=== PATIENT | male | born 1940 | race Caucasian/White ===

== ENCOUNTER 2016-10-10 23:38 | Inpatient (IN) ==
--- NOTE | 2016-10-10 23:58 | Emergency Department Note ---
Disposition Clinical Impression: Small bowel obstruction Disposition: Admitted As Inpatient Condition: Fair Time of Disposition: 03:26 Abdominal Pain HPI - General Chief Complaint: ED Abdominal Pain Stated Complaint: abdominal pain Time Seen by Provider: 10/10/16 23:40 Source: patient Mode of arrival: EMS Limitations: no limitations Nursing Notes Reviewed: Yes Vital Signs Reviewed: Yes - History of Present Illness HPI Narrative: Alert and oriented and nontoxic-appearing 76-year-old male is brought to the emergency department by EMS for evaluation of epigastric abdominal pain, bloating, nausea, vomiting, and subjective fevers. The patient states that his symptoms have been ongoing for the past several days however worsened this past Monday. The patient was seen and evaluated at the [facility] earlier this afternoon. He states that at that time, he underwent abdominal x-rays which are concerning for a small bowel obstruction. It was suggested to the patient at the OR that he be transferred to [place] for surgical consultation however the patient for some reason declined. He presents tonight after continued abdominal pain and vomiting after eating his evening meal. Pt Subjective Complaint: abdominal pain Onset (ago): day(s) Consistency: Worsening Location: epigastric Pain Severity: moderate Pain Scale: 4 Quality: aching, fullness Radiation: none Migration to: no migration Improves with: nothing Worsens with: eating Associated symptoms: Reports: nausea, vomiting, diarrhea, fever, chills. Denies : constipation, dysuria - Related Data Allergies Allergy/AdvReac Type Severity Reaction Status Date / Time azithromycin Allergy See Verified 10/10/16 23:39 Comments All systems ED: reviewed and negative except as stated. Constitutional: Reports: as per HPI, fever, chills. Denies: weakness, weight change Eyes: Denies: eye pain, eye discharge, vision change ENT ED: Denies: ear pain, throat pain, dental pain, hearing loss, epistaxis, congestion, dysphagia Cardiovascular: Denies: chest pain, palpitations, dyspnea on exertion, edema, syncope Respiratory: Denies: cough, dyspnea, wheezes, hemoptysis, stridor Gastrointestinal: Reports: as per HPI, abdominal pain, nausea, vomiting, diarrhea. Denies: constipation, hematemesis, melena, hematochezia Genitourinary: Denies: urgency, dysuria, frequency, hematuria Musculoskeletal: Denies: back pain, neck pain, arthralgia, myalgia Integumentary: Denies: rash, abrasion, lesions Neurological: Denies: headache, weakness, numbness, paresthesias, confusion, abnormal gait, vertigo Psychiatric: Denies: anxiety, depression, suicidal thoughts, homicidal thoughts , auditory hallucinations, visual hallucinations Endocrine: Denies: fatigue Hematological/Lymphatic: Denies: easy bleeding, easy bruising Allergic/Immunologic: Denies: facial swelling, urticaria Abdominal Pain PMH - Past Medical History Medical history: Reports: hypertension Male Surgical History: Reports: cholecystectomy, herniorrhaphy Psychiatric history: Reports: no psych history - Social History Smoking status: Former smoker Alcohol use: Reports: occasionally Drug use: Reports: none Physical Exam - General Limitations: no limitations General appearance: alert, in no apparent distress - Head Head exam: atraumatic, normocephalic, normal inspection - Eye Eye exam: Present: normal appearance, PERRL, EOMI. Absent: nystagmus - ENT ENT exam: mucous membranes moist - Neck Neck exam: Present: normal inspection, full ROM, trachea midline - Respiratory Respiratory exam: Present: normal lung sounds bilaterally - Cardiovascular Cardiovascular exam: Present: regular rate, normal rhythm, normal heart sounds - Abdominal Exam Abdominal exam: Present: soft, tenderness, distention (Mild distention noted), normal bowel sounds. Absent: guarding, rebound, rigidity Abdominal tenderness: Present: epigastrium, mild - Extremities Exam Extremities exam: Present: normal inspection, full ROM. Absent: tenderness, pedal edema - Neurological Exam Neurological exam: Present: alert, oriented X3 - Psychiatric Psychiatric exam: Present: normal affect, normal mood - Skin Skin exam: Present: warm, dry, intact, normal color Course Course Narrative: 0030: Records from the [facility] regarding the patient's previous visit there earlier today showed in fact the patient did undergo an acute abdominal series x-ray. The impression on the x-ray reading was as follows: Recommend further evaluation with CT and general surgery consultation. I have discussed this patient's case with Dr. Haji. Dr. Haji's had a [id number] evaluation with patient and reviewed his CT results. Dr. Garza states that as the patient has not vomited since he has been here, that we will forego placement of a nasogastric tube at this time. Raissa is recommend admitting the patient to the hospitalist service for further evaluation and observation. 0330: I have spoke with Dr. Chambers of the hospitalist service. Dr. Chambers has accepted the patient for further observation and evaluation. Vital Signs Temperature 98.3 F 10/10/16 23:39 Pulse Rate 100 10/10/16 23:39 Respiratory Rate 18 10/10/16 23:39 Blood Pressure 153/95 10/10/16 23:39 O2 Sat by Pulse Oximetry 97 10/10/16 23:39 Temperature 98.3 F 10/10/16 23:39 Pulse Rate 100 10/10/16 23:39 Respiratory Rate 18 10/10/16 23:39 Blood Pressure 153/95 10/10/16 23:39 O2 Sat by Pulse Oximetry 97 10/10/16 23:39 Oxygen Delivery Oxygen Delivery Room Air Abdominal Pain - Medical Records Medical records reviewed: Yes I reviewed the patient's medical records. - Lab Data Lab results reviewed: Yes I reviewed the patient's lab results. Lab results narrative: Laboratory Last Values WBC 9.3 K/mcL (4.3-11.1) 10/11/16 00:10 RBC 4.53 M/mcL (4.19-5.50) 10/11/16 00:10 Hgb 14.9 g/dL (12.9-16.9) 10/11/16 00:10 Hct 41.6 % (37.5-50.1) 10/11/16 00:10 MCV 91.8 fL (83.0-100.0) 10/11/16 00:10 MCH 32.9 pg (28.0-33.3) 10/11/16 00:10 MCHC 35.8 g/dL (31.6-35.5) H 10/11/16 00:10 RDW 12.0 % (11.5-14.5) 10/11/16 00:10 Plt Count 179 K/mcL (140-400) 10/11/16 00:10 MPV 9.1 fL (9.4-12.4) L 10/11/16 00:10 Immature Gran % 0.2 % (0-4) 10/11/16 00:10 Seg Neutrophils % 78.4 % 10/11/16 00:10 Lymphocytes % 11.3 % 10/11/16 00:10 Monocytes % 9.8 % 10/11/16 00:10 Eosinophils % 0.1 % 10/11/16 00:10 Basophils % 0.2 % 10/11/16 00:10 Neutrophils # 7.3 K/mcL (1.6-8.9) 10/11/16 00:10 Lymphocytes # 1.1 K/mcL (0.6-4.6) 10/11/16 00:10 Monocytes # 0.9 K/mcL (0.0-1.3) 10/11/16 00:10 Eosinophils # 0.0 K/mcL (0.0-0.6) 10/11/16 00:10 Basophils # 0.0 K/mcL (0.0-0.2) 10/11/16 00:10 PT 11.4 Seconds (9.4-12.1) 10/11/16 00:10 INR 1.1 10/11/16 00:10 APTT 24.9 Seconds (26.0-36.0) L 10/11/16 00:10 Sodium 136 mEq/L (136-145) 10/11/16 00:10 Potassium 3.9 mEq/L (3.5-4.5) 10/11/16 00:10 Chloride 103 mEq/L (98-109) 10/11/16 00:10 Carbon Dioxide 22 mEq/L (19-29) 10/11/16 00:10 BUN 27 mg/dL (8-26) H 10/11/16 00:10 Creatinine 1.31 mg/dL (0.72-1.25) H 10/11/16 00:10 Est GFR ( Amer) > 60 (> 60) 10/11/16 00:10 Est GFR (Non-Af Amer) 53 (> 60) L 10/11/16 00:10 BUN/Creatinine Ratio 21 (6-26) 10/11/16 00:10 Glucose 122 mg/dL (70-99) H 10/11/16 00:10 Calculated Osmolality 288 (280-300) 10/11/16 00:10 Lactic Acid 1.0 mmol/L (0.5-2.2) 10/11/16 00:10 Calcium 9.1 mg/dL (8.6-10.8) 10/11/16 00:10 Total Bilirubin 0.9 mg/dL (0.2-1.2) 10/11/16 00:10 Direct Bilirubin 0.4 mg/dL (0.0-0.5) 10/11/16 00:10 Indirect Bilirubin 0.5 mg/dL (0.0-1.2) 10/11/16 00:10 AST 21 Units/L (5-34) 10/11/16 00:10 ALT 22 Units/L (0-55) 10/11/16 00:10 Alkaline Phosphatase 62 Units/L (38-126) 10/11/16 00:10 Troponin I 0.00 ng/mL (0-0.03) 10/11/16 00:10 Serum Total Protein 7.5 g/dL (6.0-8.3) 10/11/16 00:10 Albumin 3.7 g/dL (3.5-5.0) 10/11/16 00:10 Globulin 3.8 g/dL (2.4-3.5) H 10/11/16 00:10 Albumin/Globulin Ratio 1.0 (1.1-2.2) L 10/11/16 00:10 Amylase 63 Units/L (25-125) 10/11/16 00:10 Lipase 20 Units/L (8-78) 10/11/16 00:10 Result diagrams: 10/11/16 00:10 10/11/16 00:10 Lab Results 10/11/16 10/11/16 10/11/16 Range/Units 00:10 00:10 00:10 WBC 9.3 (4.3-11.1) K/mcL RBC 4.53 (4.19-5.50) M/mcL Hgb 14.9 (12.9-16.9) g/dL Hct 41.6 (37.5-50.1) % MCV 91.8 (83.0-100.0) fL MCH 32.9 (28.0-33.3) pg MCHC 35.8 H (31.6-35.5) g/dL RDW 12.0 (11.5-14.5) % Plt Count 179 (140-400) K/mcL MPV 9.1 L (9.4-12.4) fL Immature Gran % 0.2 (0-4) % Seg Neutrophils % 78.4 % Lymphocytes % 11.3 % Monocytes % 9.8 % Eosinophils % 0.1 % Basophils % 0.2 % Neutrophils # 7.3 (1.6-8.9) K/mcL Lymphocytes # 1.1 (0.6-4.6) K/mcL Monocytes # 0.9 (0.0-1.3) K/mcL Eosinophils # 0.0 (0.0-0.6) K/mcL Basophils # 0.0 (0.0-0.2) K/mcL PT 11.4 (9.4-12.1) Seconds INR 1.1 APTT 24.9 L (26.0-36.0) Seconds Sodium 136 (136-145) mEq/L Potassium 3.9 (3.5-4.5) mEq/L Chloride 103 (98-109) mEq/L Carbon Dioxide 22 (19-29) mEq/L BUN 27 H (8-26) mg/dL Creatinine 1.31 H (0.72-1.25) mg/dL Est GFR ( Amer) > 60 (> 60) Est GFR (Non-Af Amer) 53 L (> 60) BUN/Creatinine Ratio 21 (6-26) Glucose 122 H (70-99) mg/dL Calculated Osmolality 288 (280-300) Lactic Acid (0.5-2.2) mmol/L Calcium 9.1 (8.6-10.8) mg/dL Total Bilirubin 0.9 (0.2-1.2) mg/dL Direct Bilirubin 0.4 (0.0-0.5) mg/dL Indirect Bilirubin 0.5 (0.0-1.2) mg/dL AST 21 (5-34) Units/L ALT 22 (0-55) Units/L Alkaline Phosphatase 62 (38-126) Units/L Troponin I (0-0.03) ng/mL Serum Total Protein 7.5 (6.0-8.3) g/dL Albumin 3.7 (3.5-5.0) g/dL Globulin 3.8 H (2.4-3.5) g/dL Albumin/Globulin Ratio 1.0 L (1.1-2.2) Amylase 63 (25-125) Units/L Lipase 20 (8-78) Units/L 07/25/17 07/25/17 Range/Units 00:10 00:10 WBC (4.3-11.1) K/mcL RBC (4.19-5.50) M/mcL Hgb (12.9-16.9) g/dL Hct (37.5-50.1) % MCV (83.0-100.0) fL MCH (28.0-33.3) pg MCHC (31.6-35.5) g/dL RDW (11.5-14.5) % Plt Count (140-400) K/mcL MPV (9.4-12.4) fL Immature Gran % (0-4) % Seg Neutrophils % % Lymphocytes % % Monocytes % % Eosinophils % % Basophils % % Neutrophils # (1.6-8.9) K/mcL Lymphocytes # (0.6-4.6) K/mcL Monocytes # (0.0-1.3) K/mcL Eosinophils # (0.0-0.6) K/mcL Basophils # (0.0-0.2) K/mcL PT (9.4-12.1) Seconds INR APTT (26.0-36.0) Seconds Sodium (136-145) mEq/L Potassium (3.5-4.5) mEq/L Chloride (98-109) mEq/L Carbon Dioxide (19-29) mEq/L BUN (8-26) mg/dL Creatinine (0.72-1.25) mg/dL Est GFR ( Amer) (> 60) Est GFR (Non-Af Amer) (> 60) BUN/Creatinine Ratio (6-26) Glucose (70-99) mg/dL Calculated Osmolality (280-300) Lactic Acid 1.0 (0.5-2.2) mmol/L Calcium (8.6-10.8) mg/dL Total Bilirubin (0.2-1.2) mg/dL Direct Bilirubin (0.0-0.5) mg/dL Indirect Bilirubin (0.0-1.2) mg/dL AST (5-34) Units/L ALT (0-55) Units/L Alkaline Phosphatase (38-126) Units/L Troponin I 0.00 (0-0.03) ng/mL Serum Total Protein (6.0-8.3) g/dL Albumin (3.5-5.0) g/dL Globulin (2.4-3.5) g/dL Albumin/Globulin Ratio (1.1-2.2) Amylase (25-125) Units/L Lipase (8-78) Units/L - Radiology Data Radiology results reviewed: Yes I reviewed the patient's radiology results. Chest X-Ray 10/10/16 23:49 IMPRESSION: No acute process. D/ / Elvin Dempsey MD / Elvin Dempsey MD Interpreting Provider: Elvin Dempsey MD Abdomen/Pelvis CT 10/11/16 00:39 IMPRESSION: Small bowel obstruction, possibly a partial small bowel obstruction given the lack of a focal transition point. D/ / Zackery Mcghee MD / Zackery Mcghee MD Interpreting Provider: Zackery Mcghee MD - EKG Data EKG attestation: Yes I reviewed and interpreted this EKG. EKG results narrative: EKG reviewed by Dr. Haji as well. EKG shows a sinus rhythm at a rate of 89 bpm. IN interval 154, QRS duration 85, QT/QTc is 334/380. No ectopy noted. No STEMI. Attestation Statement - Attestation Attestation: I, Luciano Haji MD, personally evaluated this patient and discussed their management with the midlevel provicer, PAC/SPEECH PATHOLOGIST ASSISTANT. I reviewed the midlevel provider 's note and agree with the documented findings, medical decision making, and plan of care. 76-year-old male presents to the emergency department with a complaint of just not feeling well for about the past week. States especially for the past for 5 days after he mowed his yard and that he he has not felt well. Monday evening he had some nausea and several episodes of vomiting. Since then he had no further vomiting but has had some nausea and generalized abdominal discomfort. He was seen earlier today at the OR for these complaints. He had an x-ray which they read as possible bowel obstruction. He presents here tonight because after he went home from the OR this evening he had another episode of vomiting with some increased abdominal discomfort and distention. He has been passing gas and after [facility] he had several loose bowel movements. No melena, hematemesis, or hematochezia. No urinary symptoms. No fever. He has a prior history of 2 small bowel obstructions in the past which resolved spontaneously. He has had a laparoscopic cholecystectomy. On examination patient is a well-developed well-nourished well-appearing elderly male in no acute distress. He is alert and oriented 3. There is no cyanosis or diaphoresis. Breath sounds are clear and equal bilaterally. Heart regular rate and rhythm. Abdomen is soft with some increased bowel sounds. There is mild distention. No obvious organomegaly or masses palpable. Labs reviewed. CT of the abdomen and pelvis consistent with partial small bowel obstruction. The hospitalist, Dr. Chambers, was consulted and accepted admission of the patient.
[2016-10-11 00:20] LABS: Basophils % 0.2 %; Eosinophils % 0.1 %; Hematocrit 41.6 % (37.5-50.1); Hemoglobin 14.9 g/dL (12.9-16.9); Immature Granulocytes % 0.2 % (0-4); Lymphocytes # 1.1 K/mcL (0.6-4.6); Lymphocytes % 11.3 %; Mean Corpuscular HGB Conc 35.8 g/dL (31.6-35.5); Mean Corpuscular Hemoglobin 32.9 pg (28.0-33.3); Mean Corpuscular Volume 91.8 fL (83.0-100.0); Mean Platelet Volume 9.1 fL (9.4-12.4); Monocytes # 0.9 K/mcL (0.0-1.3); Monocytes % 9.8 %; Neutrophils # 7.3 K/mcL (1.6-8.9); Platelet Count 179 K/mcL (140-400); Red Blood Count 4.53 M/mcL (4.19-5.50); Segmented Neutrophils % 78.4 %
[2016-10-11 00:25] LABS: INR 1.1; Prothrombin Time 11.4 Seconds (9.4-12.1)
[2016-10-11 00:27] LABS: Activated Partial Thrombo Time 24.9 Seconds (26.0-36.0)
[2016-10-11 00:34] LABS: Alanine Aminotransferase 22 Units/L (0-55); Albumin 3.7 g/dL (3.5-5.0); Alkaline Phosphatase 62 Units/L (38-126); Amylase 63 Units/L (25-125); Aspartate Amino Transferase 21 Units/L (5-34); BUN/Creatinine Ratio 21 (6-26); Bilirubin,Direct 0.4 mg/dL (0.0-0.5); Bilirubin,Indirect 0.5 mg/dL (0.0-1.2); Bilirubin,Total 0.9 mg/dL (0.2-1.2); Blood Urea Nitrogen 27 mg/dL (8-26); Calcium 9.1 mg/dL (8.6-10.8); Carbon Dioxide 22 mEq/L (19-29); Chloride 103 mEq/L (98-109); Globulin 3.8 g/dL (2.4-3.5); Glucose 122 mg/dL (70-99); Lipase 20 Units/L (8-78); Osmolality,Calculated 288 (280-300); Potassium 3.9 mEq/L (3.5-4.5); Sodium 136 mEq/L (136-145); Total Protein 7.5 g/dL (6.0-8.3); eGFR For African Americans > 60 (> 60); eGFR For Non-African Americans 53 (> 60)
[2016-10-11] MEDS ORDERED: 0.9 % Sodium Chloride 1,000 ML IVC ONE (00:45)
[2016-10-11] MEDS ORDERED: Ondansetron 4 MG/2 ML VIAL IVP PRN (04:30)
[2016-10-11] MEDS ORDERED: Naloxone 0.4 MG/ML INJ IVP PRN (04:30)
--- NOTE | 2016-10-11 04:34 | Internal Med History&Physical ---
Date of Encounter: 10/11/16 Time of Encounter: 05:00 Assessment and Plan (1) Partial small bowel obstruction Current visit: Yes Status: Acute Keep patient nothing by mouth. Most likely partial SBO because patient is having bowel movements. Serial abdominal exams. KUB x-ray in the morning. If patient develops episodes of nausea or vomiting, we will place NG tube. Consult surgery in a.m. Monitor vital signs. IV hydration. IV antiemetics and pain medications as needed. Moderate risk for complications (2) Essential hypertension Current visit: Yes Status: Chronic Blood pressure elevated. Likely from pain. Will treat with intravenous medications as needed. Internal Medicine - H&P: HPI Chief complaint: Abdominal pain, nausea Admitted From: Emergency Dept Plans for Post Hospital Care: Home History of present illness: Mr. Sarmiento is a 76 year old male patient with a history of essential hypertension presented to the ER with complaints of abdominal pain. Pain was generalized rated 4-10 in severity. Nonradiating. Symptoms have been going on for about 3 days. He had gone to the ER at [facility] yesterday and had undergone an abdominal x-ray which suggested that he had possible small bowel obstruction. He was recommended transfer to a tertiary care center for further evaluation. However, he decided to go home and see if it resolves spontaneously. His symptoms did not improve and so he came to the ER here. He has had a couple prior episodes of possible small bowel obstruction which resolved spontaneously with bowel rest in the hospital. He has only had a laparoscopic cholecystectomy in the past. He does have some nausea and had 1 episode of emesis. He has been having loose bowel movements over the past 3 days. Since coming to the ER, he has had about 6 bowel movements. Past Med Surg Social Fam HX - Past Medical History Attestation: Yes The following information was validated with the patient. Source: patient Medical history: hypertension Psychiatric history: no psych history - Social History Smoking Status: Former smoker Smokeless Tobacco Status: No Alcohol use: occasionally Drug use: none - Family History Father Hx Family Cardiac Disorders: Yes (CHF) Internal Medicine - H&P: Meds Allergies azithromycin Allergy (Verified 10/10/16 23:39) See Comments swelling of groin All Systems PM: A 10-system review of systems was performed and is negative for pertinent findings except as documented above in the HPI. - Constitutional Constitutional: no chills, no fever(s), no night sweats - EENT Eyes: no change in vision, no discharge, no pain, no photophobia Ears: no ear discharge, no ear pain, no tinnitus Nose, mouth and throat: no dysphagia, no nasal discharge, no neck pain, no sore throat - Cardiovascular Cardiovascular ROS IM: no chest pain, no diaphoresis, no dyspnea, no lightheadedness, no palpitations, no syncope - Respiratory Respiratory: no cough, no dyspnea, no wheezing, no excessive phlegm production - Gastrointestinal Gastrointestinal: nausea, no abdominal pain, no diarrhea, no hematemesis, no hematochezia, no melena, no vomiting - Musculoskeletal Musculoskeletal ROS IM: no numbness, no tingling - Integumentary Integumentary IM: no rash, no unusual bruising - Neurological Neurological ROS: no confusion, no convulsions, no focal weakness, no numbness, no tingling, no tremor(s) - Hematologic/Lymphatic Hematologic/Lymphatic: no easy bruising - Constitutional Vitals: Temp Pulse Resp BP Pulse Ox 0 F L 82 0 0/0 98 10/11/16 04:19 10/11/16 04:11 10/11/16 04:19 10/11/16 04:19 10/11/16 04:11 General appearance: Present: cooperative, A&O X 3, answers questions appropriately - Eye Eye exam: Present: EOMI, PERRL, conjuntiva pink, sclera anicteric - Neck Neck exam general surgery: Present: supple, trachea midline. Absent: lymphadenopathy - Respiratory Respiratory exam: Present: CTAB. Absent: accessory muscle use, rales, rhonchi, wheezes - Cardiovascular Cardiovascular exam: Present: RRR, +S1, +S2. Absent: diastolic murmur, gallop, rubs, systolic murmur - GI/Abdominal GI/Abdominal exam: Present: diminished bowel sounds, soft, no peritoneal signs. Absent: distended, tenderness - Extremities Exam Extremities exam: Present: warm, radial pulses palpable and symetrical. Absent : calf tenderness, cyanotic, pedal edema - Neurological Exam Neurological exam: Present: CN II-XII intact, oriented X3, no focal deficits. Absent: facial droop, speech deficit - Skin Skin exam: Present: dry, intact Internal Med - H&P Results - Labs CBC & Chem 7: 10/11/16 00:10 10/11/16 00:10 - Impressions Impressions Chest X-Ray 10/10/16 23:49 IMPRESSION: No acute process. D/ / Elvin Dempsey MD / Elvin Dempsey MD Interpreting Provider: Elvin Dempsey MD Abdomen/Pelvis CT 10/11/16 00:39 IMPRESSION: Small bowel obstruction, possibly a partial small bowel obstruction given the lack of a focal transition point. D/ / Zackery Mcghee MD / Zackery Mcghee MD Interpreting Provider: Zackery Mcghee MD
[2016-10-11] MEDS ORDERED: *HR* Morphine 2 MG/ML SYRINGE IVP PRN (04:43)
[2016-10-11] MEDS: 0.9 % Sodium Chloride 1,000 ML IVC SCH ×2 (05:27→14:54)
[2016-10-11] MEDS: Pantoprazole 40 MG VIAL IVP SCH (08:58)
[2016-10-11 09:39] LABS: Bilirubin,Urine Small (Negative); Blood,Urine Negative (Negative); Clarity,Urine Clear (Clear); Color,Urine Yellow (Yellow); Glucose,Urine (UA) Normal (Normal); Ketones,Urine 40 mg/dL (Negative); Leukocyte Esterase,Urine Negative (Negative); Nitrite,Urine Negative (Negative); Protein,Urine 30 mg/dL (Neg-Trace); Urobilinogen,Urine Normal (Normal)
[2016-10-11 09:41] LABS: Hyaline Casts,Urine None Seen per lpf (None-Few); Squamous Epithelial Cell,Urine Moderate per lpf (None-Few); WBC,Urine 0-3 per hpf (0-3)
--- NOTE | 2016-10-11 09:54 | Event Note ---
Date of Encounter: 10/11/16 Time of Encounter: 09:54 76-year-old male with history of hypertension presents with complaints of abdominal pain, nausea and vomiting. CT abdomen/pelvis done in the emergency room showed changes suggestive of partial small bowel obstruction. Patient seen and examined at bedside. Reports improvement in abdominal pain, nausea and vomiting. He continues to have some diarrhea. Chest-S1, S2 heard. Lungs are clear to auscultation. Abdomen-soft, nondistended, nontender. Bowel sounds noted to be normal. Labs reviewed-serum creatinine 1.3, baseline creatinine not available. Stool GI panel, stool C. difficile toxin noted to be negative. Partial small bowel obstruction-noted to be improving clinically. Will start clear liquid diet and advance as tolerated. Supportive care with IV hydration, when necessary antiemetics and pain control with when necessary IV morphine. Diarrhea-presumed noninfectious. Serology for C. difficile toxin and GI panel remains negative.
[2016-10-11 10:01] LABS: Bacteria,Urine Few per hpf (None-Few); Mucus,Urine Few (Few)
[2016-10-11 12:50] LABS: Adenovirus F 40/41 PCR Not detected (Not detect); Astrovirus PCR Not detected (Not detect); C.difficile Toxin A/B by PCR Not detected (Not detect); Campylobacter by PCR Not detected (Not detect); Cryptosporidium by PCR Not detected (Not detect); Cyclospora cayetanensis PCR Not detected (Not detect); E. coli O157 by PCR Not detected (Not detect); Entamoeba histolytica PCR Not detected (Not detect); Enteroaggregative E.coli(EAEC) Not detected (Not detect); Enteropathogenic E.coli(EPEC) Not detected (Not detect); Enterotoxigenic E.coli (ETEC) Not detected (Not detect); Giardia lamblia PCR Not detected (Not detect); Norovirus GI/GII PCR Not detected (Not detect); Plesiomonas shigelloides PCR Not detected (Not detect); Rotavirus A PCR Not detected (Not detect); Salmonella PCR Not detected (Not detect); Sapovirus PCR Not detected (Not detect); Shig/EnteroinvasiveE coli EIEC Not detected (Not detect); Shigalike tox-prod E coli STEC Not detected (Not detect); Vibrio PCR Not detected (Not detect); Vibrio cholerae PCR Not detected (Not detect); Yersinia enterocolitica PCR Not detected (Not detect)
[2016-10-12] MEDS: 0.9 % Sodium Chloride 1,000 ML IVC SCH (00:43)
[2016-10-12 04:32] LABS: Basophils % 0.3 %; Eosinophils # 0.1 K/mcL (0.0-0.6); Eosinophils % 0.8 %; Hematocrit 32.8 % (37.5-50.1); Immature Granulocytes % 0.5 % (0-4); Lymphocytes # 1.5 K/mcL (0.6-4.6); Lymphocytes % 15.6 %; Mean Corpuscular HGB Conc 35.1 g/dL (31.6-35.5); Mean Corpuscular Hemoglobin 32.7 pg (28.0-33.3); Mean Corpuscular Volume 93.2 fL (83.0-100.0); Monocytes # 1.3 K/mcL (0.0-1.3); Monocytes % 13.2 %; Neutrophils # 6.6 K/mcL (1.6-8.9); Platelet Count 161 K/mcL (140-400); Red Blood Count 3.52 M/mcL (4.19-5.50); Segmented Neutrophils % 69.6 %
[2016-10-12 04:44] LABS: BUN/Creatinine Ratio 17 (6-26); Carbon Dioxide 23 mEq/L (19-29); Chloride 112 mEq/L (98-109); Glucose 85 mg/dL (70-99); Osmolality,Calculated 288 (280-300); Potassium 3.7 mEq/L (3.5-4.5); Sodium 139 mEq/L (136-145); eGFR For African Americans > 60 (> 60); eGFR For Non-African Americans > 60 (> 60)
[2016-10-12 04:45] LABS: Blood Urea Nitrogen 15 mg/dL (8-26); Calcium 7.6 mg/dL (8.6-10.8)
[2016-10-12 05:03] LABS: Hemoglobin 11.5 g/dL (12.9-16.9)
--- NOTE | 2016-10-12 07:50 | Electrocardiograph Report ---
[address] [address] Test Date: 2016-10-11 Pat Name: Ck Sarmiento Department: 105 Room: 3A35 Gender: M Deburrer Machine: : [id number] Requested By: Mikhail Burkett Order Number: [id number] Reading MD: Papo Mcintyre MD Measurements Intervals [place] Rate: 89 P: -21 KS: 154 QRS: -1 QRSD: 85 T: 31 QT: 334 QTc: 380 Interpretive Statements SINUS RHYTHM Electronically Signed On 10-12-2016 7:49:05 EDT by Papo Mcintyre MD
[2016-10-12] MEDS: Pantoprazole 40 MG VIAL IVP SCH (08:38)
[2016-10-12 10:50] VITALS: BP 123/70
--- NOTE | 2016-10-12 13:45 | Discharge Summary ---
Date of Encounter: 10/12/16 Time of Encounter: 12:00 - Discharge Diagnosis (1) Partial small bowel obstruction Priority: Primary Status: Acute (2) Essential hypertension Priority: Secondary Status: Chronic - Discharge Medications Home Medications: Dextran 70/Hypromellose [Artificial Tears Eye Drops] 1 drop BOTH EYES DAILY [History] Lisinopril [Zestril] 20 mg PO DAILY 10/11/16 [History] Ubidecarenone [Coq10] 100 mg PO DAILY 10/11/16 [History] Vit C/Vit E/Lutein/Min/[place]-3 [Ocuvite Softgel] 1 cap PO DAILY 10/11/16 [ History] Allergies/Adverse Reactions: Allergies azithromycin Allergy (Verified 10/10/16 23:39) See Comments swelling of groin Date of admission: 10/11/16 03:45 Primary care physician: PCP [place] Discharging clinician: Tanya Mccall Anticipated date of discharge: 10/12/16 - Patient Status Disposition: Home, Self-Care Condition: Fair Functional capacity at discharge: independent ambulation Overall status at discharge: patient is progressing back to baseline - Discharge Instructions Follow Up With: [facility] [Outside] - 10/20/16 10:15 am Additional Instructions: F/up with PCP in 1-2 weeks - Diet and Activity Activity: resume usual activities as tolerated Diet: advance to your usual diet, low fat, low cholesterol, low salt diet Hospital course: Mr. Sarmiento is a 76 year old male admitted with abdominal pain, nausea and vomiting. CT abdomen/pelvis showed changes suggestive of partial small bowel obstruction. Patient was noted to have diarrhea. Stool C. difficile toxin and GI panel remained negative. Patient was initially given bowel rest along with IV hydration and supportive care with when necessary antiemetics and pain control. His symptoms gradually improved and he is able to tolerate oral diet and wants to be discharged today. He is otherwise medically stable and is recommended to follow-up with his primary care provider at the [facility]. - Time Spent with Patient Total time spent providing and/or coordinating discharge services: Greater than 30 minutes (35 min) - Constitutional Vitals: Temp Pulse Resp BP Pulse Ox 98.6 F 60 20 123/70 94 10/12/16 10:46 10/12/16 10:46 10/12/16 10:46 10/12/16 10:46 10/12/16 10:46 General appearance: Present: cooperative, A&O X 3, answers questions appropriately - GI/Abdominal GI/Abdominal exam: Present: normal bowel sounds, soft, no peritoneal signs. Absent: distended, tenderness
== END 2016-10-12 14:00 | disposition home or self-care (01) | DRG 390 ==
LOC: EMEROO 23:38 → SUATTDRO 10-11 03:45 → 3ANU 10-11 03:45
PROVIDERS: ADMIT Psychiatry & Neurology Psychiatry; ATTEND Internal Medicine

== ENCOUNTER 2017-06-12 21:04 | Inpatient (IN) ==
[2017-06-12] MEDS ORDERED: 0.9 % Sodium Chloride 1,000 ML IVC ONE (21:21)
[2017-06-12] MEDS ORDERED: Ondansetron 4 MG/2 ML VIAL IVP ONE (21:23)
--- NOTE | 2017-06-12 21:26 | Emergency Department Note ---
Disposition Clinical Impression: Small bowel obstruction Disposition: Admitted As Inpatient Condition: Good Forms: ED Satisfaction Letter Time of Disposition: 22:56 General Adult HPI - General Chief complaint: ED Syncope Stated complaint: abd pain Time Seen by Provider: 06/12/17 21:17 Source: patient, EMS Limitations: no limitations Nursing Notes Reviewed: Yes Vital Signs Reviewed: Yes - History of Present Illness Pain Scale: 7 - Related Data Home Medications Medication Instructions Recorded Confirmed Dextran 70/Hypromellose 1 drop BOTH EYES DAILY 10/11/16 10/11/16 [Artificial Tears Eye Drops] Lisinopril [Zestril] 20 mg PO DAILY 10/11/16 10/11/16 Ubidecarenone [Coq10] 100 mg PO DAILY 10/11/16 10/11/16 Vit C/Vit E/Lutein/Min/[place]-3 1 cap PO DAILY 10/11/16 10/11/16 [Ocuvite Softgel] Previous Rx's Medication Instructions Recorded Dicyclomine [Bentyl] 10 mg PO QID #20 capsule 10/25/16 Allergies Allergy/AdvReac Type Severity Reaction Status Date / Time azithromycin Allergy See Verified 10/10/16 23:39 Comments All systems ED: reviewed and negative except as stated. Constitutional: Reports: chills. Denies: fever Cardiovascular: Reports: syncope. Denies: chest pain, palpitations Respiratory: Denies: cough, dyspnea, wheezes Gastrointestinal: Reports: abdominal pain (Diffuse), nausea, diarrhea (Yesterday ). Denies: vomiting Genitourinary: Denies: urgency, dysuria, frequency Musculoskeletal: Denies: back pain, neck pain Integumentary: Denies: rash, abrasion Neurological: Denies: headache, weakness Past Medical History - Past Medical History Attestation: Yes The following information was validated with the patient. Source: patient Medical history: Reports: hypertension, other Surgical history: Reports: cholecystectomy, herniorrhaphy Psychiatric history: Reports: no psych history - Social History Smoking Status: Former smoker Smokeless Tobacco Status: No Alcohol use: Reports: occasionally Drug use: Reports: none Physical Exam - General Limitations: no limitations General appearance: alert, in no apparent distress - Head Head exam: atraumatic, normocephalic, normal inspection - Eye Eye exam: Present: normal appearance, PERRL, EOMI - ENT ENT exam: normal exam, normal oropharynx, mucous membranes moist - Neck Neck exam: Present: normal inspection, full ROM, trachea midline - Chest Chest inspection: Present: normal inspection, symmetric chest wall rise - Respiratory Respiratory exam: Present: normal lung sounds bilaterally. Absent: respiratory distress, accessory muscle use - Cardiovascular Cardiovascular exam: Present: regular rate, normal rhythm, normal heart sounds - Abdominal Exam Abdominal exam: Present: soft, tenderness (Diffusely), distention (Mild). Absent: guarding, rigidity - Extremities Exam Extremities exam: Present: normal inspection, full ROM. Absent: tenderness, pedal edema - Back Exam Back exam: Present: normal inspection, full ROM. Absent: tenderness - Neurological Exam Neurological exam: Present: alert, oriented X3 - Psychiatric Psychiatric exam: Present: normal affect, normal mood - Skin Skin exam: Present: warm, dry, intact, normal color Course Course Narrative: Male patient presenting to the emergency department complaining of a syncopal event today. He was sitting on the toilet and felt like he was going to vomit. States he woke up after he struck his head on the wall. Patient complains of a couple episodes of diarrhea yesterday. And that he was nauseated today. States that he was sitting on the toilet belly he is going to vomit. That is when he passed out. States this is happened several times previously and every time he has had to be admitted for a partial small bowel obstruction. His abdomen is soft and nonrigid that he does complain of some mild pain to his left upper quadrant. We will provide patient with a fluid bolus and Zofran while here. We will get a CT of his head due to the fall as well as a CT of his abdomen. He is refusing to drink oral contrast at this time. We will get a noncontrasted CT. We will also get basic lab workup. I anticipate admission. - Reevaluation(s) Reevaluation #1: Patient reevaluated. He is resting comfortably in bed. We have been alerted by radiology the patient does have a small bowel obstruction. We will contact surgery and admitted to the hospital at this time. Time: 22:31 - Consultations Consultation #1: I spoke with Dr. Park. She is requesting we admit to the hospitalist service and she will see the patient here. Time: 22:40 Consultation #2: Dr Ornelas accepted Pt in stable condition. Time: 22:51 Vital Signs Temperature 98.3 F 06/12/17 21:05 Pulse Rate 90 06/12/17 21:05 Respiratory Rate 18 06/12/17 21:05 Blood Pressure 158/67 06/12/17 21:05 O2 Sat by Pulse Oximetry 98 06/12/17 21:05 Temperature 98.3 F 06/12/17 21:05 Pulse Rate 90 06/12/17 21:05 Respiratory Rate 18 06/12/17 21:05 Blood Pressure 158/67 06/12/17 21:05 O2 Sat by Pulse Oximetry 98 06/12/17 21:05 Oxygen Delivery Oxygen Delivery Room Air Medical Decision Making - Medical Records Medical records reviewed: Yes I reviewed the patient's medical records. - Lab Data Lab results reviewed: Yes I reviewed the patient's lab results. Result diagrams: 06/12/17 21:52 06/12/17 21:52 Lab Results 06/12/17 06/12/17 Range/Units 21:52 21:52 WBC 11.3 H (4.3-11.1) K/mcL RBC 4.18 L (4.19-5.50) M/mcL Hgb 13.9 (12.9-16.9) g/dL Hct 39.9 (37.5-50.1) % MCV 95.5 (83.0-100.0) fL MCH 33.3 (28.0-33.3) pg MCHC 34.8 (31.6-35.5) g/dL RDW 12.2 (11.5-14.5) % Plt Count 185 (140-400) K/mcL MPV 8.8 L (9.4-12.4) fL Immature Gran % 0.4 (0-4) % Seg Neutrophils % 83.6 % Lymphocytes % 9.2 % Monocytes % 6.5 % Eosinophils % 0.1 % Basophils % 0.2 % Neutrophils # 9.5 H (1.6-8.9) K/mcL Lymphocytes # 1.0 (0.6-4.6) K/mcL Monocytes # 0.7 (0.0-1.3) K/mcL Eosinophils # 0.0 (0.0-0.6) K/mcL Basophils # 0.0 (0.0-0.2) K/mcL Sodium 140 (136-145) mEq/L Potassium 4.1 (3.5-5.1) mEq/L Chloride 107 (98-107) mEq/L Carbon Dioxide 21 L (23-29) mEq/L BUN 14 (8-23) mg/dL Creatinine 1.10 (0.70-1.30) mg/dL Est GFR ( Amer) > 60 (> 60) Est GFR (Non-Af Amer) > 60 (> 60) BUN/Creatinine Ratio 13 (6-26) Glucose 106 H (70-105) mg/dL Calculated Osmolality 291 (280-300) Calcium 8.9 (8.6-10.3) mg/dL Total Bilirubin 0.9 (0.3-1.0) mg/dL AST 14 (13-39) Units/L ALT 12 (7-52) Units/L Alkaline Phosphatase 59 (34-104) Units/L Troponin I < 0.03 (< 0.04) ng/mL Serum Total Protein 6.7 (6.4-8.9) g/dL Albumin 4.0 (3.5-5.7) g/dL Globulin 2.7 (2.4-3.5) g/dL Albumin/Globulin Ratio 1.5 (1.1-2.2) - Radiology Data Radiology results reviewed: Yes I reviewed the patient's radiology results. Chest X-Ray 06/12/17 21:21 IMPRESSION: No acute cardiopulmonary disease. D/ / Vitaly Grissom MD / Vitaly Grissom MD Interpreting Provider: Vitaly Grissom MD Head CT 06/12/17 21:22 IMPRESSION: No acute intracranial abnormality. D/ / Juaquin Bhatt MD / Juaquin Bhatt MD Interpreting Provider: Juaquin Bhatt MD Abdomen/Pelvis CT 06/12/17 21:24 IMPRESSION: Small bowel obstruction. No evidence of necrotic bowel at this time. RECOMMENDATIONS: The findings were sent to the Radiology Results Communication Center at 10:21 pm on 06/12/2017to be communicated to a licensed caregiver. D/ / 06/12/2017 22:28:05 Juaquin Bhatt MD / Yesi Naylor Interpreting Provider: Juaquin Bhatt MD - EKG Data EKG #1 EKG attestation: Yes I reviewed and interpreted this EKG. EKG results narrative: Normal sinus rhythm at a rate 86. MA interval is 161. Castration is 82. QT is 341. QTC is 384. No signs of acute ischemia. Good R-wave progression. No significant change from previous EKG dated 10/11/2016.
[2017-06-12 22:08] LABS: Basophils % 0.2 %; Eosinophils % 0.1 %; Hematocrit 39.9 % (37.5-50.1); Hemoglobin 13.9 g/dL (12.9-16.9); Immature Granulocytes % 0.4 % (0-4); Lymphocytes % 9.2 %; Mean Corpuscular HGB Conc 34.8 g/dL (31.6-35.5); Mean Corpuscular Hemoglobin 33.3 pg (28.0-33.3); Mean Corpuscular Volume 95.5 fL (83.0-100.0); Mean Platelet Volume 8.8 fL (9.4-12.4); Monocytes # 0.7 K/mcL (0.0-1.3); Monocytes % 6.5 %; Neutrophils # 9.5 K/mcL (1.6-8.9); Platelet Count 185 K/mcL (140-400); Red Blood Count 4.18 M/mcL (4.19-5.50); Red Cell Distribution Width 12.2 % (11.5-14.5); Segmented Neutrophils % 83.6 %
[2017-06-12 22:25] LABS: Alanine Aminotransferase 12 Units/L (7-52); Albumin/Globulin Ratio 1.5 (1.1-2.2); Alkaline Phosphatase 59 Units/L (34-104); Aspartate Amino Transferase 14 Units/L (13-39); BUN/Creatinine Ratio 13 (6-26); Bilirubin,Total 0.9 mg/dL (0.3-1.0); Blood Urea Nitrogen 14 mg/dL (8-23); Calcium 8.9 mg/dL (8.6-10.3); Carbon Dioxide 21 mEq/L (23-29); Chloride 107 mEq/L (98-107); Globulin 2.7 g/dL (2.4-3.5); Glucose 106 mg/dL (70-105); Osmolality,Calculated 291 (280-300); Potassium 4.1 mEq/L (3.5-5.1); Sodium 140 mEq/L (136-145); Total Protein 6.7 g/dL (6.4-8.9); Troponin I < 0.03 ng/mL (< 0.04); eGFR For African Americans > 60 (> 60); eGFR For Non-African Americans > 60 (> 60)
[2017-06-12] MEDS: *HR* FentaNYL (PF) 100 MCG/2 ML VIAL IVP ONE ×2 (22:58→23:03)
[2017-06-12] MEDS ORDERED: Pantoprazole 40 MG VIAL IVP ONE (23:01)
--- NOTE | 2017-06-13 00:52 | Emergency Department Note ---
Disposition Clinical Impression: Small bowel obstruction Disposition: Admitted As Inpatient Condition: Good Forms: ED Satisfaction Letter General Adult HPI - General Chief complaint: ED Syncope Stated complaint: abd pain Time Seen by Provider: 06/12/17 21:17 Source: patient, EMS Mode of arrival: ambulatory Limitations: no limitations Nursing Notes Reviewed: Yes Vital Signs Reviewed: Yes - History of Present Illness Pain Scale: 0 - Related Data Home Medications Medication Instructions Recorded Confirmed Dextran 70/Hypromellose 1 drop BOTH EYES DAILY 10/11/16 10/11/16 [Artificial Tears Eye Drops] Lisinopril [Zestril] 20 mg PO DAILY 10/11/16 10/11/16 Ubidecarenone [Coq10] 100 mg PO DAILY 10/11/16 10/11/16 Vit C/Vit E/Lutein/Min/[place]-3 1 cap PO DAILY 10/11/16 10/11/16 [Ocuvite Softgel] Previous Rx's Medication Instructions Recorded Dicyclomine [Bentyl] 10 mg PO QID #20 capsule 10/25/16 Allergies Allergy/AdvReac Type Severity Reaction Status Date / Time azithromycin Allergy See Verified 10/10/16 23:39 Comments Constitutional: Reports: chills. Denies: fever Cardiovascular: Reports: syncope. Denies: chest pain, palpitations Respiratory: Denies: cough, dyspnea, wheezes Gastrointestinal: Reports: abdominal pain (Diffuse), nausea, diarrhea (Yesterday ). Denies: vomiting Genitourinary: Denies: urgency, dysuria, frequency Musculoskeletal: Denies: back pain, neck pain Integumentary: Denies: rash, abrasion Neurological: Denies: headache, weakness Past Medical History - Past Medical History Medical history: Reports: hypertension, other Surgical history: Reports: cholecystectomy, herniorrhaphy Psychiatric history: Reports: no psych history - Social History Smoking Status: Former smoker Smokeless Tobacco Status: No Alcohol use: Reports: occasionally Drug use: Reports: none Physical Exam - General Limitations: no limitations General appearance: alert, in no apparent distress Course Vital Signs Temperature 98.3 F 06/12/17 21:05 Pulse Rate 90 06/12/17 21:05 Respiratory Rate 18 06/12/17 21:05 Blood Pressure 158/67 06/12/17 21:05 O2 Sat by Pulse Oximetry 98 06/12/17 21:05 Temperature 98.3 F 06/12/17 21:05 Pulse Rate 82 06/12/17 22:59 Respiratory Rate 18 06/13/17 00:39 Blood Pressure 149/79 06/13/17 00:39 O2 Sat by Pulse Oximetry 98 06/12/17 22:59 Oxygen Delivery Oxygen Delivery Room Air Medical Decision Making - Lab Data Result diagrams: 06/12/17 21:52 06/12/17 21:52 Lab Results 06/12/17 06/12/17 Range/Units 21:52 21:52 WBC 11.3 H (4.3-11.1) K/mcL RBC 4.18 L (4.19-5.50) M/mcL Hgb 13.9 (12.9-16.9) g/dL Hct 39.9 (37.5-50.1) % MCV 95.5 (83.0-100.0) fL MCH 33.3 (28.0-33.3) pg MCHC 34.8 (31.6-35.5) g/dL RDW 12.2 (11.5-14.5) % Plt Count 185 (140-400) K/mcL MPV 8.8 L (9.4-12.4) fL Immature Gran % 0.4 (0-4) % Seg Neutrophils % 83.6 % Lymphocytes % 9.2 % Monocytes % 6.5 % Eosinophils % 0.1 % Basophils % 0.2 % Neutrophils # 9.5 H (1.6-8.9) K/mcL Lymphocytes # 1.0 (0.6-4.6) K/mcL Monocytes # 0.7 (0.0-1.3) K/mcL Eosinophils # 0.0 (0.0-0.6) K/mcL Basophils # 0.0 (0.0-0.2) K/mcL Sodium 140 (136-145) mEq/L Potassium 4.1 (3.5-5.1) mEq/L Chloride 107 (98-107) mEq/L Carbon Dioxide 21 L (23-29) mEq/L BUN 14 (8-23) mg/dL Creatinine 1.10 (0.70-1.30) mg/dL Est GFR ( Amer) > 60 (> 60) Est GFR (Non-Af Amer) > 60 (> 60) BUN/Creatinine Ratio 13 (6-26) Glucose 106 H (70-105) mg/dL Calculated Osmolality 291 (280-300) Calcium 8.9 (8.6-10.3) mg/dL Total Bilirubin 0.9 (0.3-1.0) mg/dL AST 14 (13-39) Units/L ALT 12 (7-52) Units/L Alkaline Phosphatase 59 (34-104) Units/L Troponin I < 0.03 (< 0.04) ng/mL Serum Total Protein 6.7 (6.4-8.9) g/dL Albumin 4.0 (3.5-5.7) g/dL Globulin 2.7 (2.4-3.5) g/dL Albumin/Globulin Ratio 1.5 (1.1-2.2) Attestation Statement - Attestation Attestation: I, Kenney Franklin, examined this patient and my medical decision-making was reviewed with the HEALTHCARE MARKETER/PA/Advanced Practice Nurse/Resident Physician. I agree with the documented findings, disposition and treatment plan as described except to the extent set forth below. 76-year-old male presents emergency Department with abdominal pain. Patient states she has had multiple episodes of vomiting. After one episode of vomiting he tried to stand quickly and then syncopized. Patient states the abdominal pain feels similar to his previous small bowel obstruction. On CT of the abdomen pelvis he has a small bowel obstruction and will be admitted to hospitalist for further care and evaluation. We spoke with the surgeon, Dr. Park who will see the patient in the a.m. and agreed with plan for admission. We will not place NG tube at this time because the patient has not vomited while he is in the emergency department and is comfortable.
--- NOTE | 2017-06-13 02:15 | Internal Med History&Physical ---
Date of Encounter: 06/13/17 Time of Encounter: 02:07 Assessment and Plan (1) Small bowel obstruction Current visit: Yes Status: Acute I will start IV hydration with isotonic fluid Continue antiemetics Surgery was consulted and will evaluate the patient in the morning Monitor electrolytes and replace when indicated (2) Essential hypertension Current visit: No Status: Chronic We will continue home meds and start the patient on when necessary antihypertensive for systolic blood pressure above 180 and diastolic blood pressure above 110 (3) DVT prophylaxis Current visit: Yes Status: Acute We will place a [facility] Internal Medicine - H&P: HPI Chief complaint: Abdominal pain History of present illness: Mr. Sarmiento is a 76 year old male with past medical history of hypertension who presented to the ER complaining of pre-syncopal episode while sitting on the toilet when he felt that is going to vomit. The patient is complaining of several episode of diarrhea that started yesterday, then he start feeling nauseated today and he had several episode of vomiting. He had similar encounters in the past where was diagnosed and admitted for small bowel obstruction. On CT of the abdomen pelvis he has a small bowel obstruction. ER staff made a decision not to place NG tube at this time stating that this because because the patient has not vomited while he is in the emergency department and is comfortable. Surgery were consulted and they will evaluate the am. Past Med Surg Social Fam HX - Past Medical History Medical history: arthritis, hypertension, other Psychiatric history: no psych history - Past Surgical History Surgical History: cholecystectomy, herniorrhaphy - Social History Smoking Status: Former smoker Smokeless Tobacco Status: No Alcohol use: occasionally Drug use: none - Family History Father Hx Family Cardiac Disorders: Yes (CHF) Internal Medicine - H&P: Meds Dextran 70/Hypromellose [Artificial Tears Eye Drops] 1 drop BOTH EYES DAILY [History] Lisinopril [Zestril] 20 mg PO DAILY 10/11/16 [History] Ubidecarenone [Coq10] 100 mg PO DAILY 10/11/16 [History] Vit C/Vit E/Lutein/Min/[place]-3 [Ocuvite Softgel] 1 cap PO DAILY 10/11/16 [ History] Dicyclomine [Bentyl] 10 mg PO QID #20 capsule 10/25/16 [Rx] 3 Allergy/AdvReac Type Severity Reaction Status Date / Time azithromycin Allergy See Verified 10/10/16 23:39 Comments All Systems PM: A 10-system review of systems was performed and is negative for pertinent findings except as documented above in the HPI. - Constitutional Vitals: Temp Pulse Resp BP Pulse Ox 99.3 F 81 16 149/82 94 06/13/17 01:08 06/13/17 01:08 06/13/17 01:08 06/13/17 01:08 06/13/17 01:08 Internal Med - H&P Results - Labs CBC & Chem 7: 06/12/17 21:52 06/12/17 21:52
[2017-06-13] MEDS ORDERED: Naloxone 0.4 MG/ML INJ IVP PRN (02:38)
[2017-06-13] MEDS ORDERED: *HR* FentaNYL (PF) 100 MCG/2 ML VIAL IVP ONE (03:39)
[2017-06-13] MEDS: 0.9 % Sodium Chloride 1,000 ML IVC SCH ×2 (03:59→13:18)
[2017-06-13 04:54] LABS: Basophils % 0.1 %; Hemoglobin 13.3 g/dL (12.9-16.9); Immature Granulocytes % 0.3 % (0-4); Lymphocytes # 1.3 K/mcL (0.6-4.6); Lymphocytes % 10.9 %; Mean Corpuscular Volume 94.3 fL (83.0-100.0); Monocytes # 0.6 K/mcL (0.0-1.3); Monocytes % 5.6 %; Neutrophils # 9.5 K/mcL (1.6-8.9); Platelet Count 184 K/mcL (140-400); Red Blood Count 4.03 M/mcL (4.19-5.50); Red Cell Distribution Width 12.2 % (11.5-14.5); Segmented Neutrophils % 83.1 %
[2017-06-13 05:15] LABS: Alanine Aminotransferase 12 Units/L (7-52); Albumin 3.9 g/dL (3.5-5.7); Albumin/Globulin Ratio 1.6 (1.1-2.2); Alkaline Phosphatase 56 Units/L (34-104); Aspartate Amino Transferase 14 Units/L (13-39); BUN/Creatinine Ratio 16 (6-26); Bilirubin,Total 0.9 mg/dL (0.3-1.0); Blood Urea Nitrogen 17 mg/dL (8-23); Calcium 8.7 mg/dL (8.6-10.3); Carbon Dioxide 18 mEq/L (23-29); Chloride 109 mEq/L (98-107); Globulin 2.5 g/dL (2.4-3.5); Glucose 94 mg/dL (70-105); Osmolality,Calculated 293 (280-300); Phosphorous 3.5 mg/dL (2.7-4.5); Sodium 141 mEq/L (136-145); Total Protein 6.4 g/dL (6.4-8.9); eGFR For African Americans > 60 (> 60); eGFR For Non-African Americans > 60 (> 60)
--- NOTE | 2017-06-13 08:53 | General Surgery Consult Note ---
<Nadege Garza - Last Filed: 06/13/17 11:09> Date of Encounter: 06/13/17 Time of Encounter: 08:49 Assessment and Plan (1) Small bowel obstruction Current Visit: Yes Status: Acute CT of abdomen and pelvis on 06/12/2017 shows small bowel obstruction with no evidence of necrotic bowel at this time. The stomach is distended. There are multiple distended loops of small bowel with multiple air fluid levels. There appears to be a transition point in the right lower quadrant. Plan: NPO at this time Continue IVF Recommend placing NG tube today-Patient refused NG tube at this time. Please see COMPOSING ROOM SUPERVISOR event note for details. Supportive care and pain control continue to monitor the patient closely. History of Present Illness Reason for consult: other (Small bowel obstruction) History of present illness: Mr. Sarmiento is a 76 year old male with past medical history of hypertension and four small bowel obstructions in the past presented to the ER last night complaining of epigastric pain and pre-syncopal episode while sitting on the toilet. Surgical history includes only laproscopic cholecystectomy. He denies any history of cancer or radiation. On CT of the abdomen and pelvis in the emergency department, the report shows a small bowel obstruction. Surgery was consulted for recommendations. The patient admits associated nausea and diarrhea that started on Monday night and worsen on Monday. He also admits epigastric pain that he describes as constant, non-radiating pain that feels like "a lot of pressure". He states that burping improves the pain but has not notice anything that worsens the pain. He admits it feels like his previous small bowel obstructions that resolved with fluids and no surgical intervention. The patient states that his abdominal pain has improved today. He denies any flatus or bowel movements since his arrival to the hospital. He currently denies any nausea, vomiting, and any weaknesses. He admits discomfort in the epigastric region but no pain. He denies any recent sick contacts, recent travel, and any recent trauma. He denies any fever, headaches , vision changes, near syncope, chest pain, shortness of breath, difficulty breathing, blood in his stool, diarrhea, and any urinary symptoms. The patient has no other concerns at this time. Past Med Surg Social Fam HX - Past Medical History Medical history: arthritis, hypertension, other Psychiatric history: no psych history - Past Surgical History Surgical History: cholecystectomy, herniorrhaphy - Social History Smoking Status: Former smoker Smokeless Tobacco Status: No Alcohol use: occasionally Drug use: none - Family History Father Hx Family Cardiac Disorders: Yes (CHF) Medications and Allergies Dextran 70/Hypromellose [Artificial Tears Eye Drops] 1 drop BOTH EYES DAILY [History] Ubidecarenone [Coq10] 100 mg PO DAILY 10/11/16 [History] Vit C/Vit E/[place]in/Min/[place]-3 [Ocuvite Softgel] 1 cap PO DAILY 10/11/16 [ History] Acetaminophen [Tylenol] 500 mg PO HS PRN 06/13/17 [History] Ibuprofen [Advil] 200 - 400 mg PO HS PRN 06/13/17 [History] Lisinopril [Zestril] 10 mg PO DAILY 06/13/17 [History] [place]-3/Dha/Epa/Fish Oil [Fish Oil 1,000 mg Softgel] 1 tab PO DAILY 06/13/17 [ History] 3 Allergy/AdvReac Type Severity Reaction Status Date / Time azithromycin Allergy See Verified 06/13/17 07:37 Comments Review of Systems All systems PM: The remainder of the systems were reviewed and are negative - Constitutional as per HPI General Surgery Exam Initial Vital Signs Temp Pulse Resp BP Pulse Ox 98.3 F 90 18 158/67 98 06/12/17 21:05 06/12/17 21:05 06/12/17 21:05 06/12/17 21:05 06/12/17 21:05 - General physical appearance well developed, well nourished, no distress - Eyes PERRL, normal ocular movement - ENT normal mucosa - Neck trachea midline - Respiratory normal expansion, normal respiratory effort, clear to auscultation - Cardiovascular Cardiovascular exam: Present: RRR, no murmurs/rubs/gallops - Abdomen Abdomen general surgery: Present: bowel sounds present, soft, distended (Mildly distended), tender (Mild tenderness to palpation in the epigastric). Absent: guarding, rebound, rigid Abdominal Tenderness: Present: epigastic - Integumentary Integumentary general surgery: Present: warm and dry, no abnormal pigmentation - Neurologic Present: CN 2-12 grossly intact - Psychiatric Psychiatric general surgery: Present: appropriate, oriented to person, oriented to place, oriented to time Exam Initial Vital Signs Temp Pulse Resp BP Pulse Ox 98.3 F 90 18 158/67 98 06/12/17 21:05 06/12/17 21:05 06/12/17 21:05 06/12/17 21:05 06/12/17 21:05 Results - Labs 06/13/17 04:20 06/13/17 04:20 Abnormal lab results WBC 11.5 K/mcL (4.3-11.1) H 06/13/17 04:20 RBC 4.03 M/mcL (4.19-5.50) L 06/13/17 04:20 MPV 9.0 fL (9.4-12.4) L 06/13/17 04:20 Neutrophils # 9.5 K/mcL (1.6-8.9) H 06/13/17 04:20 Chloride 109 mEq/L (98-107) H 06/13/17 04:20 Carbon Dioxide 18 mEq/L (23-29) L 06/13/17 04:20 Diabetes panel 06/13/17 Range/Units 04:20 Sodium 141 (136-145) mEq/L Potassium 4.0 (3.5-5.1) mEq/L Chloride 109 H (98-107) mEq/L Carbon Dioxide 18 L (23-29) mEq/L BUN 17 (8-23) mg/dL Creatinine 1.08 (0.70-1.30) mg/dL Glucose 94 (70-105) mg/dL Calcium 8.7 (8.6-10.3) mg/dL AST 14 (13-39) Units/L ALT 12 (7-52) Units/L Alkaline Phosphatase 56 (34-104) Units/L Albumin 3.9 (3.5-5.7) g/dL Calcium panel 06/13/17 Range/Units 04:20 Calcium 8.7 (8.6-10.3) mg/dL Phosphorus 3.5 (2.7-4.5) mg/dL Albumin 3.9 (3.5-5.7) g/dL Pituitary panel 06/13/17 Range/Units 04:20 Sodium 141 (136-145) mEq/L Potassium 4.0 (3.5-5.1) mEq/L Chloride 109 H (98-107) mEq/L Carbon Dioxide 18 L (23-29) mEq/L BUN 17 (8-23) mg/dL Creatinine 1.08 (0.70-1.30) mg/dL Glucose 94 (70-105) mg/dL Calcium 8.7 (8.6-10.3) mg/dL Adrenal panel 06/13/17 Range/Units 04:20 Sodium 141 (136-145) mEq/L Potassium 4.0 (3.5-5.1) mEq/L Chloride 109 H (98-107) mEq/L Carbon Dioxide 18 L (23-29) mEq/L BUN 17 (8-23) mg/dL Creatinine 1.08 (0.70-1.30) mg/dL Glucose 94 (70-105) mg/dL Calcium 8.7 (8.6-10.3) mg/dL Total Bilirubin 0.9 (0.3-1.0) mg/dL AST 14 (13-39) Units/L ALT 12 (7-52) Units/L Alkaline Phosphatase 56 (34-104) Units/L Albumin 3.9 (3.5-5.7) g/dL All other labs normal. Consult Discharge Plan - Plan [facility]errals: [facility] [Primary Care Provider[facility] - <Suzy Monterroso - Last Filed: 06/13/17 12:11> Date of Encounter: 06/13/17 Assessment and Plan (1) Small bowel obstruction Current Visit: Yes Status: Acute reviewed with patient. he continues to refuses NG and states understanding of the benefits, risks, and recommendations associated. Unfortunately, there is little surgery can offer if the patient is unwilling to follow recommendations. Please see Further recommendations pending Dr. Park attestation below. Review of Systems All systems PM: The remainder of the systems were reviewed and are negative General Surgery Exam Initial Vital Signs Temp Pulse Resp BP Pulse Ox 98.3 F 90 18 158/67 98 06/12/17 21:05 06/12/17 21:05 06/12/17 21:05 06/12/17 21:05 06/12/17 21:05 Exam Initial Vital Signs Temp Pulse Resp BP Pulse Ox 98.3 F 90 18 158/67 98 06/12/17 21:05 06/12/17 21:05 06/12/17 21:05 06/12/17 21:05 06/12/17 21:05 Results - Labs 06/13/17 04:20 06/13/17 04:20 Abnormal lab results WBC 11.5 K/mcL (4.3-11.1) H 06/13/17 04:20 RBC 4.03 M/mcL (4.19-5.50) L 06/13/17 04:20 MPV 9.0 fL (9.4-12.4) L 06/13/17 04:20 Neutrophils # 9.5 K/mcL (1.6-8.9) H 06/13/17 04:20 Chloride 109 mEq/L (98-107) H 06/13/17 04:20 Carbon Dioxide 18 mEq/L (23-29) L 06/13/17 04:20 Diabetes panel 06/13/17 Range/Units 04:20 Sodium 141 (136-145) mEq/L Potassium 4.0 (3.5-5.1) mEq/L Chloride 109 H (98-107) mEq/L Carbon Dioxide 18 L (23-29) mEq/L BUN 17 (8-23) mg/dL Creatinine 1.08 (0.70-1.30) mg/dL Glucose 94 (70-105) mg/dL Calcium 8.7 (8.6-10.3) mg/dL AST 14 (13-39) Units/L ALT 12 (7-52) Units/L Alkaline Phosphatase 56 (34-104) Units/L Albumin 3.9 (3.5-5.7) g/dL Calcium panel 06/13/17 Range/Units 04:20 Calcium 8.7 (8.6-10.3) mg/dL Phosphorus 3.5 (2.7-4.5) mg/dL Albumin 3.9 (3.5-5.7) g/dL Pituitary panel 06/13/17 Range/Units 04:20 Sodium 141 (136-145) mEq/L Potassium 4.0 (3.5-5.1) mEq/L Chloride 109 H (98-107) mEq/L Carbon Dioxide 18 L (23-29) mEq/L BUN 17 (8-23) mg/dL Creatinine 1.08 (0.70-1.30) mg/dL Glucose 94 (70-105) mg/dL Calcium 8.7 (8.6-10.3) mg/dL Adrenal panel 06/13/17 Range/Units 04:20 Sodium 141 (136-145) mEq/L Potassium 4.0 (3.5-5.1) mEq/L Chloride 109 H (98-107) mEq/L Carbon Dioxide 18 L (23-29) mEq/L BUN 17 (8-23) mg/dL Creatinine 1.08 (0.70-1.30) mg/dL Glucose 94 (70-105) mg/dL Calcium 8.7 (8.6-10.3) mg/dL Total Bilirubin 0.9 (0.3-1.0) mg/dL AST 14 (13-39) Units/L ALT 12 (7-52) Units/L Alkaline Phosphatase 56 (34-104) Units/L Albumin 3.9 (3.5-5.7) g/dL All other labs normal. <Mitra Park - Last Filed: 06/13/17 12:26> Date of Encounter: 06/13/17 Assessment and Plan (1) DVT prophylaxis Current Visit: Yes Status: Acute EPCD's ,ambulate (2) Small bowel obstruction Current Visit: Yes Status: Acute patient CT scan shows SBO with transition point already today patient has had a few liquid bms and has passed flatus with them he has no abdominal pain currently, he denies distention and states he can tell he is back on the mend to his old self like during previous admissions for sbo currently continue IVF hydration prn pain control prn antiemetics gi/dvt prophylaxis ok to hold off on ngt as patient appears to be resolving obstruction continue npo currently serial abdominal exams (3) Essential hypertension Current Visit: No Status: Chronic managment per hospitalist History of Present Illness Consult date: 06/13/17 Reason for consult: abdominal pain (SBO) History of present illness: A she is a 76 rolled male who states he has been admitted 3 other times in the past for partial small bowel obstructions. He was having less than 24 hours of abdominal pain and distention. Due to his previous experience with partial small bowel obstruction he presented to the ER. CT scan was done which showed distended small bowel and stomach with fluid and air and a transition point the small bowel. He was having what he describes as dry heaves at home but nothing was coming up. Today he states he has been having a little bit of loose liquid stools when he sits on the toilet and passes gas at that time. He denies being distended any further. He denies any abdominal pain currently. He denies any nausea. Only previous abdominal surgery was a laparoscopic cholecystectomy and a herniorrhaphy as a child. Past Med Surg Social Fam HX - Past Medical History Source: patient Medical history: hypertension, other (history psbo) - Past Surgical History Surgical History: cholecystectomy, herniorrhaphy - Social History Occupational status: retired Current living situation: Home - Independent Review of Systems All systems PM: reviewed and no additional remarkable complaints except as stated All systems PM: The remainder of the systems were reviewed and are negative General Surgery Exam Initial Vital Signs Temp Pulse Resp BP Pulse Ox 98.3 F 90 18 158/67 98 06/12/17 21:05 06/12/17 21:05 06/12/17 21:05 06/12/17 21:05 06/12/17 21:05 - General physical appearance well developed, well nourished, no distress - Eyes PERRL, normal ocular movement - ENT normal mucosa, normocephalic - Neck trachea midline - Respiratory normal expansion, clear to auscultation - Cardiovascular Cardiovascular exam: Present: RRR, no murmurs/rubs/gallops - Abdomen Abdomen general surgery: Present: bowel sounds present, soft, non tender, distended. Absent: guarding, rebound - Integumentary Integumentary general surgery: Present: warm and dry, no abnormal pigmentation - Neurologic Present: CN 2-12 grossly intact - Musculoskeletal Present: normal posture - Psychiatric Psychiatric general surgery: Present: A&Ox3 Exam Initial Vital Signs Temp Pulse Resp BP Pulse Ox 98.3 F 90 18 158/67 98 06/12/17 21:05 06/12/17 21:05 06/12/17 21:05 06/12/17 21:05 06/12/17 21:05 Results - Labs 06/13/17 04:20 06/13/17 04:20 Abnormal lab results WBC 11.5 K/mcL (4.3-11.1) H 06/13/17 04:20 RBC 4.03 M/mcL (4.19-5.50) L 06/13/17 04:20 MPV 9.0 fL (9.4-12.4) L 06/13/17 04:20 Neutrophils # 9.5 K/mcL (1.6-8.9) H 06/13/17 04:20 Chloride 109 mEq/L (98-107) H 06/13/17 04:20 Carbon Dioxide 18 mEq/L (23-29) L 06/13/17 04:20 Diabetes panel 06/13/17 Range/Units 04:20 Sodium 141 (136-145) mEq/L Potassium 4.0 (3.5-5.1) mEq/L Chloride 109 H (98-107) mEq/L Carbon Dioxide 18 L (23-29) mEq/L BUN 17 (8-23) mg/dL Creatinine 1.08 (0.70-1.30) mg/dL Glucose 94 (70-105) mg/dL Calcium 8.7 (8.6-10.3) mg/dL AST 14 (13-39) Units/L ALT 12 (7-52) Units/L Alkaline Phosphatase 56 (34-104) Units/L Albumin 3.9 (3.5-5.7) g/dL Calcium panel 06/13/17 Range/Units 04:20 Calcium 8.7 (8.6-10.3) mg/dL Phosphorus 3.5 (2.7-4.5) mg/dL Albumin 3.9 (3.5-5.7) g/dL Pituitary panel 06/13/17 Range/Units 04:20 Sodium 141 (136-145) mEq/L Potassium 4.0 (3.5-5.1) mEq/L Chloride 109 H (98-107) mEq/L Carbon Dioxide 18 L (23-29) mEq/L BUN 17 (8-23) mg/dL Creatinine 1.08 (0.70-1.30) mg/dL Glucose 94 (70-105) mg/dL Calcium 8.7 (8.6-10.3) mg/dL Adrenal panel 06/13/17 Range/Units 04:20 Sodium 141 (136-145) mEq/L Potassium 4.0 (3.5-5.1) mEq/L Chloride 109 H (98-107) mEq/L Carbon Dioxide 18 L (23-29) mEq/L BUN 17 (8-23) mg/dL Creatinine 1.08 (0.70-1.30) mg/dL Glucose 94 (70-105) mg/dL Calcium 8.7 (8.6-10.3) mg/dL Total Bilirubin 0.9 (0.3-1.0) mg/dL AST 14 (13-39) Units/L ALT 12 (7-52) Units/L Alkaline Phosphatase 56 (34-104) Units/L Albumin 3.9 (3.5-5.7) g/dL All other labs normal. - Imaging CT scan - abdomen: report reviewed, image reviewed CT scan - pelvis: report reviewed, image reviewed - Attending Attestation I examined this patient and my medical decision-making was reviewed with the Resident Physician. I agree with the documented findings, disposition and treatment plan as described except to the extent set forth below. I have personally performed a face to face evaluation on this patient. I have reviewed and agree with the care plan. History and Exam by me shows:
--- NOTE | 2017-06-13 09:32 | Event Note ---
Date of Encounter: 06/13/17 Time of Encounter: 09:24 Called by Dave, bedside RN, re:patient reports having a BM and refused NG. ( See consult for further information). Reviewed with patient his clinical course, imaging results including distended stomach, multiple distended loops of small bowel with multiple air fluid levels , a transition point in the right lower quadrant, sigmoid diverticulosis, consistent with a possible small bowel obstruction. Also reviewed with patient the typical pathophysiology related to a small bowel obstruction, clinical treatment including NG for stomach/bowel decompression and rest, and possible surgical intervention pending. Patient states, " this is the 5th time that I have had one of these in about 5 years and they have never put the tube down. When they give me the IV fluids it makes me have a bowel movement which I already had." I further reviewed with patient that the nature of his bowel movement was reported as all liquid and this is likely coming from the large only as he still has no bowel sounds and remains distended. Reports he has never had an EGD or colonoscopy, changes in bowel habits, black, bloody, or tarry stool prior to this acute episode. The patient is recommended to have NG placed and maintained to LIWS and bowel rest. He currently refuses recommendations, but states, "let me just think on this tube for just a little while and I will let the nurse know." Reviewed with patient the risks/benefits of treatment and refusal of treatment as well as his right to refuse treatment and complications associated. Please see consult note for further information/recommendations.
--- NOTE | 2017-06-13 17:57 | Event Note ---
Date of Encounter: 06/13/17 Time of Encounter: 17:49 (1) Small bowel obstruction recurrent. Reports 4-5 episodes over the last 4 years of small bowel obstruction. No known abdominal surgeries. CT of abdomen and pelvis on 2017 shows small bowel obstruction with no evidence of necrotic bowel. Evaluated by General Surgery who is recommending NG however patient refusing. Denies abdominal pain on my exam, reports small BM, + flatus. Continue IV fluids , pain control, NPO (2) Essential hypertension per hx. Holding home BP medications with SBO. Cont PRN hydralazine (3) DVT prophylaxis SCDs
[2017-06-13] MEDS ORDERED: *HR* FentaNYL (PF) 100 MCG/2 ML VIAL IVP PRN (20:14)
[2017-06-13] MEDS: *HR* FentaNYL (PF) 100 MCG/2 ML VIAL IVP SCH (21:09)
--- NOTE | 2017-06-14 06:40 | Electrocardiograph Report ---
[place] [id number] Test Date: 2017-06-12 Pat Name: Ck Sarmiento Department: 102 Room: 3A44 Gender: M Last Model Department Supervisor: Ekp : 1940 Requested By: Michelle Still Order Number: [id number] Reading MD: Papo Mcintyre MD Measurements Intervals [place] Rate: 86 P: 46 WV: 161 QRS: 7 QRSD: 82 T: 32 QT: 341 QTc: 384 Interpretive Statements SINUS RHYTHM LOW QRS VOLTAGE IN PRECORDIAL LEADS BASELINE ARTIFACT Electronically Signed On 06-14-2017 6:39:15 EDT by Papo Mcintyre MD
[2017-06-14 08:04] LABS: Hematocrit 35.8 % (37.5-50.1); Hemoglobin 12.4 g/dL (12.9-16.9); Mean Corpuscular HGB Conc 34.6 g/dL (31.6-35.5); Mean Corpuscular Hemoglobin 33.1 pg (28.0-33.3); Mean Corpuscular Volume 95.5 fL (83.0-100.0); Mean Platelet Volume 9.1 fL (9.4-12.4); Platelet Count 170 K/mcL (140-400); Red Blood Count 3.75 M/mcL (4.19-5.50); Red Cell Distribution Width 12.3 % (11.5-14.5)
[2017-06-14 08:23] LABS: BUN/Creatinine Ratio 21 (6-26); Blood Urea Nitrogen 21 mg/dL (8-23); Calcium 8.5 mg/dL (8.6-10.3); Carbon Dioxide 20 mEq/L (23-29); Chloride 113 mEq/L (98-107); Glucose 90 mg/dL (70-105); Osmolality,Calculated 297 (280-300); Sodium 142 mEq/L (136-145); eGFR For African Americans > 60 (> 60); eGFR For Non-African Americans > 60 (> 60)
--- NOTE | 2017-06-14 11:17 | General Surgery Progress Note ---
<Wayne,Simona Bala - Last Filed: 06/14/17 11:13> Date of Encounter: 06/14/17 Time of Encounter: 11:15 - Assessment and Plan (1) Partial small bowel obstruction Current Visit: No Status: Acute Resolved Start clear liquid diet Advance diet to regular as tolerated May discharge to home from a surgery standpoint when tolerating diet Surgery will sign off at this time. Thank you for allowing us to participate in this patients care. Please call with any further questions or concerns. Subjective Patient reports: no new complaints, feels better, voiding w/o difficulty, flatus , bowel movement, afebrile Objective Vital Signs - Last 8 Hours Temp Pulse Resp BP Pulse Ox 06/14/17 07:51 97.8 F 64 16 138/69 96 06/14/17 04:14 97.9 F 74 14 139/72 96 Intake and Output 06/13/17 06/14/17 06/14/17 23:59 07:59 15:59 Intake Total 0 / 0 Output Total 0 / 0 Balance 0 / 0 Intake: Oral 0 / 0 Output: Urine 0 / 0 Other: Meal NPO Blood Glucose* 80 - General physical appearance well developed, well nourished, no distress, no pain - Eyes normal ocular movement - ENT normal mucosa, atraumatic, normocephalic - Neck Neck exam: trachea midline - Respiratory normal respiratory effort, clear to auscultation - Cardiovascular Cardiovascular exam: Present: RRR - Abdomen Abdomen: Present: bowel sounds present, soft, non tender - Neurologic CN 2-12 grossly intact - Musculoskeletal normal gait, normal posture - Psychiatric oriented to time, oriented to person, oriented to place, speech is normal, memory intact - Labs 06/14/17 07:23 06/14/17 07:23 Diabetes panel 06/14/17 Range/Units 07:23 Sodium 142 (136-145) mEq/L Potassium 4.0 (3.5-5.1) mEq/L Chloride 113 H (98-107) mEq/L Carbon Dioxide 20 L (23-29) mEq/L BUN 21 (8-23) mg/dL Creatinine 0.98 (0.70-1.30) mg/dL Glucose 90 (70-105) mg/dL Calcium 8.5 L (8.6-10.3) mg/dL Calcium panel 06/14/17 Range/Units 07:23 Calcium 8.5 L (8.6-10.3) mg/dL Pituitary panel 06/14/17 Range/Units 07:23 Sodium 142 (136-145) mEq/L Potassium 4.0 (3.5-5.1) mEq/L Chloride 113 H (98-107) mEq/L Carbon Dioxide 20 L (23-29) mEq/L BUN 21 (8-23) mg/dL Creatinine 0.98 (0.70-1.30) mg/dL Glucose 90 (70-105) mg/dL Calcium 8.5 L (8.6-10.3) mg/dL Adrenal panel 06/14/17 Range/Units 07:23 Sodium 142 (136-145) mEq/L Potassium 4.0 (3.5-5.1) mEq/L Chloride 113 H (98-107) mEq/L Carbon Dioxide 20 L (23-29) mEq/L BUN 21 (8-23) mg/dL Creatinine 0.98 (0.70-1.30) mg/dL Glucose 90 (70-105) mg/dL Calcium 8.5 L (8.6-10.3) mg/dL Consult Discharge Plan - Plan Referrals: [facility] [Primary Care Provider] - - Attending Attestation For this encounter, I have reviewed the NEUROSURGERY RESEARCH DIRECTOR or PA documentation, treatment plan, and medical decision making; and I have had face to face time with this patient. <Mitra Park - Last Filed: 06/14/17 16:52> Date of Encounter: 06/14/17 - Assessment and Plan (1) DVT prophylaxis Current Visit: Yes Status: Acute (2) Essential hypertension Current Visit: No Status: Chronic (3) Small bowel obstruction due to adhesions Current Visit: Yes Status: Acute patients sbo likely secondary to adhesions, advance diet as tolerate ok to dc when medically appropriate and tolerating diet no need to follow up with surgery as outpatient Objective Vital Signs - Last 8 Hours Temp Pulse Resp BP Pulse Ox 06/14/17 15:24 97.9 F 68 15 138/72 98 Intake and Output 06/14/17 06/14/17 06/14/17 07:59 15:59 23:59 Intake Total 0 / 0 560 / 560 Output Total 0 / 0 Balance 0 / 0 560 / 560 Intake: Oral 0 / 0 560 / 560 Output: Urine 0 / 0 Other: Meal Clears - Labs 06/14/17 07:23 06/14/17 07:23 Diabetes panel 06/14/17 Range/Units 07:23 Sodium 142 (136-145) mEq/L Potassium 4.0 (3.5-5.1) mEq/L Chloride 113 H (98-107) mEq/L Carbon Dioxide 20 L (23-29) mEq/L BUN 21 (8-23) mg/dL Creatinine 0.98 (0.70-1.30) mg/dL Glucose 90 (70-105) mg/dL Calcium 8.5 L (8.6-10.3) mg/dL Calcium panel 06/14/17 Range/Units 07:23 Calcium 8.5 L (8.6-10.3) mg/dL Pituitary panel 06/14/17 Range/Units 07:23 Sodium 142 (136-145) mEq/L Potassium 4.0 (3.5-5.1) mEq/L Chloride 113 H (98-107) mEq/L Carbon Dioxide 20 L (23-29) mEq/L BUN 21 (8-23) mg/dL Creatinine 0.98 (0.70-1.30) mg/dL Glucose 90 (70-105) mg/dL Calcium 8.5 L (8.6-10.3) mg/dL Adrenal panel 06/14/17 Range/Units 07:23 Sodium 142 (136-145) mEq/L Potassium 4.0 (3.5-5.1) mEq/L Chloride 113 H (98-107) mEq/L Carbon Dioxide 20 L (23-29) mEq/L BUN 21 (8-23) mg/dL Creatinine 0.98 (0.70-1.30) mg/dL Glucose 90 (70-105) mg/dL Calcium 8.5 L (8.6-10.3) mg/dL
--- NOTE | 2017-06-14 14:41 | Internal Med Progress Note ---
Date of Encounter: 06/14/17 Time of Encounter: 14:43 - Assessment and plan (1) Small bowel obstruction Current Visit: Yes Status: Acute Assessment and plan: recurrent. Reports 4-5 episodes over the last 4 years of small bowel obstruction. No known abdominal surgeries. CT of abdomen and pelvis on 2017 shows small bowel obstruction with no evidence of necrotic bowel. Evaluated by General Surgery who is recommending NG however patient refused. Cont to deny abdominal pain, reports small BM, + flatus. Advance diet as tolerated, encouraged ambulation. General surgery followed. (2) Essential hypertension Current Visit: No Status: Chronic Assessment and plan: per hx. BP controlled. Cont home BP medication. Monitor BP and titrate PRN (3) DVT prophylaxis Current Visit: Yes Status: Acute Assessment and plan: heparin - Subjective Interval history: Seen and examined at bedside. He feels better, no abdominal pain. Passing gas and having liquid stools. Tolerated clear liquid diet this morning. - Constitutional Vitals: Temp Pulse Resp BP Pulse Ox 97.8 F 64 16 138/69 96 06/14/17 07:51 06/14/17 07:51 06/14/17 07:51 06/14/17 07:51 06/14/17 07:51 General appearance: Present: A&O X 3, morbidly obese - Head Head exam: Present: atraumatic, normocephalic - Eye Eye exam: Present: PERRL, conjuntiva pink, sclera anicteric Pupils: Present: PERRL - Neck Neck exam general surgery: Present: supple, trachea midline. Absent: lymphadenopathy - Respiratory Respiratory exam: Present: CTAB. Absent: accessory muscle use, rales, rhonchi, wheezes - Cardiovascular Cardiovascular exam: Present: RRR, +S1, +S2. Absent: diastolic murmur, gallop, rubs, systolic murmur - GI/Abdominal GI/Abdominal exam: Present: normal bowel sounds, soft, no peritoneal signs. Absent: distended, tenderness - Extremities Exam Extremities exam: Present: warm, radial pulses palpable and symmetrical. Absent : calf tenderness, cyanotic, pedal edema - Neurological Exam Neurological exam: Present: CN II-XII intact, oriented X3, no focal deficits. Absent: pronater drift, facial droop, speech deficit - Skin Skin exam: Present: dry, intact Internal Medicine: Result - Labs CBC & Chem 7: 06/14/17 07:23 06/14/17 07:23 Labs: Short CBC 06/14/17 Range/Units 07:23 WBC 9.5 (4.3-11.1) K/mcL Hgb 12.4 L (12.9-16.9) g/dL Hct 35.8 L (37.5-50.1) % Plt Count 170 (140-400) K/mcL BMP 06/14/17 07:23 Sodium 142 Potassium 4.0 Chloride 113 H Carbon Dioxide 20 L BUN 21 Creatinine 0.98 Glucose 90 Calcium 8.5 L Consult Discharge Plan - Plan Referrals: [facility] [Primary Care Provider] -
[2017-06-14] MEDS: *HR* Heparin 5,000 UNIT/ML VIAL SQ SCH (21:53)
[2017-06-15] MEDS: *HR* Heparin 5,000 UNIT/ML VIAL SQ SCH (05:22)
[2017-06-15 06:32] LABS: BUN/Creatinine Ratio 14 (6-26); Blood Urea Nitrogen 13 mg/dL (8-23); Calcium 8.4 mg/dL (8.6-10.3); Carbon Dioxide 23 mEq/L (23-29); Chloride 111 mEq/L (98-107); Glucose 94 mg/dL (70-105); Osmolality,Calculated 292 (280-300); Sodium 141 mEq/L (136-145); eGFR For African Americans > 60 (> 60); eGFR For Non-African Americans > 60 (> 60)
[2017-06-15] MEDS ORDERED: Lisinopril 20 MG TABLET PO SCH (09:00)
[2017-06-15 10:48] VITALS: BP 180/70
--- NOTE | 2017-06-15 11:30 | Discharge Summary ---
- NOTES TO OUTPATIENT PROVIDER Notes to Outpatient Provider: Admitted with recurrent small bowel obstruction. Recommend gastroenterology referral for EGD/colonoscopy Date of Encounter: 06/15/17 Time of Encounter: 11:32 - Discharge Diagnosis (1) Small bowel obstruction Priority: Primary Status: Acute Comments: recurrent. Reports 4-5 episodes over the last 4 years of small bowel obstruction. No known abdominal surgeries. CT of abdomen and pelvis on 2017 shows small bowel obstruction with no evidence of necrotic bowel. Evaluated by General Surgery who is recommended NG however patient refused. Symptoms resolved with conservative management. No abdominal pain, tolerating regular diet and having bowel movements at time of discharge. Recommend gastroenterology referral for outpatient EGD/colonoscopy. General surgery followed. (2) Essential hypertension Priority: Primary Status: Chronic Comments: per hx. BP controlled. Cont home BP medication. Hospital course: Mr. Sarmiento is a 76 year old male with PMH hypertension who presented to [facility] on 06/13/2017 with complaint abdominal pain. He was found to have a small bowel obstruction and was admitted for further workup and treatment. Please see assessment and plan for further details/hospital course. Discharge discussed with: patient, family - Time Spent with Patient Total time spent providing and/or coordinating discharge services: - Discharge Medications Prescriptions: Polyethylene Glycol 3350 [MiraLAX] 17 gm PO DAILY #30 powd.pack Home Medications: Dextran 70/Hypromellose [Artificial Tears Eye Drops] 1 drop BOTH EYES DAILY [History] Ubidecarenone [Coq10] 100 mg PO DAILY 10/11/16 [History] Vit C/Vit E/Lutein/Min/[place]-3 [Ocuvite Softgel] 1 cap PO DAILY 10/11/16 [ History] Acetaminophen [Tylenol] 500 mg PO HS PRN 06/13/17 [History] Ibuprofen [Advil] 200 - 400 mg PO HS PRN 06/13/17 [History] Lisinopril [Zestril] 10 mg PO DAILY 06/13/17 [History] [place]-3/Dha/Epa/Fish Oil [Fish Oil 1,000 mg Softgel] 1 tab PO DAILY 06/13/17 [ History] Polyethylene Glycol 3350 [MiraLAX] 17 gm PO DAILY #30 powd.pack 06/15/17 [Rx] Allergies/Adverse Reactions: 3 Allergy/AdvReac Type Severity Reaction Status Date / Time azithromycin Allergy See Verified 06/13/17 07:37 Comments Date of admission: 06/13/17 21:07 [facility] care [facility] Discharging clinician: Jamila Eagle Anticipated date of discharge: 06/15/17 - Constitutional Vitals: Temp Pulse Resp BP Pulse Ox 98.3 F 73 16 180/70 99 06/15/17 10:43 06/15/17 10:43 06/15/17 10:43 06/15/17 10:43 06/15/17 10:43 General appearance: Present: A&O X 3, morbidly obese - Head Head exam: Present: atraumatic, normocephalic - Eye Eye exam: Present: PERRL, conjuntiva pink, sclera anicteric Pupils: Present: PERRL - Neck Neck exam general surgery: Present: supple, trachea midline. Absent: lymphadenopathy - Respiratory Respiratory exam: Present: CTAB. Absent: accessory muscle use, rales, rhonchi, wheezes - Cardiovascular Cardiovascular exam: Present: RRR, +S1, +S2. Absent: diastolic murmur, gallop, rubs, systolic murmur - GI/Abdominal GI/Abdominal exam: Present: normal bowel sounds, soft, no peritoneal signs. Absent: distended, tenderness - Extremities Exam Extremities exam: Present: warm, radial pulses palpable and symmetrical. Absent : calf tenderness, cyanotic, pedal edema - Neurological Exam Neurological exam: Present: CN II-XII intact, oriented X3, no focal deficits. Absent: pronater drift, facial droop, speech deficit - Skin Skin exam: Present: dry, intact - Patient Status Disposition: Home, Self-Care Condition: Good Functional capacity at discharge: independent ambulation Overall status at discharge: patient is back to baseline - Discharge Instructions Instructions: Bowel Obstruction (DC), Colonoscopy (DC), Upper Gastrointestinal Endoscopy (DC) [facility]: [facility] Care Provider[facility] - (Please call for follow-up appointment within 1-2 weeks. Please talk with your primary care doctor about a gastroenterology referral for outpatient EGD/colonoscopy.) Additional Instructions: What is a small bowel obstruction? A small bowel obstruction (SBO) is a condition in which the small intestine gets blocked. "Small bowel" is another term for the small intestine. In an SBO, air, fluid, and food get stuck in the intestine. They can't move through the small intestine the way they normally would. The intestine can be partly or completely blocked in an SBO. A complete block can lead to serious problems. That's because: -The intestine can get swollen from the trapped air, fluid, and food. This swelling can make the intestine less able to absorb fluid, which can lead to dehydration and kidney failure. -If the intestine wall tears, the fluid in the intestine can leak out. This can cause a belly infection. -When the intestine is blocked, the blood vessels that bring oxygen to the intestine can get blocked, too. Without blood, parts of the intestine can . In some cases, the small intestine looks blocked on tests even when it isn't. This could be from either intestinal "ileus" or "pseudo-obstruction." This article is only about real obstruction. What causes an SBO? The most common causes of an SBO are: -Past surgery in the belly After surgery, scar tissue can form in the belly and press on the intestine. -Hernias A hernia is an opening in the muscle or tissue that covers the muscle. Part of the intestine can get trapped and stuck in a hernia. -Twisting of the intestines -Tumor Tumors (cancerous and noncancerous) can grow inside or outside the intestine and block it. What are the symptoms of an SBO? Symptoms depend on where your intestine is blocked and how blocked it is. The most common symptoms are: -Nausea and vomiting -Belly pain -Belly swelling and bloating -Not being able to have a bowel movement or pass gas Will I need tests? Yes. Your doctor will ask about your symptoms and do an exam. If your doctor thinks that you have an SBO, he or she will do imaging tests of your belly and chest and blood tests. The imaging tests can include an X-ray, CT scan, or a series of X-rays called a "GI series." For the CT scan and GI series, you will drink a liquid called "contrast" beforehand. The contrast will show up on the CT scan or X-rays. It can help the doctor see what's causing the blockage. How is an SBO treated? Treatment depends on the blockage and your symptoms. If you have an SBO, you will be treated in the hospital. Your doctor will give you fluids and medicines. You will also get a nasogastric tube. This is a thin tube that goes in your nose, down your esophagus, and into your stomach. The tube can suck up the fluid and air in your stomach. This will make your stomach feel better and help keep you from vomiting. Many people will not need any other treatment. That's because, many times, an SBO can get better on its own. This is often the case for a partial SBO, or an SBO that has happened after earlier belly surgery. Some people will need surgery. You are likely to need surgery if you have a hernia, you have never had surgery before, you have a complete blockage, or your SBO does not get better with fluids and the nasogastric tube. During surgery, your doctor will remove the blockage and any unhealthy parts of your small intestine. After your doctor removes the unhealthy intestine, he or she will usually reconnect your intestines so they work normally. - Diet and Activity Activity: increase activity as tolerated Diet: advance to your usual diet
== END 2017-06-15 12:11 | disposition home or self-care (01) | DRG 390 ==
LOC: EMEROO 21:04 → 2SOUTHHOLD 21:04 → 3ANU 06-13 19:26
PROVIDERS: ADMIT Internal Medicine Nephrology; ATTEND Internal Medicine Nephrology

== ENCOUNTER 2018-11-23 08:38 | Inpatient (IN) ==
[2018-11-23] MEDS ORDERED: CeFAZolin Syr 2,000MG/20 ML 2,000 MG/20 ML SYRINGE IVPB ONE (09:02)
[2018-11-23] MEDS ORDERED: Ringers Solution, Lactated 1,000 ML IVC SCH ×2 (09:15→09:45)
--- NOTE | 2018-11-23 09:26 | Anesthesia Evaluation PreOp ---
Date of Encounter: 11/23/18 Time of Encounter: 09:24 - Past History Planned Operation: open jejunnostomy tube Cardiac History: HTN Pulmonary History: Former smoker (quit > 20yrs ago) RETAIL DEPARTMENT MANAGER History: Other (macular degeneration) Other Medical History: Other (esophageal cancer, distal third esophagus) Anesthesia History: No Prior Anesthetic Complications, Past Anesthesia (cat aracts, hernia, kim) Alcohol Use: occasionally Drug use: none Medications and Allergies Lisinopril [Zestril] 10 mg PO DAILY 06/13/17 [History] Glycopyrrolate [Robinul] 1 mg PO BID 11/23/18 [History] LORazepam [Lorazepam] 2 mg PO HS PRN 11/23/18 [History] Omeprazole 20 mg PO DAILY 11/23/18 [History] Allergy/AdvReac Type Severity Reaction Status Date / Time azithromycin Allergy See Verified 06/13/17 07:37 Comments - Meds/Allergy Pre-op Review Medications Reviewed: Yes Allergies Reviewed: Yes Beta Blockers on Current Med List: No Anesthesia Exam Weight: 69kg - HEENT Pupil (Motor): EOMI Mallampati: II Teeth: Missing Oral Opening: Less than or equal to 3 - RETAIL DEPARTMENT MANAGER LOC: Oriented RETAIL DEPARTMENT MANAGER Motor: Normal RUE, Normal LUE, Normal RLE, Normal LLE, Normal Face RETAIL DEPARTMENT MANAGER Sensory: Normal: RUE, LUE, RLE, LLE, Face - Cardiac Rhythm: Regular Murmur: None - Pulmonary Breath Sounds: bilateral Clear Respiratory Effort: Symmetrical Anesthesia Assess/Plan ASA Score: 3 Level of consciousness: Cooperative, Oriented Anesthetic Plan: General Monitoring Plan: Standard Monitors Recovery Plan: PACU (agrees to GA)
[2018-11-23] MEDS ORDERED: *HR* Promethazine 25 MG/ML VIAL IVP PRN (09:31)
[2018-11-23] MEDS ORDERED: Lidocaine -MPF 2% 2 ML VIAL ONE (09:54)
[2018-11-23] MEDS ORDERED: *HR* FentaNYL (PF) 100 MCG/2 ML VIAL ONE (09:54)
[2018-11-23] MEDS ORDERED: *HR* Rocuronium Bromide 50 MG/5 ML VIAL ONE (09:55)
[2018-11-23] MEDS ORDERED: *HR* Propofol 200 MG/20 ML VIAL IVP ONE (09:56)
[2018-11-23] MEDS ORDERED: Ondansetron 4 MG/2 ML VIAL ONE (09:59)
[2018-11-23] MEDS ORDERED: Dexamethasone 4 MG/ML VIAL ONE (10:00)
[2018-11-23] MEDS ORDERED: *HR* Succinylcholine 200 MG/10 ML VIAL IVP ONE (10:00)
--- NOTE | 2018-11-23 10:00 | History & Physical Report ---
Date of Encounter: 11/23/18 Time of Encounter: 09:55 24 Hour HP Update - Instructions Instructions: If the History and Physical is less than 30 days old and was completed prior to A.M. admission and or procedure and has NOT been updated on calendar day of procedure please complete this update prior to performing procedure. - Update Patient reports changes in Medical Condition: No Changes in examination, assessment, or condition: No Changes in Medication: No Preop tests/diagnostics Reviewed: Yes Surgery Remains Indicated: Yes Consent for Planned Operative Procedure(s) Verified: Yes - Pre-Operative Checklist Preoperative Checklist Indicated: Yes Prophylactic Antibiotic Ordered: Yes Home Medications Include Beta Vamsi: No Is VTE Prophylaxis Indicated?: Yes
[2018-11-23] MEDS ORDERED: *HR* PHENYLEPHRINE 1,000 MCG/10 ML SYRINGE IVP ONE (10:39)
[2018-11-23] MEDS ORDERED: Bupivacaine/EPI 1:200k 0.5%PF 10 ML VIAL ONE (11:21)
--- NOTE | 2018-11-23 11:38 | Operative Note ---
Date of procedure: 11/23/18 Pre-op diagnosis: Esophageal cancer Post-op diagnosis: same Procedure: Open jejunostomy tube. Enteroenterostomy Anesthesia: DONNIE Surgeon: Jai Hoyos Was there an psychologist research assistant present: No Estimated blood loss (cc): 10 Specimen: None Condition: stable Disposition: PACU Procedure in Detail: After informed consent the patient is taking major operating suite placed supine position given adequate general endotracheal anesthesia. The abdomen is prepped and draped in sterile fashion utilizing ChloraPrep standard draping techniques. Timeout was taken and the patient was identified. I made a vertical midline incision around the umbilicus and entered the abdomen. I identified the proximal jejunum. Since I placed a box stitch and opened and the jejunum. I placed a 20-Turkmen rigid latex jejunostomy feeding tube with the tip cut off into the enterotomy and tied the box stitch. I then made a Witzel tunnel with 3 stitches of 2-0 silk. This gave an excellent technical result. There was some compression of the lumen. I decided to perform enteroenterostomy. I identified an area just past the ligament of Treitz and an area on the jejunum distal to the feeding tube. A irlb-gz-pyha anastomosis was performed using 2-0 silk on the seromuscular layer and running 3-0 chromic on the mucosal layer. This given excellent technical result and should alleviate any transient obstructive symptoms. The jejunostomy tube was brought out through the abdominal wall and secured with 2 buttons stitches using 0 silk. Blood loss was 10 mL. Midline was closed with looped 0 PDS. Skin was closed with interrupted Vicryl and skin clips. He tolerated the procedure well.
[2018-11-23] MEDS: *HR* HYDROmorphone (PF) 1 MG/ML SYRINGE IVP PRN ×2 (11:51→11:59)
[2018-11-23] MEDS ORDERED: Ondansetron 4 MG/2 ML VIAL IVP PRN (12:31)
[2018-11-23] MEDS ORDERED: *HR* Metoprolol 5 MG/5 ML VIAL IVP PRN (12:31)
--- NOTE | 2018-11-23 13:37 | Physician Discharge Referral ---
Home Health/Hosp Referral Info Transfer to: Home Health Attending Provider: Dr. Jai Hoyos Provider in Charge Post Discharge: PCP - Diagnosis (1) Esophageal cancer Priority: Primary Status: Chronic - Respiratory Orders Smoking Cessation: Smoking cessation has been advised. For more information, call the [place] Tobacco Quit Line at 1-121-TLNT-NOW. - Dressing/Wound Care Site: J-tube site care: Daily dressing changes with split gauze. - Diet/Nutrition Diet/Nutrition: List: Continuous J-tube feedings per investment counselor recommendations 1) Do not aspirate for residuals. 2) All medications must be crushed and dissolved until they are liquid or use liquid medications only. Flush with 50 ML's water after every medication administration. 3) further flesh amounts her nutrition recommendations/protocol. 4) J-tube feedings to begin 11/24/2018. Continuous at 25 ml/hr. Formula per dietitian recommendations. Intervention: Tube Feeding to start 11/24/18 per surgery team: Tube Feeding via J-tube: Start Osmolite 1.2 @ 25mL/hr and advance by 10mls Q6H to a goal rate of 80mL/hr -- Per 24Hrs Provides: 2304kcal, 1574mL Free Water, 106g protein Free Water Flushes of 250mL 3x/day, for example @ 0800, 1300, 1800 -- Provides an additional 750mL Free Water per 24Hrs - Activity Activity Orders: Up ad elias - Services Needed Following services are medically necessary services: Care Home Care Orders: Continue home care as per previous orders. Start J-tube feedings as above. - Transfer Medications Home Medications: Lisinopril [Zestril] 10 mg PO DAILY 06/13/17 [History] Glycopyrrolate [Robinul] 1 mg PO BID 11/23/18 [History] LORazepam [Lorazepam] 2 mg PO HS PRN 11/23/18 [History] Omeprazole 20 mg PO DAILY 11/23/18 [History] Allergies/Adverse Reactions: Allergy/AdvReac Type Severity Reaction Status Date / Time azithromycin Allergy See Verified 06/13/17 07:37 Comments Certification: Further, I certify that my clinical findings support that this patient is homebound (i.e. absences from home require considerable and taxing effort and are for medical reasons or bahai services or infrequently or short duration when for other reasons) because: Homebound Reason: Leaving home requires considerable and taxing effort due to condition Attestation: My signature below is to certify that this patient is under my care and that I, or nurse practitioner, or a physician's program services assistant working with me, has a [id number] encounter with this patient.
--- NOTE | 2018-11-23 14:29 | Discharge Summary ---
Outpatient Proc Discharge Plan - Plan Additional Instructions: Daily MILTON tube site care: wash with antibacterial soap. Replace with 2 split gauze. Tape to secure Daily wound care: May leave open to air or cover with a dry dressing if the amirah catch on clothes or if you prefer Continuous J-tube feedings per institute director recommendations 1) Do not aspirate for residuals. 2) All medications must be crushed and dissolved until they are liquid or use liquid medications only. Flush with 50 ML's water after every medication administration. 3) further flesh amounts her nutrition recommendations/protocol. 4) J-tube feedings to begin 11/24/2018. Continuous at 25 ml/hr. Formula per dietitian recommendations. Intervention: Tube Feeding to start 11/24/18 per surgery team: Tube Feeding via J-tube: Start Osmolite 1.2 @ 25mL/hr and advance by 10mls Q6H to a goal rate of 80mL/hr -- Per 24Hrs Provides: 2304kcal, 1574mL Free Water, 106g protein Free Water Flushes of 250mL 3x/day, for example @ 0800, 1300, 1800 -- Provides an additional 750mL Free Water per 24Hrs Home Medications: Lisinopril [Zestril] 10 mg PO DAILY 06/13/17 [History] Glycopyrrolate [Robinul] 1 mg PO BID 11/23/18 [History] LORazepam [Lorazepam] 2 mg PO HS PRN 11/23/18 [History] Omeprazole 20 mg PO DAILY 11/23/18 [History]
--- NOTE | 2018-11-23 14:51 | Anesthesia Evaluation Post Op ---
Date of Encounter: 11/23/18 Time of Encounter: 12:14 - Discharge PostOp Status: Transfer Patient to floor (Patient's vital signs have been reviewed. Patient is stable postoperatively and has adequately recovered from anesthesia. Patient is determined to have stable airway patency and respiratory function including respiratory rate and oxygen saturation. Patient has a stable heart rate, blood pressure and adequate hydration. Patients mental status is acceptable. Patients temperature is appropriate. Pain and nausea are adequately controlled)
--- NOTE | 2018-11-23 15:59 | Event Note ---
Date of Encounter: 11/23/18 Time of Encounter: 15:51 Received call from [facility] (to surgery office) that [facility]Fs [facility] to pt's home/available to manage TF until Monday. Per [facility], recommend teaching to manage TF until then. Order placed for TF education and redemonstration w/ prior tod/c. After this phone call, I reached out to SERGIO Almaraz who states that in-fact the [facility] though patient was getting a PEG tube (despite all documentation on 11/20/2018 per surgeon stating an Open jejunostomy tube would be required), and as such a pump for continuous tube feeds had not been ordered. Dietitian states she was told this pump would not be there until next week. I reached out to Kailey Theodore psychologist social asked her to reach out to the [facility] to confirm this information. In the meantime a further record review of [facility] notes that order for tube feed needs to be faxed to [phone]. Further review on 11/23 as a late entry for 11/20/18, the cnjitendra cneter adobe cq developer noted per Jessika at the [facility], shipment of 2 Daryn HN up to 5 cans per day would be sent to the patient's home. This WARE CLEANER has filled out a prescription for Osmolite as that is the dietitian in-hospital recommendation. This can be adjusted per the oncology dietitian if needed. IF patient is unable to have pump for continuous feedings, he will need to remain in the hospital.
[2018-11-23] MEDS: 0.9 % Sodium Chloride 1,000 ML IVC SCH (16:59)
[2018-11-23] MEDS: *HR* LORazepam 2 MG/ML VIAL IVP SCH (21:42)
[2018-11-24 09:05] LABS: Basophils % 0.2 %; Eosinophils # 0.1 K/mcL (0.0-0.6); Eosinophils % 0.7 %; Hematocrit 31.5 % (37.5-50.1); Hemoglobin 10.9 g/dL (12.9-16.9); Immature Granulocytes % 0.2 % (0-4); Lymphocytes # 1.1 K/mcL (0.6-4.6); Lymphocytes % 12.2 %; Mean Corpuscular HGB Conc 34.6 g/dL (31.6-35.5); Mean Corpuscular Hemoglobin 34.5 pg (28.0-33.3); Mean Corpuscular Volume 99.7 fL (83.0-100.0); Mean Platelet Volume 8.8 fL (9.4-12.4); Monocytes # 0.7 K/mcL (0.0-1.3); Monocytes % 7.9 %; Neutrophils # 7.1 K/mcL (1.6-8.9); Platelet Count 179 K/mcL (140-400); Red Blood Count 3.16 M/mcL (4.19-5.50); Red Cell Distribution Width 12.6 % (11.5-14.5); Segmented Neutrophils % 78.8 %
--- NOTE | 2018-11-24 09:14 | AcuteCareSurgery Progress Note ---
Date of Encounter: 11/24/18 Time of Encounter: 07:20 - Assessment and Plan (1) Esophageal cancer Current Visit: Yes Status: Chronic The patient is no longer able to take adequate oral intake to maintain his weight. He had jejunostomy tube placed yesterday. We started low volume feedings continuously today. We will plan to advance the feedings tomorrow and discharge from the hospital as soon as his home nutritional supplies are available likely on Monday Qualifiers: Malignant neoplasm of esophagus location: lower third Qualified Code(s): C15.5 - Malignant neoplasm of lower third of esophagus (2) Protein-calorie malnutrition, severe Current Visit: Yes Status: Acute The patient is unable to take adequate hydration or nutrition secondary to obstructing esophageal cancer area jejunostomy tube has been placed for nutritional support. The patient has had greater than 25 pound weight loss. Subjective Narrative: The patient is postoperative day 1 from jejunostomy tube placement. He continues on IV fluid hydration. We will start jejunostomy tube feedings at 25 mL/h. I would like to hold at this rate for the first 24 hours and then advance feedings tomorrow. Home health and nutritional support will not be available to the patient until Monday. We will plan to keep him in the hospital and he has no postoperative pain is afebrile and vital signs are stable. Objective Vital Signs - Last 8 Hours Temp Pulse Resp BP Pulse Ox 11/24/18 07:56 98.6 F 73 15 162/69 96 11/24/18 03:19 97.7 F 75 14 147/71 97 Intake and Output 11/23/18 11/24/18 11/24/18 23:59 07:59 15:59 Intake Total 100 / 120 Output Total 0 / 10 Balance 100 / 110 Intake: IV Fluids 100 / 120 Ancef 2,000 MG In 0.9 % Sodium 100 / 100 Chloride 100 ML @ 200 mls/hr IVPB Q8HR [facility] Rx#:[id number] Oral 0 / 0 Output: Urine 0 / 0 Other: Weight 71.5 kg Blood Glucose* 94 96 Patient Weight 11/24/18 23:59 Weight 71.5 kg - General physical appearance chronically ill - Respiratory normal expansion, normal respiratory effort - Cardiovascular Cardiovascular exam: Present: RRR, no murmurs/rubs/gallops - Abdomen Abdomen: Present: bowel sounds present, soft, non tender - Incision Incision: Present: clean and dry (Jejunostomy tube is intact with no bleeding) - Neurologic normal coordination, normal sensation - Psychiatric oriented to time, oriented to person, oriented to place, speech is normal, memory intact Consult Discharge Plan - Plan Additional Instructions: Daily MILTON tube site care: wash with antibacterial soap. Replace with 2 split gauze. Tape to secure Daily wound care: May leave open to air or cover with a dry dressing if the amirah catch on clothes or if you prefer Continuous J-tube feedings per state game warden recommendations 1) Do not aspirate for residuals. 2) All medications must be crushed and dissolved until they are liquid or use liquid medications only. Flush with 50 ML's water after every medication administration. 3) further flesh amounts her nutrition recommendations/protocol. 4) J-tube feedings to begin 11/24/2018. Continuous at 25 ml/hr. Formula per dietitian recommendations. Intervention: Tube Feeding to start 11/24/18 per surgery team: Tube Feeding via J-tube: Start Osmolite 1.2 @ 25mL/hr and advance by 10mls Q6H to a goal rate of 80mL/hr -- Per 24Hrs Provides: 2304kcal, 1574mL Free Water, 106g protein Free Water Flushes of 250mL 3x/day, for example @ 0800, 1300, 1800 -- Provides an additional 750mL Free Water per 24Hrs Referrals: Suzy Monterroso GREEN PRIZE PACKER [Advanced Practice Nurse] - 12/03/18 1:30 pm [facility]Primary Care Provider[facility] -
[2018-11-24 09:17] LABS: BUN/Creatinine Ratio 24 (6-26); Blood Urea Nitrogen 20 mg/dL (8-23); Calcium 8.5 mg/dL (8.6-10.3); Carbon Dioxide 25 mEq/L (23-29); Chloride 107 mEq/L (98-107); Glucose 103 mg/dL (70-105); Osmolality,Calculated 289 (280-300); Potassium 4.2 mEq/L (3.5-5.1); Sodium 138 mEq/L (136-145); eGFR For African Americans > 60 (> 60); eGFR For Non-African Americans > 60 (> 60)
[2018-11-24] MEDS: Pantoprazole 40 MG VIAL IVP SCH (10:14)
[2018-11-24] MEDS: 0.9 % Sodium Chloride 1,000 ML IVC SCH (10:18)
[2018-11-24] MEDS: *HR* LORazepam 2 MG/ML VIAL IVP SCH (21:15)
--- NOTE | 2018-11-25 07:45 | AcuteCareSurgery Progress Note ---
Date of Encounter: 11/25/18 Time of Encounter: 07:40 - Assessment and Plan (1) Esophageal cancer Current Visit: Yes Status: Chronic The patient is no longer able to take adequate oral intake to maintain his weight. He had jejunostomy tube placed yesterday. We started low volume feedings continuously today. We will plan to advance the feedings tomorrow and discharge from the hospital as soon as his home nutritional supplies are available likely on Monday11/25/2018. The patient is seen and evaluated on morning rounds with the acute care surgery team. He does not have any bowel sounds yet. He is tolerating his continuous jejunostomy feedings at 25 mL an hour. We will maintain this rate until he develops good bowel sounds. 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 The patient has had greater than 25 pound weight loss. Subjective Narrative: The patient is seen and evaluated on morning rounds with the acute care surgery team. He is having very little pain. Incisions are clean and dry. Jejunostomy tube dysfunction well. He is receiving feedings at 25 mL an hour. On physical examination he has very few bowel sounds. I would like to wait until he has bowel sounds to advance his tube feedings. I will reevaluate him this afternoon. He is having increasing periods of unable to swallow his saliva. Neoadjuvant therapy is scheduled to begin on the Objective Vital Signs - Last 8 Hours Temp Pulse Resp BP Pulse Ox 11/25/18 06:31 98.3 F 69 16 128/69 97 11/25/18 00:01 98.4 F 78 16 143/73 96 Intake and Output 11/24/18 11/24/18 11/25/18 15:59 23:59 07:59 Intake Total 2059 0 / 0 Output Total 0 / 0 0 / 0 Balance 2059 0 / 0 Intake: IV Fluids 1000 / 2000 0.9 % Sodium Chloride 1,000 ML 1000 / 2000 @ 75 mls/hr IVC [id number] Rx #:[id number] Oral 0 / 0 0 / 0 Free Water 60 / 60 Free Water Intake Amount 0 / 0 Output: Urine 0 / 0 0 / 0 Other: Blood Glucose* 95 116 126 - General physical appearance no pain, chronically ill - Respiratory normal respiratory effort, clear to auscultation - Cardiovascular Cardiovascular exam: Present: RRR, no murmurs/rubs/gallops - Abdomen Abdomen: Present: soft, non tender (No bowel sounds yet) - Labs 11/24/18 08:45 11/24/18 08:45 Diabetes panel 11/24/18 Range/Units 08:45 Sodium 138 (136-145) mEq/L Potassium 4.2 (3.5-5.1) mEq/L Chloride 107 (98-107) mEq/L Carbon Dioxide 25 (23-29) mEq/L BUN 20 (8-23) mg/dL Creatinine 0.83 (0.70-1.30) mg/dL Glucose 103 (70-105) mg/dL Calcium 8.5 L (8.6-10.3) mg/dL Calcium panel 11/24/18 Range/Units 08:45 Calcium 8.5 L (8.6-10.3) mg/dL Pituitary panel 11/24/18 Range/Units 08:45 Sodium 138 (136-145) mEq/L Potassium 4.2 (3.5-5.1) mEq/L Chloride 107 (98-107) mEq/L Carbon Dioxide 25 (23-29) mEq/L BUN 20 (8-23) mg/dL Creatinine 0.83 (0.70-1.30) mg/dL Glucose 103 (70-105) mg/dL Calcium 8.5 L (8.6-10.3) mg/dL Adrenal panel 11/24/18 Range/Units 08:45 Sodium 138 (136-145) mEq/L Potassium 4.2 (3.5-5.1) mEq/L Chloride 107 (98-107) mEq/L Carbon Dioxide 25 (23-29) mEq/L BUN 20 (8-23) mg/dL Creatinine 0.83 (0.70-1.30) mg/dL Glucose 103 (70-105) mg/dL Calcium 8.5 L (8.6-10.3) mg/dL Consult Discharge Plan - Plan Additional Instructions: Daily MILTON tube site care: wash with antibacterial soap. Replace with 2 split gauze. Tape to secure Daily wound care: May leave open to air or cover with a dry dressing if the amirah catch on clothes or if you prefer Continuous J-tube feedings per instructor hairspring recommendations 1) Do not aspirate for residuals. 2) All medications must be crushed and dissolved until they are liquid or use liquid medications only. Flush with 50 ML's water after every medication ad ministration. 3) further flesh amounts her nutrition recommendations/protocol. 4) J-tube feedings to begin 11/24/2018. Continuous at 25 ml/hr. Formula per dietitian recommendations. Intervention: Tube Feeding to start 11/24/18 per surgery team: Tube Feeding via J-tube: Start Osmolite 1.2 @ 25mL/hr and advance by 10mls Q6H to a goal rate of 80mL/hr -- Per 24Hrs Provides: 2304kcal, 1574mL Free Water, 106g protein Free Water Flushes of 250mL 3x/day, for example @ 0800, 1300, 1800 -- Provides an additional 750mL Free Water per 24Hrs Referrals: Suzy Monterroso, ESOL TEACHER [Advanced Practice Nurse] - 12/03/18 1:30 pm [facility] [Primary Care Provider] -
[2018-11-25] MEDS: Pantoprazole 40 MG VIAL IVP SCH (09:22)
[2018-11-25] MEDS: 0.9 % Sodium Chloride 1,000 ML IVC SCH ×2 (13:14)
[2018-11-25] MEDS: *HR* LORazepam 2 MG/ML VIAL IVP SCH (20:27)
[2018-11-26] MEDS: 0.9 % Sodium Chloride 1,000 ML IVC SCH ×3 (02:10→15:45)
[2018-11-26] MEDS: Pantoprazole 40 MG VIAL IVP SCH (08:51)
--- NOTE | 2018-11-26 11:24 | AcuteCareSurgery Progress Note ---
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 Plan to advance TF to goal. Once pt is tolerating goal rate TF, then can DC home. Plan d/w landing scaler who is ordering TF rates. OOB (up to chair and ambulate with assistance) as tolerated. Subjective Patient reports: no new complaints, feels better, pain is less, flatus, no bowel movement, afebrile Narrative: tolerates no PO d/t circumferential esophageal cancer Objective Vital Signs - Last 8 Hours Temp Pulse Resp BP Pulse Ox 11/26/18 10:23 98.3 F 64 16 129/75 98 11/26/18 08:15 97 11/26/18 07:41 98.5 F 60 16 128/64 97 11/26/18 04:20 98.1 F 79 16 144/72 96 Intake and Output 11/25/18 11/26/18 11/26/18 23:59 07:59 15:59 Intake Total 1000 / 1060 60 / 1060 Balance 1000 / 1060 60 / 1060 Intake: IV Fluids 1000 / 1000 0.9 % Sodium Chloride 1,000 ML 1000 / 1000 @ 75 mls/hr IVC .[id number] Rx #:[id number] Free Water Intake Amount 60 / 60 Other: Weight 72.1 kg Blood Glucose* 120 109 Patient Weight 11/26/18 23:59 Weight 72.1 kg - General physical appearance no distress, no pain - Eyes PERRL, normal ocular movement - ENT no congestion, dry mucosa - Neck Neck exam: trachea midline, no venous distension - Respiratory normal respiratory effort, clear to auscultation - Cardiovascular Cardiovascular exam: Present: RRR. Absent: JVD - Abdomen Abdomen: Present: bowel sounds present (normalizing), soft, non tender - Incision Incision: Present: clean and dry, intact - Neurologic CN 2-12 grossly intact, normal coordination - Musculoskeletal normal posture - Psychiatric oriented to time, oriented to person, oriented to place - Labs 11/24/18 08:45 11/24/18 08:45 Consult Discharge Plan - Plan Additional Instructions: Daily MILTON tube site care: wash with antibacterial soap. Replace with 2 split gauze. Tape to secure Daily wound care: May leave open to air or cover with a dry dressing if the amirah catch on clothes or if you prefer Continuous J-tube feedings per cut off sawyer log recommendations 1) Do not aspirate for residuals. 2) All medications must be crushed and dissolved until they are liquid or use liquid medications only. Flush with 50 ML's water after every medication administration. 3) further flesh amounts her nutrition recommendations/protocol. 4) J-tube feedings to begin 11/24/2018. Continuous at 25 ml/hr. Formula per dietitian recommendations. Intervention: Tube Feeding to start 11/24/18 per surgery team: Tube Feeding via J-tube: Start Osmolite 1.2 @ 25mL/hr and advance by 10mls Q6H to a goal rate of 80mL/hr -- Per 24Hrs Provides: 2304kcal, 1574mL Free Water, 106g protein Free Water Flushes of 250mL 3x/day, for example @ 0800, 1300, 1800 -- Provides an additional 750mL Free Water per 24Hrs Referrals: Suzy Monterroso CNP [Advanced Practice Nurse] - 12/03/18 1:30 pm [facility] [Primary Care Provider] -
[2018-11-26] MEDS ORDERED: *HR* OxyCODONE Oral Soln 5 MG/5 ML UD.LIQ GTUBE PRN (13:28)
[2018-11-27] MEDS: *HR* LORazepam 2 MG/ML VIAL IVP SCH (02:55)
[2018-11-27] MEDS: 0.9 % Sodium Chloride 1,000 ML IVC SCH (05:07)
[2018-11-27 07:30] VITALS: BP 141/69
[2018-11-27] MEDS: Pantoprazole 40 MG VIAL IVP SCH (07:59)
--- NOTE | 2018-11-27 09:20 | Discharge Summary ---
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 Qualified Code(s): C15.5 - Malignant neoplasm of lower third of esophagus General Surgery Exam Initial Vital Signs Temp Pulse Resp BP Pulse Ox 98.4 F 81 18 135/75 99 11/23/18 09:29 11/23/18 09:29 11/23/18 09:29 11/23/18 09:29 11/23/18 09:29 - General physical appearance no distress, moderate pain (controlled) - Respiratory normal expansion, normal respiratory effort - Cardiovascular Cardiovascular exam: Present: RRR - Abdomen Abdomen general surgery: Present: bowel sounds present, soft, tender - Incision Incision: Present: clean and dry, intact - Integumentary Integumentary general surgery: Present: warm and dry - Neurologic Present: normal coordination, normal sensation - Musculoskeletal Present: normal posture - Psychiatric Psychiatric general surgery: Present: A&Ox3 - Hospital Course Hospital course: Mr. Sarmiento is a 78 year old male - Time Spent with Patient Total time spent providing and/or coordinating discharge services: - Discharge Medications Prescriptions: Continued Lisinopril [Zestril] 10 mg PO DAILY Glycopyrrolate [Robinul] 1 mg PO DAILY Oxycodone HCl 5 mg PO Q8H PRN PRN Reason: Pain Ondansetron HCl 8 mg PO Q6H PRN PRN Reason: Nausea Multivitamin [Daily Multiple Vitamin] 1 tab PO DAILY Lansoprazole [Prevacid] 30 mg PO DAILY Cholecalciferol (Vitamin D3) [Vitamin D3] 1 ml SL QAM Prochlorperazine Maleate [Compazine] 10 mg PO TID PRN PRN Reason: NAUSEA/VOMITING Vit C/E/Zn/Coppr/Lutein/Zeaxan [Preservision Areds 2 Softgel] 2 cap PO QAM Home Medications: Lisinopril [Zestril] 10 mg PO DAILY 06/13/17 [History] Cholecalciferol (Vitamin D3) [Vitamin D3] 1 ml SL QAM 11/23/18 [History] Glycopyrrolate [Robinul] 1 mg PO DAILY 11/23/18 [History] Lansoprazole [Prevacid] 30 mg PO DAILY 11/23/18 [History] Multivitamin [Daily Multiple Vitamin] 1 tab PO DAILY 11/23/18 [History] Ondansetron HCl 8 mg PO Q6H PRN 11/23/18 [History] Oxycodone HCl 5 mg PO Q8H PRN 11/23/18 [History] Prochlorperazine Maleate [Compazine] 10 mg PO TID PRN 11/23/18 [History] Vit C/E/Zn/Coppr/Lutein/Zeaxan [Preservision Areds 2 Softgel] 2 cap PO QAM 11/23/18 [History] Allergies/Adverse Reactions: Allergy/AdvReac Type Severity Reaction Status Date / Time azithromycin Allergy See Verified 11/23/18 21:57 Comments Date of admission: 11/23/18 16:27 [facility] care physician: [facility] Consults: 11/23/18 12:48 Consult to Nutrition [CONS] Stat Comment: J-tube feeds continuous 11/24 and reccs for home Consulting Provider: NUTRITION Reason for Dietary Consult: Tube Feed Start & Manage Other:: starrt continuous j-tube feeds at 25ml/hr 11/24 Consult to Processing Technologist [CONS] Stat Reason for SW Consult: Home healthcare for continuous J-tube feedings. Likely discharge over the weekend. 11/23/18 16:29 Consult to Occupational Therapy [CONS] Routine Comment: Evaluate, develop and implement POC Reason for Consult: Mobilization and discharge planning Does patient have active BEDREST order?: No Is patient medically & hemodynamically stable?: Yes Patient assessed for mobility or mobilized this visit?: No Consult to Physical Therapy [CONS] Routine Comment: Evaluate, develop and implement POC Reason for Consult: Mobilization and discharge planning Does patient have active BEDREST order?: No Is patient medically & hemodynamically stable?: Yes Patient assessed for mobility or mobilized this visit?: No Discharging clinician: Jai Monterroso, PRIEST-INDEPENDENT VIDEO PRODUCER) Anticipated date of discharge: 11/27/18 Labs on day of discharge: Labs from last 24 hours 11/26/18 11/25/18 11/25/18 05:25 18:20 11:37 POC Glucose 109 H 120 H 119 H - Patient Status Disposition: Home Health Service Condition: Fair Functional capacity at discharge: uses cane/walker Overall status at discharge: patient is progressing back to baseline - Discharge Instructions Follow Up With: Suzy Monterroso CNP [Advanced Practice Nurse] - 12/03/18 1:30 pm [facility] [Primary Care Provider] - Additional Instructions: Daily MILTON tube site care: wash with antibacterial soap. Replace with 2 split gauze. Tape to secure Daily wound care: May leave open to air or cover with a dry dressing if the amirah catch on clothes or if you prefer Continuous J-tube feedings per weight loss counselor recommendations 1) Do not aspirate for residuals. 2) All medications must be crushed and dissolved until they are liquid or use liquid medications only. Flush with 50 ML's water after every medication administration. 3) further flesh amounts her nutrition recommendations/protocol. 4) Intervention: Tube Feeding to start 11/24/18 per surgery team: Tube Feeding via J-tube: Start Osmolite 1.2 @ 25mL/hr and advance by 10mls Q6H to a goal rate of 80mL/hr -- Per 24Hrs Provides: 2304kcal, 1574mL Free Water, 106g protein Free Water Flushes of 250mL 3x/day, for example @ 0800, 1300, 1800 -- Provides an additional 750mL Free Water per 24Hrs - Diet and Activity Activity: as per physical therapy, increase activity as tolerated Diet: other (Continuous tube feeds at 80 ML per hour) <Jai Hoyos - Last Filed: 11/27/18 15:18> Date of Encounter: 11/27/18 - Discharge Diagnosis (1) Esophageal cancer Status: Chronic Qualifiers: 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 Sarmiento is a 78 year old male - Time Spent with Patient Total time spent providing and/or coordinating discharge services: Date of admission: 11/23/18 16:27 Primary care physician: [facility] Consults: 11/23/18 12:48 Consult to Nutrition [CONS] Stat Comment: J-tube feeds continuous 11/24 and reccs for home Consulting Provider: NUTRITION Reason for Dietary Consult: Tube Feed Start & Manage Other:: starrt continuous j-tube feeds at 25ml/hr 11/24 Consult to Processing Technologist [CONS] Stat Reason for SW Consult: Home healthcare for continuous J-tube feedings. Likely discharge over the weekend. 11/23/18 16:29 Consult to Occupational Therapy [CONS] Routine Comment: Evaluate, develop and implement POC Reason for Consult: Mobilization and discharge planning Does patient have active BEDREST order?: No Is patient medically & hemodynamically stable?: Yes Patient assessed for mobility or mobilized this visit?: No Consult to Physical Therapy [CONS] Routine Comment: Evaluate, develop and implement POC Reason for Consult: Mobilization and discharge planning Does patient have active BEDREST order?: No Is patient medically & hemodynamically stable?: Yes Patient assessed for mobility or mobilized this visit?: No Labs on day of discharge: Labs from last 24 hours 11/26/18 11/25/18 11/25/18 05:25 18:20 11:37 POC Glucose 109 H 120 H 119 H - Attending Attestation I have personally performed a face to face evaluation on this patient. I have reviewed and agree with the care plan. History and Exam by me shows: The patient is seen and evaluated on morning rounds with the acute care surgery team. He is rate is at 45. We will advance to 55 which is his goal rate and arrange discharge from the hospital. He may start his radiation chemotherapy on the . We will plan to perform his operation between 4 and 6 weeks after completion of his radiation therapy
[2018-11-28] MEDS ORDERED: Bisacodyl 10 MG RECTAL SUPPOSITORY RC SCH (11:00)
== END 2018-11-27 10:44 | disposition home health service (06) | DRG 329 ==
LOC: SAMDAY 08:38 → 3ANU 12:24
PROVIDERS: ADMIT Surgery; ATTEND Surgery

== ENCOUNTER 2018-12-10 12:24 | Inpatient (IN) ==
--- NOTE | 2018-12-10 12:34 | Emergency Department Note ---
Disposition Clinical Impression: Cellulitis Qualifiers: Site of cellulitis: trunk Site of cellulitis of trunk: abdominal wall Qualified Code(s): L03.311 - Cellulitis of abdominal wall Nausea and vomiting Qualifiers: Vomiting type: unspecified Vomiting Intractability: unspecified Qualified Code(s): R11.2 - Nausea with vomiting, unspecified Failure to thrive Qualifiers: Failure to thrive age range: in adult Qualified Code(s): R62.7 - Adult failure to thrive Disposition: Admitted As Inpatient Condition: Fair Forms: ED Satisfaction Letter, Work/School Release Time of Disposition: 15:26 Weakness HPI - General Chief complaint: ED General Medical Stated complaint: WEAKNESS Time Seen by Provider: 12/10/18 12:31 Source: patient, family Mode of arrival: ambulatory Limitations: no limitations Nursing Notes Reviewed: Yes Vital Signs Reviewed: Yes - History of Present Illness HPI Narrative: 78-year-old male 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 Patient also has undergone first round of chemotherapy last Monday with proceeding 5 days of radiation treatment. Patient states on his third day of radiation he began developing dry heaves, he states that he has pain which is minor and his left upper quadrant where his gastric tumor resides, patient states that he has also been having nausea. However states that this time that he has taken oxycodone and Phenergan prior to arrival and thus his pain and nausea are well controlled at this time. Patient states that when he was scheduled to go to chemotherapy today that he became profoundly weak and began feeling as though he was given a pass out had a presyncopal episode at home and nearly fell but was able to ease himself down to his stool. He denies any trauma during this event. Patient states that he has no energy is lightheadedness and dizzy in addition to the symptoms mentioned above. He denies any chest pain or shortness of breath, he has no urinary symptoms or abnormal bleeding. Upon my initial evaluation the patient is reclining in hospital but he is awake alert oriented he is engaged conversation answering questions appropriately. However the patient does appear to be pale, he appears to be quite fatigued and is notably mildly dyspneic to conversation. The patient appears to be dehydra jamie clinically. At this time I will initiate basic laboratories plus checks x- ray, KUB for concern of bowel obstruction as patient has a history of such, EKG/old EKG, troponin, magnesium. Pt Subjective Complaint: generalized weakness/fatigue Onset (ago): day(s) Duration: gradually worsening Location: generalized Migration: none Pain Severity: mild Improves with: none Worsens with: none Context: other (Chemotherapy/radiation) Associated symptoms: Reports: nausea/vomiting (Patient has no by mouth intake and is entirely G-tube dependent) - Related Data Home Medications Medication Instructions Recorded Confirmed Oxycodone HCl 5 mg GTUBE Q8H PRN 11/23/18 12/10/18 Promethazine Syrup [Phenergan 12.5 mg GTUBE PRN PRN 12/10/18 12/10/18 Syrup] Allergies Allergy/AdvReac Type Severity Reaction Status Date / Time azithromycin Allergy See Verified 12/10/18 14:27 Comments Review of Systems: *See History of Present Illness for more detail Constitutional: Admits to malaise, generalized weakness Denies: fever, chills HEENT: Denies dysphagia/odynophagia, lymphadenopathy Cardiovascular: Denies: chest pain Respiratory: Denies: dyspnea, cough, hemoptysis Gastrointestinal: Admits: abdominal pain, nausea, denies: vomiting, diarrhea, constipation, hematemesis, melena, hematochezia Genitourinary: Denies: hematuria Musculoskeletal: Denies: back pain, neck pain Neurological: Admits: Weakness, lightheadedness/dizziness denies: Headache, n umbness, paresthesias, difficulty with ambulation. Endocrine: Admits: fatigue All systems ED: reviewed and negative except as stated. Review of Systems: As Per HPI Past Medical History - Past Medical History Medical history: Reports: arthritis, cancer, GERD, hypertension, other Surgical history: Reports: cataract, cholecystectomy, herniorrhaphy Psychiatric history: Reports: no psych history - Social History Smoking Status: Former smoker Smokeless Tobacco Status: No Alcohol use: Reports: occasionally Drug use: Reports: none Physical Exam Constitutional: No acute distress, [id number], engaged to conversation, speech is fluid, answers questions appropriately Neuro: GCS 15, no overt focal neurological deficits Head: Atraumatic, normocephalic Eyes: Pupils equal, round and reactive to light, no scleral icterus, no conjunctival injection Neck: Trachea midline without deviation. Anterior neck is supple without sw elling. *Chest: Symmetric chest wall rise *Heart: Cardiac rhythm and rate are regular with S1 and S2 , no S3 or S4 appreciated, no murmurs, gallops, rubs, or clicks. *Lungs: Lungs are clear to auscultation bilaterally, without accessory muscle use or prolonged expiratory phase. No wheezes, rhonchi or stridor appreciated. Abdomen: J-tube drain with yellowish-brown exudate, mildly erythematous to site, midline scar appears clean, dry, well-healing. Abdomen is flat, soft to palpation, normal bowel sounds. No abdominal bruit auscultated. Non-distended, non-rigid, no organomegaly, no ascites appreciated. No pulsatile mass, no tenderness or guarding to palpation in all four quadrants, no rebound Extremities: Normal capillary refill without evidence of pedal edema, joint swelling or erythema. Pulses/motor intact in all 4 extremities. Psychiatric exam: Patient displays a normal affect and mood for the environment. No overt signs of hallucination. Integumentary: warm, dry, intact, normal color. No rash, cyanosis, diaphoresis, erythema, or pallor - General Limitations: no limitations General appearance: alert, in no apparent distress Course Course Narrative: Patient states that he is asymptomatic at this time and does not require pain or nausea meds. I have instructed the patient has family to let me know immediately if he develops symptoms. At this time I will initiate basic laboratory with CBC, BMP, hepatic panel, lipase, magnesium, phosphate, EKG/old EKG, troponin, chest x-ray, KUB, urinalysis, blood and wound cultures, saline for rehydration. Vital Signs Temperature 98.8 F 12/10/18 12:32 Pulse Rate 88 12/10/18 12:32 Respiratory Rate 18 12/10/18 12:32 Blood Pressure 137/84 12/10/18 12:32 O2 Sat by Pulse Oximetry 100 12/10/18 12:32 Temperature 98.8 F 12/10/18 12:32 Pulse Rate 82 12/10/18 14:20 Respiratory Rate 20 12/10/18 14:20 Blood Pressure 139/67 12/10/18 14:20 O2 Sat by Pulse Oximetry 98 12/10/18 14:20 Oxygen Delivery Oxygen Delivery Room Air Weakness - MDM Narrative Medical decision making narrative: The patients EKG, imaging, and laboratory results show no acute pathology . Evaluation results were discussed with the patient and their family member(s) at bedside. Patient was given time to ask questions and state concerns. The patient states that they have had some relief of their symptoms with our management here in the ED. However the patient remains weak with nausea and dry heaving. The patient will be admitted to the hospitalist medicine service for further evaluation and management of flail thrive, abdominal cellulitis, pain and nausea . Patient given Rocephin and Phenergan here in the ED for symptom management. The patient verbalizes their understanding and agreement with this plan and is hemodynamically stable at the time of admission. - Lab Data Lab results reviewed: Yes I reviewed the patient's lab results. Result diagrams: 12/10/18 12:32 12/10/18 12:32 Lab Results 12/10/18 12/10/18 Range/Units 12:32 12:32 WBC 7.7 (4.3-11.1) K/mcL RBC 3.12 L (4.19-5.50) M/mcL Hgb 10.3 L (12.9-16.9) g/dL Hct 30.5 L (37.5-50.1) % MCV 97.8 (83.0-100.0) fL MCH 33.0 (28.0-33.3) pg MCHC 33.8 (31.6-35.5) g/dL RDW 11.9 (11.5-14.5) % Plt Count 353 (140-400) K/mcL MPV 9.1 L (9.4-12.4) fL Immature Gran % 1.3 (0-4) % Seg Neutrophils % 75.7 % Lymphocytes % 8.5 % Monocytes % 12.7 % Eosinophils % 1.4 % Basophils % 0.4 % Neutrophils # 5.9 (1.6-8.9) K/mcL Lymphocytes # 0.7 (0.6-4.6) K/mcL Monocytes # 1.0 (0.0-1.3) K/mcL Eosinophils # 0.1 (0.0-0.6) K/mcL Basophils # 0.0 (0.0-0.2) K/mcL Sodium 133 L (136-145) mEq/L Potassium 4.4 (3.5-5.1) mEq/L Chloride 98 (98-107) mEq/L Carbon Dioxide 30 H (23-29) mEq/L BUN 18 (8-23) mg/dL Creatinine 0.69 L (0.70-1.30) mg/dL Est GFR ( Amer) > 60 (> 60) Est GFR (Non-Af Amer) > 60 (> 60) BUN/Creatinine Ratio 26 (6-26) Glucose 91 (70-105) mg/dL Calculated Osmolality 277 L (280-300) Calcium 8.6 (8.6-10.3) mg/dL Phosphorus 3.6 (2.7-4.5) mg/dL Magnesium 2.0 (1.6-2.6) mg/dL Troponin I < 0.03 (< 0.04) ng/mL - Radiology Data Radiology results reviewed: Yes I reviewed the patient's radiology results. Chest X-Ray 12/10/18 12:52 IMPRESSION: No active cardiopulmonary disease D/ / Ryne Roberson MD / Ryne Roberson MD Interpreting Provider: Ryne Roberson MD X-Ray 12/10/18 13:37 IMPRESSION: Nonspecific but nonobstructive bowel gas pattern. No acute abnormalities are seen. D/ / 12/10/2018 13:41:29 Nhan Giang MD / [facility] Interpreting Provider: Nhan Giang MD - EKG Data EKG attestation: Yes I reviewed and interpreted this EKG. EKG results narrative: The patients EKG shows a sinus rhythm at a computer analyzed rate of 80 beats per minute, [place] interval of 149 milliseconds, a QRS duration of 77 milliseconds, a QT/QTc interval of 355 / 410 milliseconds respectively. There are no significant ST segment elevations, depressions, pathologic Q waves, abnormal T- wave inversions, nor any other signs of acute ischemic change. This EKG that was performed today is generally consistent in morphology with prior EKG that was performed on 11/22/2018.
[2018-12-10] MEDS ORDERED: 0.9 % Sodium Chloride 1,000 ML IVC ONE (12:59)
[2018-12-10 13:44] LABS: Basophils % 0.4 %; Eosinophils # 0.1 K/mcL (0.0-0.6); Eosinophils % 1.4 %; Hematocrit 30.5 % (37.5-50.1); Hemoglobin 10.3 g/dL (12.9-16.9); Immature Granulocytes % 1.3 % (0-4); Lymphocytes # 0.7 K/mcL (0.6-4.6); Lymphocytes % 8.5 %; Mean Corpuscular HGB Conc 33.8 g/dL (31.6-35.5); Mean Corpuscular Volume 97.8 fL (83.0-100.0); Mean Platelet Volume 9.1 fL (9.4-12.4); Monocytes % 12.7 %; Neutrophils # 5.9 K/mcL (1.6-8.9); Platelet Count 353 K/mcL (140-400); Red Blood Count 3.12 M/mcL (4.19-5.50); Red Cell Distribution Width 11.9 % (11.5-14.5); Segmented Neutrophils % 75.7 %; White Blood Count 7.7 K/mcL (4.3-11.1)
[2018-12-10 13:59] LABS: BUN/Creatinine Ratio 26 (6-26); Blood Urea Nitrogen 18 mg/dL (8-23); Calcium 8.6 mg/dL (8.6-10.3); Carbon Dioxide 30 mEq/L (23-29); Chloride 98 mEq/L (98-107); Glucose 91 mg/dL (70-105); Osmolality,Calculated 277 (280-300); Potassium 4.4 mEq/L (3.5-5.1); Sodium 133 mEq/L (136-145); Troponin I < 0.03 ng/mL (< 0.04); eGFR For African Americans > 60 (> 60); eGFR For Non-African Americans > 60 (> 60)
[2018-12-10 14:22] LABS: Phosphorous 3.6 mg/dL (2.7-4.5)
[2018-12-10] MEDS ORDERED: cefTRIAXone 1,000 MG in Water for inj. (sterile) 10 ML IVP ONE (15:14)
[2018-12-10] MEDS ORDERED: *HR* Promethazine 25 MG/ML VIAL IVP ONE (15:26)
--- NOTE | 2018-12-10 15:43 | Emergency Department Note ---
Disposition Clinical Impression: Cellulitis Qualifiers: Site of cellulitis: trunk Site of cellulitis of trunk: abdominal wall Qualified Code(s): L03.311 - Cellulitis of abdominal wall Nausea and vomiting Qualifiers: Vomiting type: unspecified Vomiting Intractability: unspecified Qualified Code(s): R11.2 - Nausea with vomiting, unspecified Failure to thrive Qualifiers: Failure to thrive age range: in adult Qualified Code(s): R62.7 - Adult failure to thrive Disposition: Admitted As Inpatient Condition: Fair Time of Disposition: 15:26 General Adult HPI - General Chief complaint: ED General Medical Stated complaint: WEAKNESS Time Seen by Provider: 12/10/18 12:31 Source: patient, family Mode of arrival: ambulatory Limitations: no limitations - History of Present Illness Pain Scale: 0 - Related Data Home Medications Medication Instructions Recorded Confirmed Oxycodone HCl 5 mg GTUBE Q8H PRN 11/23/18 12/10/18 Promethazine Syrup [Phenergan 12.5 mg GTUBE Q6H PRN 12/10/18 12/10/18 Syrup] Allergies Allergy/AdvReac Type Severity Reaction Status Date / Time azithromycin Allergy See Verified 12/10/18 21:20 Comments Past Medical History - Past Medical History Medical history: Reports: arthritis, cancer, GERD, hypertension, other Surgical history: Reports: cataract, cholecystectomy, herniorrhaphy Psychiatric history: Reports: no psych history - Social History Smoking Status: Former smoker Smokeless Tobacco Status: No Alcohol use: Reports: occasionally Drug use: Reports: none Physical Exam - General Limitations: no limitations General appearance: alert, in no apparent distress Course Vital Signs Temperature 98.8 F 12/10/18 12:32 Pulse Rate 88 12/10/18 12:32 Respiratory Rate 18 12/10/18 12:32 Blood Pressure 137/84 12/10/18 12:32 O2 Sat by Pulse Oximetry 100 12/10/18 12:32 Temperature 98.7 F 12/10/18 19:45 Pulse Rate 83 12/10/18 19:45 Respiratory Rate 14 12/10/18 19:45 Blood Pressure 145/73 12/10/18 19:45 O2 Sat by Pulse Oximetry 97 12/10/18 19:45 Oxygen Delivery Oxygen Delivery Room Air Medical Decision Making - Lab Data Result diagrams: 12/10/18 12:32 12/10/18 12:32 Lab Results 12/10/18 12/10/18 12/10/18 Range/Units 12:32 12:32 13:00 WBC 7.7 (4.3-11.1) K/mcL RBC 3.12 L (4.19-5.50) M/mcL Hgb 10.3 L (12.9-16.9) g/dL Hct 30.5 L (37.5-50.1) % MCV 97.8 (83.0-100.0) fL MCH 33.0 (28.0-33.3) pg MCHC 33.8 (31.6-35.5) g/dL RDW 11.9 (11.5-14.5) % Plt Count 353 (140-400) K/mcL MPV 9.1 L (9.4-12.4) fL Immature Gran % 1.3 (0-4) % Seg Neutrophils % 75.7 % Lymphocytes % 8.5 % Monocytes % 12.7 % Eosinophils % 1.4 % Basophils % 0.4 % Neutrophils # 5.9 (1.6-8.9) K/mcL Lymphocytes # 0.7 (0.6-4.6) K/mcL Monocytes # 1.0 (0.0-1.3) K/mcL Eosinophils # 0.1 (0.0-0.6) K/mcL Basophils # 0.0 (0.0-0.2) K/mcL Sodium 133 L (136-145) mEq/L Potassium 4.4 (3.5-5.1) mEq/L Chloride 98 (98-107) mEq/L Carbon Dioxide 30 H (23-29) mEq/L BUN 18 (8-23) mg/dL Creatinine 0.69 L (0.70-1.30) mg/dL Est GFR ( Amer) > 60 (> 60) Est GFR (Non-Af Amer) > 60 (> 60) BUN/Creatinine Ratio 26 (6-26) Glucose 91 (70-105) mg/dL Calculated Osmolality 277 L (280-300) Calcium 8.6 (8.6-10.3) mg/dL Phosphorus 3.6 (2.7-4.5) mg/dL Magnesium 2.0 (1.6-2.6) mg/dL Total Bilirubin 0.5 (0.3-1.0) mg/dL Direct Bilirubin 0.2 (0.0-0.2) mg/dL Indirect Bilirubin 0.3 (0.0-1.2) mg/dL AST 16 (13-39) Units/L ALT 21 (7-52) Units/L Alkaline Phosphatase 61 (34-104) Units/L Troponin I < 0.03 (< 0.04) ng/mL Serum Total Protein 5.9 L (6.4-8.9) g/dL Albumin 3.4 L (3.5-5.7) g/dL Globulin 2.5 (2.4-3.5) g/dL Albumin/Globulin Ratio 1.4 (1.1-2.2) Prealbumin 22.0 (17.0-34.0) mg/dL TSH 1.530 (0.340-5.600) mcIU/mL Attestation Statement - Attestation Attestation: I examined this patient and my medical decision-making was reviewed with the Resident Physician. I agree with the documented findings, disposition and treatment plan as described except to the extent set forth below. Patient 78-year-old Ines presents to emergency department with chief complaint of generalized weakness. The patient reports that he has history of gastric cancer and receives all of his nutrition via PEG tube to bypass tumor. Patient undergoing radiation chemotherapy as noticed that he is becoming progressively m ore weak and also noticed that he is extremely nauseated. The patient states that he has had multiple bouts of vomiting and now is having dry heaving. Physical exam patient is awake alert somewhat ill-appearing patient does appear to have dry mucous membranes. Medical decision management as laboratory studies were obtained due to the patient being treated for both with both chemotherapy and radiation the patient will be admitted to the hospital for further care. I personally supervised and was present for the altamirano/critical portions of the following procedures completed by the resident:EKG.
[2018-12-10] MEDS ORDERED: Naloxone 0.4 MG/ML INJ IVP PRN (16:55)
[2018-12-10] MEDS ORDERED: Ondansetron 4 MG/2 ML VIAL IVP PRN (16:55)
[2018-12-10] MEDS ORDERED: D5% in 0.45% NACL 1,000 ML IVC SCH (17:00)
[2018-12-10] MEDS ORDERED: Promethazine Syrup 6.25 MG/5 ML GTUBE PRN (17:01)
--- NOTE | 2018-12-10 17:09 | AcuteCare Surgery Consult Note ---
Date of Encounter: 12/10/18 Time of Encounter: 17:00 Assessment and Plan (1) Nausea and vomiting Current Visit: Yes Status: Acute Nausea and vomiting likely related to progressive esophageal obstruction from esophageal tumor worsened by inflammatory response to radiation therapy. His vomiting consists of saliva regurgitation only. He is not vomiting any tube feedings. His nausea is likely related to his chemotherapy and obstipation. This will be treated aggressively. We should be able to restart his tube feedings very soon after treatment with milk of magnesia or magnesium citrate. No evidence of infection. No leukocytosis. No cellulitis. No evidence of obstruction. Qualifiers: Vomiting type: unspecified Vomiting Intractability: unspecified Qualified Code(s): R11.2 - Nausea with vomiting, unspecified History of Present Illness Consult date: 12/10/18 Reason for consult: other (Nausea and vomiting) History of present illness: The patient is a 78-year-old man with newly diagnosed gastroesophageal junction adenocarcinoma. He recently had CAT scan of the chest and abdomen as well as PET scan. The disease process appears to be localized. He is currently receiving neoadjuvant chemotherapy and radiation therapy in anticipation of esophagectomy either from transhiatal or Ivar Zi approach. He recently had jejunostomy tube placed. His nausea and vomiting was investigated with KUB. There is no small bowel dilatation whatsoever. He has an increased stool burden on the right side of the colon. He states that he has not had bowel movement since starting increased narcotic therapy for pain last week. He has increased reported vomiting, however, this is the same saliva regurgitation he had during jejunostomy tube placement. This is likely from obstruction secondary to esophageal cancer rather than small bowel obstruction or obstruction at the jejunostomy site. I carefully examined the jejunostomy site the patient has a normal amount of drainage in reaction to the red rubber jejunostomy tube. The periwound tissues are in excellent condition. There is no evidence of cellulitis or infection. The drainage around the tube is not tube feeding. We should be able to use his jejunostomy tube for magnesium citrate or milk of magnesia followed by reinstituting his jejunostomy feedings. We will plan convalescent esophagectomy 4-6 weeks after completion of his neoadjuvant therapy Past Med Surg Social Fam HX - Past Medical History Medical history: arthritis, cancer, GERD, hypertension, other Additional medical history: Macular degeneration. DDD. Esophageal CA Psychiatric history: no psych history - Past Surgical History Surgical History: cataract, cholecystectomy, herniorrhaphy Additional surgical history: EGD - Social History Smoking Status: Former smoker Smokeless Tobacco Status: No Alcohol use: occasionally Drug use: none - Family History Father Adopted: No Family Member Ethnicity: Non- Twin of Family Member: Yes Living Status: Hx Family Cardiac Disorders: Yes (CHF) Hx Family Respiratory Disorders: Yes Hx Family Cancer: No Hx Family GI Disorders: No Hx Family Endocrine Disorder: No Hx Family Neuromuscular Disorders: No Hx Family Neurologic Disorders: No Hx Family HEENT Disorders: No Hx Family Autoimmune Disorders: No Medications and Allergies Oxycodone HCl 5 mg GTUBE Q8H PRN 11/23/18 [History] Promethazine Syrup [Phenergan Syrup] 12.5 mg GTUBE PRN PRN 12/10/18 [History] Allergy/AdvReac Type Severity Reaction Status Date / Time azithromycin Allergy See Verified 12/10/18 14:27 Comments Review of Systems All systems PM: The remainder of the systems were reviewed and are negative General Surgery Exam Initial Vital Signs Temp Pulse Resp BP Pulse Ox 98.8 F 88 18 137/84 100 12/10/18 12:32 12/10/18 12:32 12/10/18 12:32 12/10/18 12:32 12/10/18 12:32 - General physical appearance chronically ill, other (The patient is weak after receiving chemotherapy and radiation therapy) - Neck no masses, no bruits, trachea midline, no lymphadectomy - Respiratory normal expansion, normal respiratory effort, clear to auscultation - Cardiovascular Cardiovascular exam: Present: RRR, no murmurs/rubs/gallops - Abdomen Abdomen general surgery: Present: bowel sounds present, soft, non tender - Incision Incision: Present: intact (Jejunostomy site has mild drainage which is an expected finding with red rubber jejunostomy tubes. There is no surrounding cellulitis. This is not a infection.) - Neurologic Present: CN 2-12 grossly intact, normal coordination, normal sensation - Psychiatric Psychiatric general surgery: Present: appropriate, oriented to person, oriented to place, oriented to time, speech is normal, memory intact Exam Initial Vital Signs Temp Pulse Resp BP Pulse Ox 98.8 F 88 18 137/84 100 12/10/18 12:32 12/10/18 12:32 12/10/18 12:32 12/10/18 12:32 12/10/18 12:32 Results - Labs 12/10/18 12:32 12/10/18 12:32 Abnormal lab results RBC 3.12 M/mcL (4.19-5.50) L 12/10/18 12:32 Hgb 10.3 g/dL (12.9-16.9) L 12/10/18 12:32 Hct 30.5 % (37.5-50.1) L 12/10/18 12:32 MPV 9.1 fL (9.4-12.4) L 12/10/18 12:32 Sodium 133 mEq/L (136-145) L 12/10/18 12:32 Carbon Dioxide 30 mEq/L (23-29) H 12/10/18 12:32 Creatinine 0.69 mg/dL (0.70-1.30) L 12/10/18 12:32 Calculated Osmolality 277 (280-300) L 12/10/18 12:32 Diabetes panel 12/10/18 Range/Units 12:32 Sodium 133 L (136-145) mEq/L Potassium 4.4 (3.5-5.1) mEq/L Chloride 98 (98-107) mEq/L Carbon Dioxide 30 H (23-29) mEq/L BUN 18 (8-23) mg/dL Creatinine 0.69 L (0.70-1.30) mg/dL Glucose 91 (70-105) mg/dL Calcium 8.6 (8.6-10.3) mg/dL Calcium panel 12/10/18 Range/Units 12:32 Calcium 8.6 (8.6-10.3) mg/dL Phosphorus 3.6 (2.7-4.5) mg/dL Pituitary panel 12/10/18 Range/Units 12:32 Sodium 133 L (136-145) mEq/L Potassium 4.4 (3.5-5.1) mEq/L Chloride 98 (98-107) mEq/L Carbon Dioxide 30 H (23-29) mEq/L BUN 18 (8-23) mg/dL Creatinine 0.69 L (0.70-1.30) mg/dL Glucose 91 (70-105) mg/dL Calcium 8.6 (8.6-10.3) mg/dL Adrenal panel 12/10/18 Range/Units 12:32 Sodium 133 L (136-145) mEq/L Potassium 4.4 (3.5-5.1) mEq/L Chloride 98 (98-107) mEq/L Carbon Dioxide 30 H (23-29) mEq/L BUN 18 (8-23) mg/dL Creatinine 0.69 L (0.70-1.30) mg/dL Glucose 91 (70-105) mg/dL Calcium 8.6 (8.6-10.3) mg/dL All other labs normal. - Imaging Abdominal x-ray: image reviewed (I personally reviewed the KUB of the abdomen. This does not represent bowel obstruction. He has increased stool burden in the right colon) Consult Discharge Plan - Plan [facility]errals[facility]Primary Care Provider[facility] -
--- NOTE | 2018-12-10 17:20 | Internal Med History&Physical ---
<Ivonne Blank - Last Filed: 12/10/18 17:21> Date of Encounter: 12/10/18 Internal Medicine - H&P: HPI History of present illness: Mr. Sarmiento is a 78 year old male Internal Medicine - H&P: Meds Oxycodone HCl 5 mg GTUBE Q8H PRN 11/23/18 [History] Promethazine Syrup [Phenergan Syrup] 12.5 mg GTUBE PRN PRN 12/10/18 [History] Allergy/AdvReac Type Severity Reaction Status Date / Time azithromycin Allergy See Verified 12/10/18 14:27 Comments All Systems PM: A 10-system review of systems was performed and is negative for pertinent findings except as documented above in the HPI. - Constitutional Vitals: Temp Pulse Resp BP Pulse Ox 98.8 F 88 15 156/72 100 12/10/18 12:32 12/10/18 15:56 12/10/18 15:56 12/10/18 15:56 12/10/18 15:56 Internal Med - H&P Results - Labs CBC & Chem 7: 12/10/18 12:32 12/10/18 12:32 Labs: Short CBC 12/10/18 Range/Units 12:32 WBC 7.7 (4.3-11.1) K/mcL Hgb 10.3 L (12.9-16.9) g/dL Hct 30.5 L (37.5-50.1) % Plt Count 353 (140-400) K/mcL Neutrophils # 5.9 (1.6-8.9) K/mcL BMP 12/10/18 12:32 Sodium 133 L Potassium 4.4 Chloride 98 Carbon Dioxide 30 H BUN 18 Creatinine 0.69 L Glucose 91 Calcium 8.6 Cardiac Enzymes 12/10/18 Range/Units 12:32 Troponin I < 0.03 (< 0.04) ng/mL - Impressions ITS Impressions Chest X-Ray 12/10/18 12:52 IMPRESSION: No active cardiopulmonary disease D/ / Ryne Roberson MD / Ryne Roberson MD Interpreting Provider: Ryne Roberson MD X-Ray 12/10/18 13:37 IMPRESSION: Nonspecific but nonobstructive bowel gas pattern. No acute abnormalities are seen. D/ / 12/10/2018 13:41:29 Nhan Giang MD / nicole Interpreting Provider: Nhan Giang MD - Time Spent With Patient Total time spent is greater than 50% in coordination of care (as documented) at patient's floor/unit and/or counseling patient: - Attending Attestation The history, physical exam, and medical decision making was performed by the medical student Garza either while I was physically present and actively involved or I personally re-performed the exam and medical decision making. I have verified the accuracy of the medical student's documentation with regards to the history, physical exam findings, and medical decision making. Mr Sarmiento is being observed for weakness and nausea awake, at bedside, later Dr Hoyos to bedside as well. He is fatigued, up all night with dry heaves, currently nausea controlled with phenergan given in ED. Bringing up clear saliva. No hemoptysis. Having mild LUQ pain at home, none currently. He got progressively weaker over last night into today and felt faint. No loc. thin yellow drainage at time around tube. No skin changes. Denies fevers, chills, marshall, vision changes, rash, diarrhea, cough with wheezing or sputum, sick contacts. He has not had bm in five days. gen- alert, awake,appears stated age, fatigued appearing eyes- pupils equal round cv- reg rate and rhythm, normal s1,s2, no murmurs appreciated, HR on tele 80s lungs- ctabl, no wheezing, rhonchi or crackles, norm resp effort on room air abd- soft, non tender, non distended, + bs, j tube in place with thin yellow scant drainage surrounding skin- no erythema or increased warmth surrounding jtube, normal pink tissue surrounding tube neuro- AAOx3, CN grossly intact, strength intact and equal throughout Generalized Weakness suspect 2/2 Chemo + Radiation Rule out infectious process, though at this time no evidence of one, HR was only elevated when nauseated and dry heaving, lactate wnl, wbc wnl, HR and RR normal, afebrile -supportive care, prn anti emetics, prn pain control, IVF hydration, treatment of constipation then resumption of tube feeds, pt/ot -bl cxs pending, ua w reflex to culture pending collection and if not resulted first shift will be signed out to pond scaler to follow, wound cx sent and pending -no leukocytosi, fever or ros indicating infection at this time, appreciate Dr Hoyos eval of tube site and no concern fo rinfection there either, hold further abx, if febrile or UA suspicious empiric abx to be started w broad coverage Nausea likely related to treatment this week -Dr Hoyos following, laxative to alleviate constipation, prn anti emetics 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 at [facility] Onc -will update them he is here, no treatment at this time, was due for chemo today -will need to cont ocnversation re code status, states his living will says DNR but she and pt note he would want to "try" if in the situation resuscitation could help- he is full code at this time Chronic anemia- bl this month 10-12 in setting of chemo + esophageal cancer- cont to monitor vte ppx lovenox <Garza,Loc T - Last Filed: 12/10/18 19:18> Date of Encounter: 12/10/18 Time of Encounter: 03:45 Internal Medicine - H&P: HPI Chief complaint: Weakness Admitted From: Emergency Dept Plans for Post Hospital Care: Home History of present illness: Mr. Sarmiento is a 78 year old male with h/o esophageal adenocarcinoma s/p J tube placement (11/23/18) on chemo (1 dose of chemo) and radiation (round 1), HTN who presented today at the ED for generalized weakness. Patient reported that last night at 8PM at night his had given him a dose of Oxycontin for his abd pain and concern for thin whitish yellow drainage from his J tube site placement. Pt slept 4 hours total with intermittent dry heaving x 3 episodes throughout the night. He woke up at 5AM feeling nauseous with dry heaves and wanted to use the restroom but felt a generalized weakness that if it weren't him holding onto the wheeled walker, he felt as if he was going to fall. He managed to get back into bed and at 8AM his gave him another dose of the Oxycontin and Phenergan for the nausea which did not seem to help, so she and her son called the chemotherapist who recommended that they call the squad team to bring him to the hospital for a full evaluation. At the ED, he reported that he still felt a bit nauseous but denied any vomiting other than his saliva coming back up from the blocked esophagus from the cancer, and he further denied any chest pain, shortness of breath or diarrhea. He did report weakness and reported constipation from not passing his BMs for the past 5 days, denying any current abd pain. At the ED he remained afebrile, but was tachycardic with HR of 116, tachypeneic at 21 and hypertensive with BP of 156/70. His ED labs noted anemia on CBC, CXR showed no acute cardiopulmonary problems, and AXR showed no acute abnormalities. He was given a dose of Rocephin and blood Cx x 2 along with J tube site culture obtained along with UA and culture pending. Past Med Surg Social Fam HX - Past Medical History Medical history: arthritis, cancer, GERD, hypertension, other Additional medical history: Macular degeneration. DDD. Esophageal CA Psychiatric history: no psych history - Past Surgical History Surgical History: cataract, cholecystectomy, herniorrhaphy, other (J tube placement) Additional surgical history: EGD - Social History Smoking Status: Former smoker Smokeless Tobacco Status: No Alcohol use: occasionally Drug use: none Occupational status: retired Current living situation: Home Activity Level: Uses cane/walker - Family History Father Adopted: No Family Member Ethnicity: Non- Twin of Family Member: Yes Living Status: Hx Family Cardiac Disorders: Yes (CHF) Hx Family Respiratory Disorders: Yes Hx Family Cancer: No Hx Family GI Disorders: No Hx Family Endocrine Disorder: No Hx Family Neuromuscular Disorders: No Hx Family Neurologic Disorders: No Hx Family HEENT Disorders: No Hx Family Autoimmune Disorders: No All Systems PM: A 10-system review of systems was performed and is negative for pertinent findings except as documented above in the HPI. - Constitutional Constitutional: fatigue, weakness, weight loss, no chills, no fever(s), no falls, no night sweats - EENT Eyes: no change in vision, no discharge, no pain, no photophobia Nose, mouth and throat: dry mouth - Cardiovascular Cardiovascular ROS IM: no chest pain, no diaphoresis, no edema, no syncope - Respiratory Respiratory: no hemoptysis, no wheezing, no chest congestion - Gastrointestinal Gastrointestinal: constipation, nausea, no diarrhea, no vomiting - Genitourinary Genitourinary ROS male: no difficulty urinating - Musculoskeletal Musculoskeletal ROS IM: muscle weakness - Integumentary Integumentary IM: rash - Neurological Neurological ROS: weakness, no numbness, no paresthesias - Psychiatric Psychiatric: abnormal sleep pattern, no behavioral changes, no confusion - Constitutional Vitals: Temp Pulse Resp BP Pulse Ox 98.8 F 88 15 156/72 100 12/10/18 12:32 12/10/18 15:56 12/10/18 15:56 12/10/18 15:56 12/10/18 15:56 General appearance: Present: A&O X 3, pleasant, no acute distress, answers que stions appropriately Exam: see above - Head Head exam: Present: atraumatic - Eye Eye exam: Present: EOMI, PERRL - Neck Neck exam general surgery: Present: normal inspection, supple, trachea midline - Respiratory Respiratory exam: Present: CTAB. Absent: rales, rhonchi, wheezes - Cardiovascular Cardiovascular exam: Present: +S1, +S2, tachycardia. Absent: diastolic murmur, systolic murmur - GI/Abdominal GI/Abdominal exam: Present: diminished bowel sounds, soft. Absent: distended, firm, guarding, tenderness - Extremities Exam Extremities exam: Present: full ROM, normal inspection, warm. Absent: pedal edema - Neurological Exam Neurological exam: Present: alert, CN II-XII intact, oriented X3, no focal deficits, strengths equal and symetr throughout - Psychiatric Psychiatric exam: Present: normal affect, normal mood Internal Med - H&P Results - Labs CBC & Chem 7: 12/10/18 12:32 12/10/18 12:32 Labs: Short CBC 12/10/18 Range/Units 12:32 WBC 7.7 (4.3-11.1) K/mcL Hgb 10.3 L (12.9-16.9) g/dL Hct 30.5 L (37.5-50.1) % Plt Count 353 (140-400) K/mcL Neutrophils # 5.9 (1.6-8.9) K/mcL BMP 12/10/18 12:32 Sodium 133 L Potassium 4.4 Chloride 98 Carbon Dioxide 30 H BUN 18 Creatinine 0.69 L Glucose 91 Calcium 8.6 Cardiac Enzymes 12/10/18 Range/Units 12:32 Troponin I < 0.03 (< 0.04) ng/mL - Impressions ITS Impressions Chest X-Ray 12/10/18 12:52 IMPRESSION: No active cardiopulmonary disease D/ / Ryne Roberson MD / Ryne Roberson MD Interpreting Provider: Ryne Roberson MD X-Ray 12/10/18 13:37 IMPRESSION: Nonspecific but nonobstructive bowel gas pattern. No acute abnormalities are seen. D/ / 12/10/2018 13:41:29 Nhan Giang MD / nicole Interpreting Provider: Nhan Giang MD - Assessment and Plan (1) Generalized weakness Current Visit: Yes Status: Acute Assessment and plan: -Likely due to combo chemo and radiation therapy / nutrition deficit from J tube feeds / esophageal stricture and blockage / anemia - Ordered CBC, CMP, TSH, - Collected blood Cx x 2, J tube site wound Cx - results pending - Collected UA but reflexed to Cx - results pending - Consulted gas prover to administer J tube feeds - Consulted surgery Dr. Hoyos - Consulted PT/OT - Started D5 1/2 NS IVF running at 100ml/hr (2) SIRS without infection or organ dysfunction Current Visit: Yes Status: Acute Assessment and plan: - likely SIRS as pt was tachypeneic at 21, and tachycardic at 116 but without a focus of infection at this point - ED already gave one dose of Rocephin - Ordered blood Cx x 2, wound Cx of J tube site - pending results - CXR and AXR showed no acute active processes - Ordered UA reflexed to culture - awaiting pending results - We have no reason to believe that there is a focus of infection, but should there be an infection, we will start broad spectrum Abx then (3) Esophageal adenocarcinoma Current Visit: Yes Status: Acute Assessment and plan: Biopsy (11/02/18) showing esophageal adenocarcinoma grade 2 s/p J tube placement (11/23/18) and one round of radiation and one dose of Carboplatin and Taxol - S/p PET scan (11/14/18) showing increased uptake at GE junction with some proximal stomach extension - Consulted surgery - Dr. Hoyos - constipation could be the cause of the patient's abdominal discomfort - Continued home dose of Oxycontin for pain control - Consulted gas prover to administer J tube feeds (4) Nausea Current Visit: Yes Status: Acute Assessment and plan: - Likely due to esophageal stricture from the adenocarcinoma / side effects of chemo and radiation - Continue home dose of phenergan and started zofran PRN nausea - Will monitor electrolytes with repeat CMP (5) Constipation Current Visit: Yes Status: Acute Assessment and plan: - Likely due to the repeated doses of Oxycontin that patient's has been giving him for pain control and likely the cause of nausea the patient has - AXR showed no acute active problems - Consulted surgery - Dr. Hoyos - pt is constipated as patient has not moved his bowels x 5days - Started a half bottle of mag citrate to be given to help with constipation per Dr. Hoyos's recommendations Qualifiers: Constipation type: unspecified constipation type Qualified Code(s): K59.00 - Constipation, unspecified (6) HTN (hypertension) Current Visit: Yes Status: Chronic Assessment and plan: ED BP at 156/70 - likely worse due to pain and nausea and dry heaving - will continue to monitor daily vitals - continue D5 1/2 NS IVF hydration Qualifiers: Hypertension type: essential hypertension Qualified Code(s): I10 - Essential (primary) hypertension (7) Anemia Current Visit: Yes Status: Chronic Assessment and plan: - likely due to anemia of chronic disease from blood loss from esophageal adenocarcinoma - on review of charts, he seems to have a baseline Hb of around 10 - stable and will monitor on repeat CBC Qualifiers: Anemia type: unspecified type Qualified Code(s): D64.9 - Anemia, unspecified (8) Jejunostomy tube present Current Visit: Yes Status: Acute Assessment and plan: - consulted surgery - Dr. Hoyos (9) DVT prophylaxis Current Visit: Yes Status: Acute Assessment and plan: Started SQ Lovenox to prevent DVT and clots which are possible 2/2 underlying hypercoagualability of esophageal adenocarcinoma (10) Code status needs review Current Visit: Yes Status: Acute Assessment and plan: Pt did say that if it is a temporary measure, then to perform CPR, but if it means to be hooked up to machines then to not administer CPR. The patient's also stated that there is a living will that states DNR status, therefore, code status needs to be re-evaluated. Will list full code for now until code status is further clarified. - Time Spent With Patient Total time spent is greater than 50% in coordination of care (as documented) at patient's floor/unit and/or counseling patient: Greater than 35 minutes
[2018-12-10 17:25] LABS: Alanine Aminotransferase 21 Units/L (7-52); Albumin 3.4 g/dL (3.5-5.7); Albumin/Globulin Ratio 1.4 (1.1-2.2); Alkaline Phosphatase 61 Units/L (34-104); Aspartate Amino Transferase 16 Units/L (13-39); Bilirubin,Direct 0.2 mg/dL (0.0-0.2); Bilirubin,Indirect 0.3 mg/dL (0.0-1.2); Bilirubin,Total 0.5 mg/dL (0.3-1.0); Globulin 2.5 g/dL (2.4-3.5); Total Protein 5.9 g/dL (6.4-8.9)
[2018-12-10 17:40] LABS: Bilirubin,Urine Negative (Negative); Blood,Urine Negative (Negative); Clarity,Urine Clear (Clear); Color,Urine Yellow (Yellow); Glucose,Urine (UA) Normal (Normal); Ketones,Urine Negative (Negative); Leukocyte Esterase,Urine Negative (Negative); Nitrite,Urine Negative (Negative); Protein,Urine Negative (Neg-Trace); Specific Gravity,Urine 1.018 (1.010-1.025); Urobilinogen,Urine Normal (Normal)
[2018-12-10] MEDS: *HR* OxyCODONE Immed Rel 5 MG TABLET GTUBE PRN (21:11)
[2018-12-11] MEDS ORDERED: *HR* Enoxaparin 40 MG/0.4 ML SYRINGE SQ SCH (06:00)
[2018-12-11 06:16] LABS: Basophils # 0.1 K/mcL (0.0-0.2); Basophils % 0.7 %; Eosinophils # 0.1 K/mcL (0.0-0.6); Eosinophils % 1.7 %; Hematocrit 27.5 % (37.5-50.1); Hemoglobin 9.2 g/dL (12.9-16.9); Immature Granulocytes % 0.7 % (0-4); Lymphocytes # 0.7 K/mcL (0.6-4.6); Lymphocytes % 8.6 %; Mean Corpuscular HGB Conc 33.5 g/dL (31.6-35.5); Mean Corpuscular Hemoglobin 32.7 pg (28.0-33.3); Mean Corpuscular Volume 97.9 fL (83.0-100.0); Mean Platelet Volume 9.3 fL (9.4-12.4); Monocytes # 1.1 K/mcL (0.0-1.3); Monocytes % 13.7 %; Neutrophils # 5.7 K/mcL (1.6-8.9); Platelet Count 301 K/mcL (140-400); Red Blood Count 2.81 M/mcL (4.19-5.50); Red Cell Distribution Width 11.9 % (11.5-14.5); Segmented Neutrophils % 74.6 %; White Blood Count 7.7 K/mcL (4.3-11.1)
[2018-12-11 06:37] LABS: Alanine Aminotransferase 28 Units/L (7-52); Albumin 3.2 g/dL (3.5-5.7); Albumin/Globulin Ratio 1.3 (1.1-2.2); Alkaline Phosphatase 51 Units/L (34-104); Aspartate Amino Transferase 20 Units/L (13-39); BUN/Creatinine Ratio 23 (6-26); Bilirubin,Total 0.5 mg/dL (0.3-1.0); Blood Urea Nitrogen 16 mg/dL (8-23); Calcium 8.2 mg/dL (8.6-10.3); Carbon Dioxide 27 mEq/L (23-29); Chloride 101 mEq/L (98-107); Globulin 2.5 g/dL (2.4-3.5); Glucose 112 mg/dL (70-105); Osmolality,Calculated 276 (280-300); Phosphorous 3.2 mg/dL (2.7-4.5); Potassium 4.4 mEq/L (3.5-5.1); Sodium 132 mEq/L (136-145); Total Protein 5.7 g/dL (6.4-8.9); eGFR For African Americans > 60 (> 60); eGFR For Non-African Americans > 60 (> 60)
--- NOTE | 2018-12-11 07:26 | Internal Med Progress Note ---
<Ivonne Blank - Last Filed: 12/11/18 12:24> Hospitalist Progress Note - Encounter Date of Encounter: 12/11/18 - Exam Vitals: Temp Pulse Resp BP Pulse Ox 98.4 F 79 15 130/70 95 12/11/18 12:09 12/11/18 12:12/11/18 12:09 12/11/18 12:12/11/18 12:09 - Time Spent with Patient Total time spent is greater than 50% in coordination of care (as documented) at patient's floor/unit and/or counseling patient: Internal Medicine: Result - Labs CBC & Chem 7: 12/11/18 09:53 12/11/18 05:57 Labs: Short CBC 12/10/18 12/11/18 12/11/18 Range/Units 12:32 05:57 09:53 WBC 7.7 7.7 (4.3-11.1) K/mcL Hgb 10.3 L 9.2 L 9.5 L (12.9-16.9) g/dL Hct 30.5 L 27.5 L 27.7 L (37.5-50.1) % Plt Count 353 301 (140-400) K/mcL Neutrophils # 5.9 5.7 (1.6-8.9) K/mcL BMP 12/10/18 12/11/18 12:32 05:57 Sodium 133 L 132 L Potassium 4.4 4.4 Chloride 98 101 Carbon Dioxide 30 H 27 BUN 18 16 Creatinine 0.69 L 0.71 Glucose 91 112 H Calcium 8.6 8.2 L Cardiac Enzymes 12/10/18 Range/Units 12:32 Troponin I < 0.03 (< 0.04) ng/mL Liver Function 12/10/18 12/11/18 Range/Units 12:32 05:57 Total Bilirubin 0.5 0.5 (0.3-1.0) mg/dL Direct Bilirubin 0.2 (0.0-0.2) mg/dL AST 16 20 (13-39) Units/L ALT 21 28 (7-52) Units/L Alkaline Phosphatase 61 51 (34-104) Units/L Albumin 3.4 L 3.2 L (3.5-5.7) g/dL Urine 12/10/18 Range/Units 17:12 Urine Color Yellow (Yellow) Urine Clarity Clear (Clear) Urine pH 7.0 (5.0-8.0) pH Units Ur Specific Selmer 1.018 (1.010-1.025) Urine Protein Negative (Neg-Trace) mg/dL Urine Glucose (UA) Normal (Normal) mg/dL - Impressions Impressions Chest X-Ray 12/10/18 12:52 IMPRESSION: No active cardiopulmonary disease D/ / Ryne Roberson MD / Ryne Roberson MD Interpreting Provider: Ryen Roberson MD X-Ray 12/10/18 13:37 IMPRESSION: Nonspecific but nonobstructive bowel gas pattern. No acute abnormalities are seen. D/ / 12/10/2018 13:41:29 Nhan Giang MD / nicole Interpreting Provider: Nhan Giang MD Consult Discharge Plan - Plan [facility]errals: [facility] [Primary Care Provider] - - Attending Attestation The history, physical exam, and medical decision making was performed by the medical student Garza either while I was physically present and actively involved or I personally re-performed the exam and medical decision making. I have verified the accuracy of the medical student's documentation with regards to the history, physical exam findings, and medical decision making. Mr Sarmiento is being observed for weakness and nausea awake, no family at bedside, cont nausea, didn't ask for prns. cont saliva with dry heaving. abd pain improved. further bm this morning. gen- alert, awake,appears stated age cv- reg rate and rhythm, normal s1,s2, no murmurs appreciated lungs- ctabl, no wheezing, rhonchi or crackles, norm resp effort on room air abd- soft, non tender, non distended, + bs, j tube in place neuro- AAOx3 Generalized Weakness suspect 2/2 Chemo + Radiation Ruling out infectious process, though at this time no evidence of one, stable without abx -change phenergan to standing as he isn't reliably asking for it, zofran prn breakthrough, scopalamine patch -home prn pain control -resume tube feeds now that he has resolved constipation -bl cxs pending, ua unremarkable, wound cx pending -appreciate surg input Nausea likely related to treatment this week -Dr Hoyos following, laxative to alleviate constipation, prn anti emetics as above 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 at [facility] Onc -will need to cont conversation re code status, states his living will says DNR but she and pt note this admission he would want to "try" if in the situation resuscitation could help- he is full code at this time vte ppx lovenox <Garza,Loc T - Last Filed: 12/11/18 16:38> Hospitalist Progress Note - Encounter Date of Encounter: 12/11/18 Time of Encounter: 07:26 - Subjective Interval History: Pt is a 78 yo male patient with h/o esophageal adenocarcinoma s/p J tube placement (11/23/18) on chemo (1 dose of chemo) and radiation (round 1), HTN who presented today at the ED for generalized weakness Pt was seen this morning who was seen laying awake in bed in no apparent distress. Pt reported that he did vomit up some of his saliva twice last night but was able to sleep. He still reported that he is still nauseous with intermittent dry heaving. He did report that he passed his bowels twice this morning and states "I am all cleared out." He described liquid stools with chunks and denies any blood or mucus with his BMs. He stated he feels "str onger" today compared to yesterday. He denies any chest pain, shortness of breath, chills, fever, night sweats. He reported that cardiology came by to see him this morning and stated that they will start a scopolamine patch to help reduce his saliva and oral secretions. He is still awaiting for nutrition to start administering some tube feeds for him today. - Exam Vitals: Temp Pulse Resp BP Pulse Ox 98.3 F 75 14 150/74 96 12/11/18 07:01 12/11/18 07:01 12/11/18 07:01 12/11/18 07:01 12/11/18 07:01 Exam: General: Patient was seen laying awake in bed on the phone with his in no apparent distress. He was alert and followed commands and answered all questions. Heart: RRR, no murmurs, rubs or gallops Lungs: CTA bilaterally with no wheezing, rales, or rhonchi Abd: Normal active bowel sounds of all abdominal quadrants, soft, non distended, non tender to palpation x 4 quadrants, J tube in place with placement site dry, clean and intact Ext: No LE edema - Assessment and Plan (1) Generalized weakness Current Visit: Yes Status: Acute Assessment and Plan: - Seems to be improving today on history and exam. - Is able to use the restroom to move his bowels without feeling weakness like randa hurtado did on admission - Will continue to monitor and assess for further weakness (2) SIRS without infection or organ dysfunction Current Visit: Yes Status: Acute Assessment and Plan: - likely SIRS as pt was tachypeneic at 21, and tachycardic at 116 but without a focus of infection at this point - Ordered blood Cx x 2 - pending results - Wound culture - preliminary results shows Gr negative rods on gram staining - will hold of treating until sensitivities come back - CXR and AXR showed no acute active processes - Ordered UA reflexed to culture - awaiting pending results - We have no reason to believe that there is a focus of infection, but should there be an infection, we will start broad spectrum Abx then (3) Esophageal adenocarcinoma Current Visit: Yes Status: Acute Assessment and Plan: - Surgery - Dr. Hoyos on board and believes that his esophageal adenocarcinoma may have been inflamed and aggravated due to recent radiation and chemo and recommended to resume tube feeds after clearing out his constipation. Surgery does not believe the site of the J tube placement is infected. (4) Nausea Current Visit: Yes Status: Acute Assessment and Plan: - Likely due to the constipation pt had for 5 days - now resolved with half bottle of mag citrate, and also due to inflamed esophageal adenocarcinoma from radiation and chemo - Surgery started a scopolamine patch to help reduce saliva and oral secretions - Have scheduled his Phenergan for nausea control and have Zofran on board for breakthrough nausea (5) Constipation Current Visit: Yes Status: Acute Assessment and Plan: - Resolved with half a bottle of mag citrate that has cleared out his bowels per patient - Surgery has started Miralax scheduled for regulation of BMs (6) HTN (hypertension) Current Visit: Yes Status: Chronic Assessment and Plan: - Stable for now, and will continue to monitor for changes (7) Anemia Current Visit: Yes Status: Chronic Assessment and Plan: - Likely secondary to the esophageal adenocarcinoma - Pt remains asymptomatic - Has down trended a bit today Hb at 9.2 and Hct at 27.5 which is down from yesterday at Hb of 10.3 and Hct of 36.5 - Will continue to trend and monitor on repeat CBC (8) Jejunostomy tube present Current Visit: Yes Status: Acute (9) DVT prophylaxis Current Visit: Yes Status: Acute Assessment and Plan: - Lovenox 40mg SQ Qday for DVT ppx (10) Code status needs review Current Visit: Yes Status: Acute - Time Spent with Patient Total time spent is greater than 50% in coordination of care (as documented) at patient's floor/unit and/or counseling patient: Greater than 35 minutes Internal Medicine: Result - Labs CBC & Chem 7: 12/11/18 09:53 12/11/18 05:57 Labs: Short CBC 12/10/18 12/11/18 Range/Units 12:32 05:57 WBC 7.7 7.7 (4.3-11.1) K/mcL Hgb 10.3 L 9.2 L (12.9-16.9) g/dL Hct 30.5 L 27.5 L (37.5-50.1) % Plt Count 353 301 (140-400) K/mcL Neutrophils # 5.9 5.7 (1.6-8.9) K/mcL BMP 12/10/18 12/11/18 12:32 05:57 Sodium 133 L 132 L Potassium 4.4 4.4 Chloride 98 101 Carbon Dioxide 30 H 27 BUN 18 16 Creatinine 0.69 L 0.71 Glucose 91 112 H Calcium 8.6 8.2 L Cardiac Enzymes 12/10/18 Range/Units 12:32 Troponin I < 0.03 (< 0.04) ng/mL Liver Function 12/10/18 12/11/18 Range/Units 12:32 05:57 Total Bilirubin 0.5 0.5 (0.3-1.0) mg/dL Direct Bilirubin 0.2 (0.0-0.2) mg/dL AST 16 20 (13-39) Units/L ALT 21 28 (7-52) Units/L Alkaline Phosphatase 61 51 (34-104) Units/L Albumin 3.4 L 3.2 L (3.5-5.7) g/dL Urine 12/10/18 Range/Units 17:12 Urine Color Yellow (Yellow) Urine Clarity Clear (Clear) Urine pH 7.0 (5.0-8.0) pH Units Ur Specific Selmer 1.018 (1.010-1.025) Urine Protein Negative (Neg-Trace) mg/dL Urine Glucose (UA) Normal (Normal) mg/dL - Impressions Impressions Chest X-Ray 12/10/18 12:52 IMPRESSION: No active cardiopulmonary disease D/ / Ryne Roberson MD / Ryne Roberson MD Interpreting Provider: Ryne Roberson MD X-Ray 12/10/18 13:37 IMPRESSION: Nonspecific but nonobstructive bowel gas pattern. No acute abnormalities are seen. D/ / 12/10/2018 13:41:29 Nhan Giang MD / nicole Interpreting Provider: Nhan Giang MD <Garza,Loc T - Last Filed: 12/11/18 16:38> (5) Constipation Qualifiers: Constipation type: unspecified constipation type Qualified Code(s): K59.00 - Constipation, unspecified (6) HTN (hypertension) Qualifiers: Hypertension type: essential hypertension Qualified Code(s): I10 - Essential (primary) hypertension (7) Anemia Qualifiers: Anemia type: unspecified type Qualified Code(s): D64.9 - Anemia, unspecified
[2018-12-11] MEDS ORDERED: Scopolamine Patch 1.5 MG PATCH.TD72 TD SCH (09:00)
--- NOTE | 2018-12-11 09:55 | Electrocardiograph Report ---
[facility] Test Date: 2018-12-10 Pat Name: Ck Sarmiento Department: [id number] Room: 3A47 Gender: M [employer]: : 1940 Requested By: Joe Metz Order Number: [id number] Reading MD: Samuel Mayo Measurements Intervals Rosamond Rate: 80 P: 2 DE: 149 QRS: 71 QRSD: 77 T: 68 QT: 355 QTc: 410 Interpretive Statements Sinus rhythm Electronically Signed On 12-11-2018 9:53:32 EDT by Samuel Mayo
[2018-12-11 10:10] LABS: Hematocrit 27.7 % (37.5-50.1); Hemoglobin 9.5 g/dL (12.9-16.9)
--- NOTE | 2018-12-11 11:14 | AcuteCareSurgery Progress Note ---
<Suzy Monterroso - Last Filed: 12/11/18 11:11> Date of Encounter: 12/11/18 Time of Encounter: 08:00 - Assessment and Plan (1) Constipation Current Visit: Yes Status: Acute Pt has had multiple bowel movements. States pain resolved. Add miralax BID until daily BMs that area mashed potatoes consistency. Then decrease and maintain daily unless having diarrhea. Resume TF as previously tolerating. Titrate per nutrition He is ok to d/c from a surgical perceptive if having BMs. Added scopolamine patch which can be continued at d/c if needed Qualifiers: Constipation type: unspecified constipation type Qualified Code(s): K59.00 - Constipation, unspecified (2) S/P jejunostomy Current Visit: Yes Status: Chronic J-tube secured. Small amount of mucoid drainage noted. There is no evidence for concern of infection. Patent. Do not aspirate/check residuals in a J-tube TF as previously toerlated per nutrition Free water as recommended per nutrition Flush with 50 Ml of water after all medications. No crushed pills should be used in J-tube. If pills are necessary, they mush be crushed and left in water until completely dissolved. (3) Esophageal cancer Current Visit: No Status: Chronic Qualifiers: Malignant neoplasm of esophagus location: lower third Qualified Code(s): C15.5 - Malignant neoplasm of lower third of esophagus Subjective Patient reports: no new complaints, feels better, pain is less, voiding w/o difficulty, flatus, bowel movement, nausea, afebrile Objective Vital Signs - Last 8 Hours Temp Pulse Resp BP Pulse Ox 12/11/18 07:01 98.3 F 75 14 150/74 96 12/11/18 03:45 98.4 F 85 14 146/77 97 Intake and Output 12/10/18 12/11/18 12/11/18 23:59 07:59 15:59 Intake Total 0 / 1010 0 / 0 Output Total 0 / 0 Balance 0 / 1010 0 / 0 Intake: Oral 0 / 0 0 / 0 Output: Urine 0 / 0 Other: Stool Size Large Stool Consistency loose liquid # Voids 1 # Bowel Movements 1 Weight 68.4 kg Blood Glucose* 119 Patient Weight 12/11/18 23:59 Weight 68.4 kg - General physical appearance no distress - ENT atraumatic, normocephalic - Abdomen Abdomen: Present: bowel sounds present, soft, non tender Additional Comments: J-tube secured. Small amount of mucoid drainage noted. Patent. - Musculoskeletal normal posture - Psychiatric oriented to time, oriented to person, oriented to place, speech is normal, memory intact - Labs 12/11/18 09:53 12/11/18 05:57 Diabetes panel 12/10/18 12/11/18 Range/Units 12:32 05:57 Sodium 133 L 132 L (136-145) mEq/L Potassium 4.4 4.4 (3.5-5.1) mEq/L Chloride 98 101 (98-107) mEq/L Carbon Dioxide 30 H 27 (23-29) mEq/L BUN 18 16 (8-23) mg/dL Creatinine 0.69 L 0.71 (0.70-1.30) mg/dL Glucose 91 112 H (70-105) mg/dL Calcium 8.6 8.2 L (8.6-10.3) mg/dL AST 16 20 (13-39) Units/L ALT 21 28 (7-52) Units/L Alkaline Phosphatase 61 51 (34-104) Units/L Albumin 3.4 L 3.2 L (3.5-5.7) g/dL Thyroid panel 12/10/18 Range/Units 12:32 TSH 1.530 (0.340-5.600) mcIU/mL Calcium panel 12/10/18 12/11/18 Range/Units 12:32 05:57 Calcium 8.6 8.2 L (8.6-10.3) mg/dL Phosphorus 3.6 3.2 (2.7-4.5) mg/dL Albumin 3.4 L 3.2 L (3.5-5.7) g/dL Pituitary panel 12/10/18 12/11/18 Range/Units 12:32 05:57 Sodium 133 L 132 L (136-145) mEq/L Potassium 4.4 4.4 (3.5-5.1) mEq/L Chloride 98 101 (98-107) mEq/L Carbon Dioxide 30 H 27 (23-29) mEq/L BUN 18 16 (8-23) mg/dL Creatinine 0.69 L 0.71 (0.70-1.30) mg/dL Glucose 91 112 H (70-105) mg/dL Calcium 8.6 8.2 L (8.6-10.3) mg/dL TSH 1.530 (0.340-5.600) mcIU/mL Adrenal panel 12/10/18 12/11/18 Range/Units 12:32 05:57 Sodium 133 L 132 L (136-145) mEq/L Potassium 4.4 4.4 (3.5-5.1) mEq/L Chloride 98 101 (98-107) mEq/L Carbon Dioxide 30 H 27 (23-29) mEq/L BUN 18 16 (8-23) mg/dL Creatinine 0.69 L 0.71 (0.70-1.30) mg/dL Glucose 91 112 H (70-105) mg/dL Calcium 8.6 8.2 L (8.6-10.3) mg/dL Total Bilirubin 0.5 0.5 (0.3-1.0) mg/dL AST 16 20 (13-39) Units/L ALT 21 28 (7-52) Units/L Alkaline Phosphatase 61 51 (34-104) Units/L Albumin 3.4 L 3.2 L (3.5-5.7) g/dL Consult Discharge Plan - Plan Referrals: [facility] [Primary Care Provider] - <Tamra Louis - Last Filed: 12/11/18 11:42> Date of Encounter: 12/11/18 Objective Vital Signs - Last 8 Hours Temp Pulse Resp BP Pulse Ox 12/11/18 07:01 98.3 F 75 14 150/74 96 12/11/18 03:45 98.4 F 85 14 146/77 97 Intake and Output 12/10/18 12/11/18 12/11/18 23:59 07:59 15:59 Intake Total 0 / 1010 0 / 0 Output Total 0 / 0 Balance 0 / 1010 0 / 0 Intake: Oral 0 / 0 0 / 0 Output: Urine 0 / 0 Other: Stool Size Large Stool Consistency loose liquid # Voids 1 # Bowel Movements 1 Weight 68.4 kg Blood Glucose* 119 Patient Weight 12/11/18 23:59 Weight 68.4 kg - Labs 12/11/18 09:53 12/11/18 05:57 Diabetes panel 12/10/18 12/11/18 Range/Units 12:32 05:57 Sodium 133 L 132 L (136-145) mEq/L Potassium 4.4 4.4 (3.5-5.1) mEq/L Chloride 98 101 (98-107) mEq/L Carbon Dioxide 30 H 27 (23-29) mEq/L BUN 18 16 (8-23) mg/dL Creatinine 0.69 L 0.71 (0.70-1.30) mg/dL Glucose 91 112 H (70-105) mg/dL Calcium 8.6 8.2 L (8.6-10.3) mg/dL AST 16 20 (13-39) Units/L ALT 21 28 (7-52) Units/L Alkaline Phosphatase 61 51 (34-104) Units/L Albumin 3.4 L 3.2 L (3.5-5.7) g/dL Thyroid panel 12/10/18 Range/Units 12:32 TSH 1.530 (0.340-5.600) mcIU/mL Calcium panel 12/10/18 12/11/18 Range/Units 12:32 05:57 Calcium 8.6 8.2 L (8.6-10.3) mg/dL Phosphorus 3.6 3.2 (2.7-4.5) mg/dL Albumin 3.4 L 3.2 L (3.5-5.7) g/dL Pituitary panel 12/10/18 12/11/18 Range/Units 12:32 05:57 Sodium 133 L 132 L (136-145) mEq/L Potassium 4.4 4.4 (3.5-5.1) mEq/L Chloride 98 101 (98-107) mEq/L Carbon Dioxide 30 H 27 (23-29) mEq/L BUN 18 16 (8-23) mg/dL Creatinine 0.69 L 0.71 (0.70-1.30) mg/dL Glucose 91 112 H (70-105) mg/dL Calcium 8.6 8.2 L (8.6-10.3) mg/dL TSH 1.530 (0.340-5.600) mcIU/mL Adrenal panel 12/10/18 12/11/18 Range/Units 12:32 05:57 Sodium 133 L 132 L (136-145) mEq/L Potassium 4.4 4.4 (3.5-5.1) mEq/L Chloride 98 101 (98-107) mEq/L Carbon Dioxide 30 H 27 (23-29) mEq/L BUN 18 16 (8-23) mg/dL Creatinine 0.69 L 0.71 (0.70-1.30) mg/dL Glucose 91 112 H (70-105) mg/dL Calcium 8.6 8.2 L (8.6-10.3) mg/dL Total Bilirubin 0.5 0.5 (0.3-1.0) mg/dL AST 16 20 (13-39) Units/L ALT 21 28 (7-52) Units/L Alkaline Phosphatase 61 51 (34-104) Units/L Albumin 3.4 L 3.2 L (3.5-5.7) g/dL - Attending Attestation I examined this patient and my medical decision-making was reviewed with the MUSEUM OR ZOO DIRECTOR. I agree with the documented findings, disposition and treatment plan as described to the extent set forth below. Pt reports BM. Obstipation is resolved. May resume TF. Continue current J-tube care. Increase activity. Will follow.
[2018-12-11] MEDS: Promethazine Syrup 6.25 MG/5 ML GTUBE SCH ×3 (14:54→22:48)
[2018-12-11] MEDS: *HR* OxyCODONE Immed Rel 5 MG TABLET GTUBE PRN (17:28)
[2018-12-12 06:05] LABS: Basophils % 0.5 %; Eosinophils # 0.2 K/mcL (0.0-0.6); Eosinophils % 3.2 %; Hematocrit 26.9 % (37.5-50.1); Hemoglobin 9.2 g/dL (12.9-16.9); Immature Granulocytes % 0.8 % (0-4); Lymphocytes # 0.6 K/mcL (0.6-4.6); Lymphocytes % 9.5 %; Mean Corpuscular HGB Conc 34.2 g/dL (31.6-35.5); Mean Corpuscular Volume 96.4 fL (83.0-100.0); Mean Platelet Volume 9.1 fL (9.4-12.4); Monocytes # 0.8 K/mcL (0.0-1.3); Neutrophils # 4.3 K/mcL (1.6-8.9); Platelet Count 277 K/mcL (140-400); Red Blood Count 2.79 M/mcL (4.19-5.50); Red Cell Distribution Width 11.8 % (11.5-14.5)
[2018-12-12 06:27] LABS: BUN/Creatinine Ratio 22 (6-26); Blood Urea Nitrogen 14 mg/dL (8-23); Calcium 8.2 mg/dL (8.6-10.3); Carbon Dioxide 25 mEq/L (23-29); Chloride 101 mEq/L (98-107); Glucose 113 mg/dL (70-105); Osmolality,Calculated 277 (280-300); Potassium 4.1 mEq/L (3.5-5.1); Sodium 133 mEq/L (136-145); eGFR For African Americans > 60 (> 60); eGFR For Non-African Americans > 60 (> 60)
[2018-12-12 07:23] LABS: Platelet Estimate Normal (Normal)
--- NOTE | 2018-12-12 08:46 | Internal Med Progress Note ---
<Garza,Loc T - Last Filed: 12/12/18 17:16> Hospitalist Progress Note - Encounter Date of Encounter: 12/12/18 Time of Encounter: 08:45 - Subjective Interval History: Pt was seen today this morning laying in bed awake. When approached today, he stated that he did not feel well and is having a "bad day today and I do not want to talk to anybody right now, so leave me alone." He did not want to discuss anything and even declined any physical exam this morning. Upon talking to his nurse, she states that he seems annoyed and that he made a statement after talking with both Dr. 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 - Exam Vitals: Temp Pulse Resp BP Pulse Ox 98.6 F 17 76 146/73 97 12/12/18 06:55 12/12/18 06:55 12/12/18 06:55 12/12/18 06:55 12/12/18 06:55 Exam: Physical exam was not done or performed today because the patient had declined any physical exam to be done and did not want to talk to anybody today. - Assessment and Plan (1) Generalized weakness Current Visit: Yes Status: Acute Assessment and Plan: - Likely due to the nutrition deficit from inadequate tube feeds - Pt was seen by the corporate communications associate yesterday and this morning at 3AM was started 30ml of tube feeds per J tube to be increased 10ml every 6 hours to reach goal of 80ml of tube feeds daily. - Will continue the tube feeds to improve weakness from a nutritional standpoint (2) SIRS without infection or organ dysfunction Current Visit: Yes Status: Acute Assessment and Plan: - Pt was stable today with HR of 76 and RR of 17 and remained afebrile throughout the hospital course - Wound site culture of his J tube placement did show growth of Klebsiella Aerogenes that is handy sensitive except to Augmentin or Cefazolin - Still holding off antibiotic treatment of the wound culture as the patient remains afebrile without leukocytosis and Surgery on board stating that the site is not infected and the site is clean and dry (3) Esophageal adenocarcinoma Current Visit: Yes Status: Chronic Assessment and Plan: - Pt has esophageal adenocarcinoma s/p one round of chemo and radiation therapy - Surgery - Dr. Hoyos on board recommending that his J tube site placement is not infected and to resume tube feeds as tolerated and to not aspirate or check for residuals - Per surgery, started on scheduled Miralax to help with the constipation likely caused by the opioid pain meds - Scopolamine patch to help reduce oral secretions and saliva patient seems to be vomiting and dry heaving from it (4) Nausea Current Visit: Yes Status: Acute Assessment and Plan: - Seems to be likely 2/2 to the dry heaving and vomiting from the oral secretions and from the esophageal adenocarcinoma mass and from the constipation that he presented with on admission - Miralax to help alleviate constipation and scopolamine patch to alleviate oral secretions (5) Constipation Current Visit: Yes Status: Resolved Assessment and Plan: - Patient is no longer constipated given the half bottle of mag citrate that seemed to "clear him out" - Miralax scheduled for consitpation relief from pain meds (6) HTN (hypertension) Current Visit: Yes Status: Chronic Assessment and Plan: Stable and to continue current meds and treatment (7) Anemia Current Visit: Yes Status: Chronic Assessment and Plan: - Has been don trending today at Hb 9.2 and Hct at 26.9 - Seems to be chronically anemic and likely from the esophageal adenocarcinoma - Will continue to trend and monitor with repeat CBCs (8) Jejunostomy tube present Current Visit: Yes Status: Acute Assessment and Plan: J tube in place and tube feeds started by corporate communications associate per their recommendations (9) DVT prophylaxis Current Visit: Yes Status: Acute Assessment and Plan: Bilateral SCDs ordered for DVT ppx (10) Code status needs review Current Visit: Yes Status: Acute - Time Spent with Patient Total time spent is greater than 50% in coordination of care (as documented) at patient's floor/unit and/or counseling patient: Internal Medicine: Result - Labs CBC & Chem 7: 12/12/18 05:37 12/12/18 05:37 Labs: Short CBC 12/11/18 12/12/18 Range/Units 09:53 05:37 WBC 6.0 (4.3-11.1) K/mcL Hgb 9.5 L 9.2 L (12.9-16.9) g/dL Hct 27.7 L 26.9 L (37.5-50.1) % Plt Count 277 (140-400) K/mcL Neutrophils # 4.3 (1.6-8.9) K/mcL BMP 12/12/18 05:37 Sodium 133 L Potassium 4.1 Chloride 101 Carbon Dioxide 25 BUN 14 Creatinine 0.64 L Glucose 113 H Calcium 8.2 L Consult Discharge Plan - Plan [facility]errals: [facility] [Primary Care Provider[facility] - <Quirino Haider - Last Filed: 12/12/18 17:39> Hospitalist Progress Note - Encounter Date of Encounter: 12/12/18 - Exam Vitals: Temp Pulse Resp BP Pulse Ox 97.8 F 68 16 133/69 98 12/12/18 14:45 12/12/18 14:45 12/12/18 14:45 12/12/18 14:45 12/12/18 14:45 - Assessment and Plan (1) Constipation due to opioid therapy Current Visit: Yes Status: Acute (2) Nausea Current Visit: Yes Status: Acute (3) Esophageal adenocarcinoma Current Visit: Yes Status: Chronic (4) HTN (hypertension) Current Visit: Yes Status: Chronic (5) Protein-calorie malnutrition, severe Current Visit: No Status: Suspected - Time Spent with Patient Total time spent is greater than 50% in coordination of care (as documented) at patient's floor/unit and/or counseling patient: Internal Medicine: Result - Labs CBC & Chem 7: 12/12/18 05:37 12/12/18 05:37 Labs: Short CBC 12/12/18 Range/Units 05:37 WBC 6.0 (4.3-11.1) K/mcL Hgb 9.2 L (12.9-16.9) g/dL Hct 26.9 L (37.5-50.1) % Plt Count 277 (140-400) K/mcL Neutrophils # 4.3 (1.6-8.9) K/mcL BMP 12/12/18 05:37 Sodium 133 L Potassium 4.1 Chloride 101 Carbon Dioxide 25 BUN 14 Creatinine 0.64 L Glucose 113 H Calcium 8.2 L - Attending Attestation The history, physical exam, and medical decision making was performed by the medical student either while I was physically present and actively involved or I personally re-performed the exam and medical decision making. I have verified the accuracy of the medical student's documentation with regards to the history, physical exam findings, and medical decision making on 12/12/18. Mr Sarmiento is currently admitted for nausea/ vomiting related esophageal carcinoma. He remains moderate to high risk due to potential for worsening clinical status. Mr Sarmiento is very frustrated. He wants to go home. He is very tired and still nauseous at times. Tolerating tube feed at this rate. Exam Alert. Comfortable at this time. NC. EOMI. Mucus membranes dry. Neck supple. Heart reg and not tachy. No wheeze. Abd soft. No edema. Moves all extremities. No rash. I/P 1. Nausea due to esophageal carcinoma - improving 2. Constipation resolved 3. HTN - controlled. Further diagnoses and plan as above. <Garza,Loc T - Last Filed: 12/12/18 17:16> (5) Constipation Qualifiers: Constipation type: unspecified constipation type Qualified Code(s): K59.00 - Constipation, unspecified (6) HTN (hypertension) Qualifiers: Hypertension type: essential hypertension Qualified Code(s): I10 - Essential (primary) hypertension (7) Anemia Qualifiers: Anemia type: unspecified type Qualified Code(s): D64.9 - Anemia, unspecified <Quirino Haider - Last Filed: 12/12/18 17:39> (4) HTN (hypertension) Qualifiers: Hypertension type: essential hypertension Qualified Code(s): I10 - Essential (primary) hypertension
[2018-12-12] MEDS: *HR* OxyCODONE Immed Rel 5 MG TABLET GTUBE PRN (09:03)
--- NOTE | 2018-12-12 11:05 | AcuteCareSurgery Progress Note ---
Date of Encounter: 12/12/18 Time of Encounter: 11:04 - Assessment and Plan (1) Constipation Current Visit: Yes Status: Acute I agree with the previous evaluation of the patient's constipation may be more related to his chemotherapy treatments. J-tube feeds have been restarted and are currently of 40 mL an hour and will be increased 10 mL an hour every 6 hours to goal. If he continues to tolerate then likely discharge home within the next 24 hours. Qualifiers: Constipation type: unspecified constipation type Qualified Code(s): K59.00 - Constipation, unspecified Subjective Patient reports: no new complaints (Patient states that he has a heaviness f eeling in his abdomen. Does not state she has nausea.) Objective Vital Signs - Last 8 Hours Temp Pulse Resp BP Pulse Ox 12/12/18 10:41 98.7 F 65 16 139/71 97 12/12/18 10:38 98.7 F 65 12/12/18 06:55 98.6 F 76 17 146/73 97 12/12/18 04:17 98.3 F 76 15 145/71 97 Intake and Output 12/11/18 12/12/18 12/12/18 23:59 07:59 15:59 Intake Total 400 / 500 300 / 300 Output Total 0 / 0 300 / 300 Balance 400 / 500 0 / 0 Intake: Oral 0 / 0 0 / 0 Free Water Intake Amount 400 / 500 300 / 300 Output: Urine 0 / 0 300 / 300 Other: # Voids 1 2 Weight 68.5 kg Blood Glucose* 101 108 Patient Weight 12/12/18 23:59 Weight 68.5 kg - General physical appearance well nourished, no distress - Abdomen Abdomen: Present: soft (Jtub in place.) - Labs 12/12/18 05:37 12/12/18 05:37 Diabetes panel 12/12/18 Range/Units 05:37 Sodium 133 L (136-145) mEq/L Potassium 4.1 (3.5-5.1) mEq/L Chloride 101 (98-107) mEq/L Carbon Dioxide 25 (23-29) mEq/L BUN 14 (8-23) mg/dL Creatinine 0.64 L (0.70-1.30) mg/dL Glucose 113 H (70-105) mg/dL Calcium 8.2 L (8.6-10.3) mg/dL Calcium panel 12/12/18 Range/Units 05:37 Calcium 8.2 L (8.6-10.3) mg/dL Pituitary panel 12/12/18 Range/Units 05:37 Sodium 133 L (136-145) mEq/L Potassium 4.1 (3.5-5.1) mEq/L Chloride 101 (98-107) mEq/L Carbon Dioxide 25 (23-29) mEq/L BUN 14 (8-23) mg/dL Creatinine 0.64 L (0.70-1.30) mg/dL Glucose 113 H (70-105) mg/dL Calcium 8.2 L (8.6-10.3) mg/dL Adrenal panel 12/12/18 Range/Units 05:37 Sodium 133 L (136-145) mEq/L Potassium 4.1 (3.5-5.1) mEq/L Chloride 101 (98-107) mEq/L Carbon Dioxide 25 (23-29) mEq/L BUN 14 (8-23) mg/dL Creatinine 0.64 L (0.70-1.30) mg/dL Glucose 113 H (70-105) mg/dL Calcium 8.2 L (8.6-10.3) mg/dL Consult Discharge Plan - Plan [facility]errals: [facility] [Primary Care Provider] -
[2018-12-12] MEDS: Promethazine Syrup 6.25 MG/5 ML GTUBE SCH ×4 (11:42→21:42)
[2018-12-12] MEDS ORDERED: Ibuprofen 200 MG TABLET PO PRN (12:05)
[2018-12-12] MEDS: Ibuprofen 400 MG TABLET PO PRN ×2 (14:59→21:41)
[2018-12-12] MEDS ORDERED: Potassium Chloride Elixir 20 MEQ/15 ML UDC GTUBE ONE (18:27)
[2018-12-13] MEDS: Promethazine Syrup 6.25 MG/5 ML GTUBE SCH (05:31)
--- NOTE | 2018-12-13 07:54 | Discharge Summary ---
- NOTES TO OUTPATIENT PROVIDER Notes to Outpatient Provider: Presented with weakness and nausea. Constipated. Improved and restarted on tube feeds. No infection found. To follow up with heme/onc and surgery. Orders not resulted at time of discharge: Pending orders 12/10/18 14:05 Culture,Blood [BC] Stat Date of Encounter: 12/13/18 Time of Encounter: 08:15 - Discharge Diagnosis (1) Constipation due to opioid therapy Priority: Primary Status: Resolved (2) Nausea Priority: Secondary Status: Chronic (3) Esophageal adenocarcinoma Priority: Secondary Status: Chronic (4) HTN (hypertension) Priority: Secondary Status: Chronic Qualifiers: Hypertension type: essential hypertension Qualified Code(s): I10 - Essential (primary) hypertension (5) Protein-calorie malnutrition, severe Priority: Secondary Status: Suspected Hospital course: Mr. Sarmiento is a 78 year old male with hx of obstructive esophageal adenocarcinoma presented to ED with weakness and persistent nausea. Mr Sarmiento presented with weakness and nausea. No fever or chills. He was placed in the hospital and started on IV fluids. He was given antiemetics. He was found to be constipated and this was treated and improved. He was seen by surgical service and restarted on tube feeds which was slowly increased to goal rate. No infection was found. Today he is feeling OK. No fever or chills. He is tolerating tube feeds. Bowels are moving. He has been seen and cleared by surgery today. He is ready for discharge home. Discharge discussed with: patient - Time Spent with Patient Total time spent providing and/or coordinating discharge services: 41min - Discharge Medications Prescriptions: New Polyethylene Glycol 3350 [MiraLAX] 17 gm GTUBE BID powd.pack Ibuprofen [Motrin] 200 mg PO Q4HR PRN tablet PRN Reason: Fever/Pain Scopolamine Patch [Transderm-Scop] 1.5 mg TD Q72H PRN #10 patch.td72 PRN Reason: Nausea And Vomiting Continued Oxycodone HCl 5 mg GTUBE Q8H PRN PRN Reason: Pain Promethazine Syrup [Phenergan Syrup] 12.5 mg GTUBE Q6H PRN PRN Reason: Nausea Home Medications: Oxycodone HCl 5 mg GTUBE Q8H PRN 11/23/18 [History] Promethazine Syrup [Phenergan Syrup] 12.5 mg GTUBE Q6H PRN 12/10/18 [History] Ibuprofen [Motrin] 200 mg PO Q4HR PRN tablet 12/13/18 [Rx] Polyethylene Glycol 3350 [MiraLAX] 17 gm GTUBE BID powd.pack 12/13/18 [Rx] Scopolamine Patch [Transderm-Scop] 1.5 mg TD Q72H PRN #10 patch.td72 12/13/18 [Rx] Allergies/Adverse Reactions: Allergy/AdvReac Type Severity Reaction Status Date / Time azithromycin Allergy See Verified 12/10/18 21:20 Comments Date of admission: 12/11/18 12:00 [facility] care physician: [facility] Consults: 12/10/18 16:35 Consult to Surgery [CONS] Routine Consulting Provider: Acute Care Surgery Reason for Consult: Recent open jejunostomy, now having nausea and vomiting with weakness. Complaint of drainage around wound site. Call Completed: Yes 12/10/18 16:59 Consult to Occupational Therapy [CONS] Routine Comment: Evaluate, develop and implement POC Reason for Consult: Generalized weakness Does patient have active BEDREST order?: No Is patient medically & hemodynamically stable?: Yes Consult to Physical Therapy [CONS] Routine Comment: Evaluate, develop and implement POC Reason for Consult: generalized weakness Does patient have active BEDREST order?: No Is patient medically & hemodynamically stable?: Yes 12/10/18 17:01 Consult to Nutrition [CONS] Routine Comment: Consulting Provider: NUTRITION Reason for Dietary Consult: Tube Feed Start & Manage Discharging clinician: Quirino Haider Anticipated date of discharge: 12/13/18 - Constitutional Vitals: Temp Pulse Resp BP Pulse Ox 98.9 F 81 16 139/69 97 12/13/18 07:01 12/13/18 07:01 12/13/18 07:01 12/13/18 07:01 12/13/18 07:01 General appearance: Present: A&O X 3, pleasant, answers questions appropriately Exam: See below - Head Head exam: Present: atraumatic, normocephalic - Eye Eye exam: Present: EOMI, conjuntiva pink - ENT ENT exam: Present: mucous membranes dry - Neck Neck exam general surgery: Present: supple - Cardiovascular Cardiovascular exam: Present: RRR. Absent: systolic murmur, tachycardia - GI/Abdominal GI/Abdominal exam: Present: soft. Absent: tenderness - Extremities Exam Extremities exam: Present: warm. Absent: tenderness - Neurological Exam Neurological exam: Present: alert, oriented X3 - Skin Skin exam: Present: dry, warm - Patient Status Disposition: Home Health Service Condition: Fair Functional capacity at discharge: independent ambulation Overall status at discharge: patient is progressing back to baseline - Discharge Instructions [facility] With: [facility] [[facility] Care Provider[facility] - - Diet and Activity Activity: resume usual activities as tolerated Diet: advance to your usual diet
--- NOTE | 2018-12-13 07:56 | Physician Discharge Referral ---
Home Health/Hosp Referral Info Transfer to: Home Health Provider in Charge Post Discharge: PCP - Diagnosis (1) Constipation due to opioid therapy Priority: Primary Status: Acute (2) Nausea Priority: Secondary Status: Acute (3) Esophageal adenocarcinoma Priority: Secondary Status: Chronic (4) HTN (hypertension) Priority: Secondary Status: Chronic (5) Protein-calorie malnutrition, severe Priority: Secondary Status: Suspected - Respiratory Orders None Smoking Cessation: Smoking cessation has been advised. For more information, call the [employer] Quit Line at 1-607-ZJPY-NOW. - Dressing/Wound Care Site: J tube Type of Dressing/Treatments w/Frequency: Dry dressing - Diet/Nutrition Diet/Nutrition: List: Osmolite at 80ml/h Free water 100ml q3h - Activity Activity Orders: Up ad elias - Services Needed Following services are medically necessary services: Nursing - Transfer Medications Prescriptions: Scopolamine Patch [Transderm-Scop] 1.5 mg TD Q72H PRN #10 patch.td72 PRN Reason: Nausea And Vomiting Transmission Status: Pending to [facility] Home Medications: Oxycodone HCl 5 mg GTUBE Q8H PRN 11/23/18 [History] Promethazine Syrup [Phenergan Syrup] 12.5 mg GTUBE Q6H PRN 12/10/18 [History] Ibuprofen [Motrin] 200 mg PO Q4HR PRN tablet 12/13/18 [Rx] Polyethylene Glycol 3350 [MiraLAX] 17 gm GTUBE BID powd.pack 12/13/18 [Rx] Scopolamine Patch [Transderm-Scop] 1.5 mg TD Q72H PRN #10 patch.td72 12/13/18 [Rx] Allergies/Adverse Reactions: Allergy/AdvReac Type Severity Reaction Status Date / Time azithromycin Allergy See Verified 12/10/18 21:20 Comments Certification: Further, I certify that my clinical findings support that this patient is homebound (i.e. absences from home require considerable and taxing effort and are for medical reasons or [employer] services or infrequently or short duration when for other reasons) because: Homebound Reason: Absences from home are contraindicated except to recieve medical care Attestation: My signature below is to certify that this patient is under my care and that I, or nurse practitioner, or a physician's compliance assistant working with me, has a [id number] encounter with this patient.
[2018-12-13 11:38] VITALS: BP 131/65
== END 2018-12-13 11:42 | disposition home health service (06) | DRG 391 ==
LOC: 3ANU 12:24 → EMEROOARM 12:24 → 3NENU 15:41 → 3ANU 15:43 → SUATTDRO 15:43 → 3ANU 17:48 → SUATTDRO 12-11 12:00
PROVIDERS: ADMIT Internal Medicine; ATTEND Internal Medicine

== ENCOUNTER 2018-12-16 02:12 | Inpatient (IN) ==
[2018-12-16] MEDS ORDERED: 0.9 % Sodium Chloride 1,000 ML IVC ONE ×3 (02:45→06:04)
[2018-12-16 02:56] LABS: Basophils % 0.3 %; Eosinophils % 0.1 %; Hematocrit 26.1 % (37.5-50.1); Hemoglobin 8.7 g/dL (12.9-16.9); Lymphocytes # 0.6 K/mcL (0.6-4.6); Lymphocytes % 8.2 %; Mean Corpuscular HGB Conc 33.3 g/dL (31.6-35.5); Mean Corpuscular Hemoglobin 32.6 pg (28.0-33.3); Mean Corpuscular Volume 97.8 fL (83.0-100.0); Mean Platelet Volume 9.2 fL (9.4-12.4); Monocytes # 1.2 K/mcL (0.0-1.3); Monocytes % 17.6 %; Platelet Count 260 K/mcL (140-400); Red Blood Count 2.67 M/mcL (4.19-5.50); Red Cell Distribution Width 12.1 % (11.5-14.5); Segmented Neutrophils % 72.8 %; White Blood Count 6.9 K/mcL (4.3-11.1)
[2018-12-16 03:18] LABS: Platelet Estimate Normal (Normal)
[2018-12-16 03:22] LABS: Alanine Aminotransferase 31 Units/L (7-52); Albumin 3.4 g/dL (3.5-5.7); Albumin/Globulin Ratio 1.2 (1.1-2.2); Alkaline Phosphatase 48 Units/L (34-104); Aspartate Amino Transferase 22 Units/L (13-39); BUN/Creatinine Ratio 32 (6-26); Bilirubin,Total 0.5 mg/dL (0.3-1.0); Blood Urea Nitrogen 35 mg/dL (8-23); Calcium 8.6 mg/dL (8.6-10.3); Carbon Dioxide 17 mEq/L (23-29); Chloride 96 mEq/L (98-107); Globulin 2.9 g/dL (2.4-3.5); Glucose 139 mg/dL (70-105); Osmolality,Calculated 284 (280-300); Potassium 4.2 mEq/L (3.5-5.1); Sodium 132 mEq/L (136-145); Total Protein 6.3 g/dL (6.4-8.9); eGFR For African Americans > 60 (> 60); eGFR For Non-African Americans > 60 (> 60)
[2018-12-16] MEDS ORDERED: Pantoprazole 40 MG VIAL IVP ONE (05:45)
[2018-12-16] MEDS ORDERED: Scopolamine Patch 1.5 MG PATCH.TD72 TD PRN (05:45)
[2018-12-16] MEDS ORDERED: 0.9 % Sodium Chloride 1,000 ML IVC SCH ×2 (05:45→17:45)
[2018-12-16] MEDS: Pantoprazole 40 MG in 0.9 % Sodium Chloride Mini Bag 100 ML IVC SCH ×3 (07:04→20:04)
[2018-12-16 07:19] LABS: Hematocrit 20.5 % (37.5-50.1)
[2018-12-16 07:28] LABS: INR 1.2; Prothrombin Time 13.4 Seconds (9.4-12.1)
[2018-12-16] MEDS ORDERED: MetroNIDAZOLE 500 MG/100 ML 500 MG/100 ML BAG IVPB SCH (09:24)
[2018-12-16] MEDS ORDERED: 0.9 % Sodium Chloride 250 ML ONE (09:57)
[2018-12-16 13:57] LABS: Bilirubin,Urine Negative (Negative); Blood,Urine Negative (Negative); Clarity,Urine Clear (Clear); Color,Urine Yellow (Yellow); Glucose,Urine (UA) Normal (Normal); Ketones,Urine Negative (Negative); Leukocyte Esterase,Urine Negative (Negative); Nitrite,Urine Negative (Negative); Protein,Urine 30 mg/dL (Neg-Trace); Urobilinogen,Urine Normal (Normal)
[2018-12-16 14:12] LABS: Bacteria,Urine Few per hpf (None-Few); Granular Casts,Urine Few per lpf (None Seen); RBC,Urine 0-3 per hpf (0-3); WBC,Urine 0-3 per hpf (0-3)
[2018-12-16 14:31] LABS: Hematocrit 22.6 % (37.5-50.1); Hemoglobin 7.6 g/dL (12.9-16.9)
[2018-12-16 15:58] LABS: Campylobacter by PCR Not detected (Not detect)
[2018-12-16 15:59] LABS: Adenovirus F 40/41 PCR Not detected (Not detect); Astrovirus PCR Not detected (Not detect); C.difficile Toxin A/B Gene PCR DETECTED (Not detect); Cryptosporidium by PCR Not detected (Not detect); Cyclospora cayetanensis PCR Not detected (Not detect); E. coli O157 by PCR Not detected (Not detect); Entamoeba histolytica PCR Not detected (Not detect); Enteroaggregative E.coli(EAEC) Not detected (Not detect); Enteropathogenic E.coli(EPEC) Not detected (Not detect); Enterotoxigenic E.coli (ETEC) Not detected (Not detect); Giardia lamblia PCR Not detected (Not detect); Norovirus GI/GII PCR Not detected (Not detect); Plesiomonas shigelloides PCR Not detected (Not detect); Rotavirus A PCR Not detected (Not detect); Salmonella PCR Not detected (Not detect); Sapovirus PCR Not detected (Not detect); Shig/EnteroinvasiveE coli EIEC Not detected (Not detect); Shigalike tox-prod E coli STEC Not detected (Not detect); Vibrio PCR Not detected (Not detect); Vibrio cholerae PCR Not detected (Not detect); Yersinia enterocolitica PCR Not detected (Not detect)
[2018-12-16] MEDS ORDERED: Vancomycin Oral Soln 125 MG/2.5 ML UDC PO SCH (16:30)
[2018-12-16] MEDS: MetroNIDAZOLE 500 MG/100 ML 500 MG/100 ML BAG IVPB SCH ×2 (16:40→23:59)
[2018-12-16] MEDS ORDERED: Vancomycin 500 MG, Sodium Chloride IRRigation 250 ML RC SCH (17:00)
[2018-12-16] MEDS: Lactobacillus 1 EACH CAP.SPRINK PO SCH (20:05)
[2018-12-16] MEDS: Vancomycin 500 MG, Sodium Chloride IRRigation 250 ML RC SCH (21:59)
[2018-12-17] MEDS: Pantoprazole 40 MG in 0.9 % Sodium Chloride Mini Bag 100 ML IVC SCH ×4 (01:01→21:09)
[2018-12-17 01:29] LABS: BUN/Creatinine Ratio 40 (6-26); Blood Urea Nitrogen 29 mg/dL (8-23); Calcium 7.3 mg/dL (8.6-10.3); Carbon Dioxide 18 mEq/L (23-29); Chloride 113 mEq/L (98-107); Glucose 82 mg/dL (70-105); Osmolality,Calculated 291 (280-300); Potassium 2.9 mEq/L (3.5-5.1); Sodium 138 mEq/L (136-145); eGFR For African Americans > 60 (> 60); eGFR For Non-African Americans > 60 (> 60)
[2018-12-17 01:31] LABS: Eosinophils # 0.1 K/mcL (0.0-0.6); Eosinophils % 0.8 %; Hemoglobin 6.8 g/dL (12.9-16.9); Lymphocytes # 0.8 K/mcL (0.6-4.6); Lymphocytes % 13.8 %; Mean Corpuscular Hemoglobin 31.9 pg (28.0-33.3); Mean Corpuscular Volume 93.9 fL (83.0-100.0); Mean Platelet Volume 9.3 fL (9.4-12.4); Monocytes % 16.3 %; Neutrophils # 4.1 K/mcL (1.6-8.9); Platelet Count 145 K/mcL (140-400); Red Blood Count 2.13 M/mcL (4.19-5.50); Red Cell Distribution Width 13.4 % (11.5-14.5); Segmented Neutrophils % 68.1 %
[2018-12-17 02:26] LABS: Platelet Estimate Normal (Normal); Poikilocytosis 1+ (Not Present)
[2018-12-17] MEDS ORDERED: 0.9 % Sodium Chloride 500 ML ONE (03:02)
[2018-12-17] MEDS: Lactobacillus 1 EACH CAP.SPRINK PO SCH ×4 (08:01→21:09)
[2018-12-17] MEDS: MetroNIDAZOLE 500 MG/100 ML 500 MG/100 ML BAG IVPB SCH ×3 (08:20→23:28)
[2018-12-17] MEDS ORDERED: Potassium Chloride Elixir 20 MEQ/15 ML UDC GTUBE ONE (08:35)
[2018-12-17] MEDS: Vancomycin 500 MG, Sodium Chloride IRRigation 250 ML RC SCH (09:19)
[2018-12-17] MEDS ORDERED: Vancomycin Oral Soln 125 MG/2.5 ML UDC GTUBE SCH (09:49)
[2018-12-17] MEDS: Vancomycin Oral Soln 125 MG/2.5 ML UDC PO SCH ×3 (13:00→21:10)
[2018-12-18 02:20] LABS: Hematocrit 22.3 % (37.5-50.1); Hemoglobin 7.8 g/dL (12.9-16.9); Mean Corpuscular Hemoglobin 32.9 pg (28.0-33.3); Mean Corpuscular Volume 94.1 fL (83.0-100.0); Mean Platelet Volume 9.1 fL (9.4-12.4); Neutrophils # 3.3 K/mcL (1.6-8.9); Platelet Count 138 K/mcL (140-400); Red Blood Count 2.37 M/mcL (4.19-5.50); Red Cell Distribution Width 13.9 % (11.5-14.5); White Blood Count 5.5 K/mcL (4.3-11.1)
[2018-12-18] MEDS: Pantoprazole 40 MG in 0.9 % Sodium Chloride Mini Bag 100 ML IVC SCH (02:32)
[2018-12-18 02:37] LABS: BUN/Creatinine Ratio 23 (6-26); Blood Urea Nitrogen 17 mg/dL (8-23); Calcium 7.3 mg/dL (8.6-10.3); Carbon Dioxide 19 mEq/L (23-29); Chloride 111 mEq/L (98-107); Glucose 104 mg/dL (70-105); Osmolality,Calculated 286 (280-300); Potassium 2.9 mEq/L (3.5-5.1); Sodium 137 mEq/L (136-145); eGFR For African Americans > 60 (> 60); eGFR For Non-African Americans > 60 (> 60)
[2018-12-18 02:53] LABS: Lymphocytes # 1.3 K/mcL (0.6-4.6); Monocytes # 0.9 K/mcL (0.0-1.3); Reactive Lymphocytes Present (Not Present)
[2018-12-18 02:54] LABS: Platelet Estimate Normal (Normal)
[2018-12-18] MEDS ORDERED: Potassium Chloride Elixir 20 MEQ/15 ML UDC PO ONE ×2 (07:55→19:28)
[2018-12-18] MEDS: MetroNIDAZOLE 500 MG/100 ML 500 MG/100 ML BAG IVPB SCH ×2 (09:32→15:50)
[2018-12-18] MEDS: Lactobacillus 1 EACH CAP.SPRINK PO SCH ×2 (09:35→09:49)
[2018-12-18] MEDS: Vancomycin Oral Soln 125 MG/2.5 ML UDC PO SCH ×4 (09:56→20:22)
[2018-12-18] MEDS: Doxycycline 100 MG in 0.9 % Sodium Chloride Mini Bag 100 ML IVPB SCH ×2 (12:20→20:22)
[2018-12-18] MEDS: Ondansetron 4 MG/2 ML VIAL IVP PRN (20:09)
[2018-12-19 04:35] LABS: Basophils % 0.2 %; Eosinophils # 0.2 K/mcL (0.0-0.6); Eosinophils % 3.1 %; Hematocrit 23.9 % (37.5-50.1); Immature Granulocytes % 3.6 % (0-4); Lymphocytes % 16.5 %; Mean Corpuscular HGB Conc 33.5 g/dL (31.6-35.5); Mean Corpuscular Volume 95.6 fL (83.0-100.0); Mean Platelet Volume 9.2 fL (9.4-12.4); Monocytes # 0.9 K/mcL (0.0-1.3); Monocytes % 14.9 %; Neutrophils # 3.6 K/mcL (1.6-8.9); Platelet Count 137 K/mcL (140-400); Red Cell Distribution Width 13.8 % (11.5-14.5); Segmented Neutrophils % 61.7 %; White Blood Count 5.8 K/mcL (4.3-11.1)
[2018-12-19 04:56] LABS: BUN/Creatinine Ratio 13 (6-26); Blood Urea Nitrogen 9 mg/dL (8-23); Calcium 7.3 mg/dL (8.6-10.3); Carbon Dioxide 21 mEq/L (23-29); Chloride 110 mEq/L (98-107); Glucose 108 mg/dL (70-105); Osmolality,Calculated 279 (280-300); Potassium 3.6 mEq/L (3.5-5.1); Sodium 135 mEq/L (136-145); eGFR For African Americans > 60 (> 60); eGFR For Non-African Americans > 60 (> 60)
[2018-12-19] MEDS: Doxycycline 100 MG in 0.9 % Sodium Chloride Mini Bag 100 ML IVPB SCH (09:19)
[2018-12-19] MEDS: Lactobacillus 1 EACH CAP.SPRINK PO SCH ×2 (09:27→20:01)
[2018-12-19] MEDS: Vancomycin Oral Soln 125 MG/2.5 ML UDC PO SCH ×4 (09:27→20:01)
[2018-12-19] MEDS: Ondansetron 4 MG/2 ML VIAL IVP PRN (20:01)
[2018-12-20 04:45] LABS: Basophils % 0.5 %; Eosinophils # 0.2 K/mcL (0.0-0.6); Eosinophils % 2.4 %; Hematocrit 24.4 % (37.5-50.1); Hemoglobin 8.5 g/dL (12.9-16.9); Immature Granulocytes % 2.9 % (0-4); Lymphocytes # 0.7 K/mcL (0.6-4.6); Lymphocytes % 11.7 %; Mean Corpuscular HGB Conc 34.8 g/dL (31.6-35.5); Mean Corpuscular Volume 91.7 fL (83.0-100.0); Mean Platelet Volume 9.5 fL (9.4-12.4); Monocytes # 0.7 K/mcL (0.0-1.3); Neutrophils # 4.3 K/mcL (1.6-8.9); Platelet Count 147 K/mcL (140-400); Red Blood Count 2.66 M/mcL (4.19-5.50); Red Cell Distribution Width 13.4 % (11.5-14.5); Segmented Neutrophils % 70.5 %; White Blood Count 6.2 K/mcL (4.3-11.1)
[2018-12-20 05:08] LABS: BUN/Creatinine Ratio 7 (6-26); Blood Urea Nitrogen 5 mg/dL (8-23); Calcium 7.4 mg/dL (8.6-10.3); Carbon Dioxide 25 mEq/L (23-29); Chloride 105 mEq/L (98-107); Glucose 115 mg/dL (70-105); Osmolality,Calculated 276 (280-300); Potassium 3.1 mEq/L (3.5-5.1); Sodium 134 mEq/L (136-145); eGFR For African Americans > 60 (> 60); eGFR For Non-African Americans > 60 (> 60)
[2018-12-20] MEDS: Lactobacillus 1 EACH CAP.SPRINK PO SCH ×2 (07:55→22:01)
[2018-12-20] MEDS: Vancomycin Oral Soln 125 MG/2.5 ML UDC PO SCH ×4 (07:56→22:01)
[2018-12-20] MEDS ORDERED: Potassium Chloride Elixir 20 MEQ/15 ML UDC PO ONE ×2 (08:37→13:38)
[2018-12-21 08:52] LABS: Bilirubin,Urine Negative (Negative); Blood,Urine Negative (Negative); Clarity,Urine Clear (Clear); Color,Urine Yellow (Yellow); Glucose,Urine (UA) Normal (Normal); Ketones,Urine Negative (Negative); Leukocyte Esterase,Urine Negative (Negative); Nitrite,Urine Negative (Negative); PH,Urine 7.5 pH Units (5.0-8.0); Protein,Urine Negative (Neg-Trace); Specific Gravity,Urine 1.012 (1.010-1.025); Urobilinogen,Urine Normal (Normal)
[2018-12-21] MEDS: Lactobacillus 1 EACH CAP.SPRINK PO SCH ×2 (09:49→21:02)
[2018-12-21] MEDS: Vancomycin Oral Soln 125 MG/2.5 ML UDC PO SCH ×4 (09:50→21:03)
[2018-12-21 11:05] LABS: BUN/Creatinine Ratio 13 (6-26); Blood Urea Nitrogen 7 mg/dL (8-23); Calcium 7.4 mg/dL (8.6-10.3); Carbon Dioxide 25 mEq/L (23-29); Chloride 104 mEq/L (98-107); Glucose 119 mg/dL (70-105); Osmolality,Calculated 273 (280-300); Sodium 132 mEq/L (136-145); eGFR For African Americans > 60 (> 60); eGFR For Non-African Americans > 60 (> 60)
[2018-12-21 12:29] LABS: Basophils % 0.4 %; Eosinophils # 0.2 K/mcL (0.0-0.6); Eosinophils % 2.6 %; Immature Granulocytes % 2.1 % (0-4); Lymphocytes # 0.6 K/mcL (0.6-4.6); Mean Corpuscular HGB Conc 33.3 g/dL (31.6-35.5); Mean Corpuscular Hemoglobin 32.1 pg (28.0-33.3); Mean Corpuscular Volume 96.4 fL (83.0-100.0); Mean Platelet Volume 9.9 fL (9.4-12.4); Monocytes # 0.6 K/mcL (0.0-1.3); Monocytes % 8.8 %; Neutrophils # 5.2 K/mcL (1.6-8.9); Platelet Count 162 K/mcL (140-400); Red Cell Distribution Width 14.1 % (11.5-14.5); Segmented Neutrophils % 77.1 %; White Blood Count 6.8 K/mcL (4.3-11.1)
[2018-12-22] MEDS: Lactobacillus 1 EACH CAP.SPRINK PO SCH (08:20)
[2018-12-22] MEDS: Vancomycin Oral Soln 125 MG/2.5 ML UDC PO SCH ×2 (08:21→11:36)
[2018-12-22 10:44] VITALS: BP 131/74
== END 2018-12-22 11:48 | disposition home or self-care (01) | DRG 371 ==
LOC: EMEROOARM 02:12 → 2NNU 02:12 → SUATTDRO 05:52 → 2NNU 06:40 → 2ANU 12-18 16:49 → SUATTDRO 12-18 21:04
PROVIDERS: ADMIT Internal Medicine; ATTEND Internal Medicine

== ENCOUNTER 2018-12-22 20:46 | Inpatient (IN) ==
[2018-12-22] MEDS ORDERED: 0.9 % Sodium Chloride 1,000 ML IVC ONE ×2 (21:50→23:56)
[2018-12-22] MEDS ORDERED: Ondansetron 4 MG/2 ML VIAL IVP ONE (21:51)
[2018-12-22 22:33] LABS: Hematocrit 34.4 % (37.5-50.1); Mean Corpuscular HGB Conc 33.4 g/dL (31.6-35.5); Mean Corpuscular Hemoglobin 32.1 pg (28.0-33.3); Mean Corpuscular Volume 96.1 fL (83.0-100.0); Mean Platelet Volume 9.8 fL (9.4-12.4); Nucleated Red Blood Cells 0.1 /100 WBC (0); Platelet Count 211 K/mcL (140-400); Red Blood Count 3.58 M/mcL (4.19-5.50); Red Cell Distribution Width 14.5 % (11.5-14.5)
[2018-12-22 22:42] LABS: Prothrombin Time 11.8 Seconds (9.4-12.1)
[2018-12-22 22:45] LABS: Activated Partial Thrombo Time 29.2 Seconds (26.0-36.0); Hemoglobin 11.5 g/dL (12.9-16.9); White Blood Count 17.2 K/mcL (4.3-11.1)
[2018-12-22 22:52] LABS: Alanine Aminotransferase 19 Units/L (7-52); Albumin 3.2 g/dL (3.5-5.7); Albumin/Globulin Ratio 1.2 (1.1-2.2); Alkaline Phosphatase 56 Units/L (34-104); Aspartate Amino Transferase 15 Units/L (13-39); BUN/Creatinine Ratio 12 (6-26); Bilirubin,Total 0.6 mg/dL (0.3-1.0); Blood Urea Nitrogen 13 mg/dL (8-23); Calcium 8.4 mg/dL (8.6-10.3); Carbon Dioxide 19 mEq/L (23-29); Chloride 101 mEq/L (98-107); Globulin 2.6 g/dL (2.4-3.5); Glucose 109 mg/dL (70-105); Osmolality,Calculated 277 (280-300); Sodium 133 mEq/L (136-145); Total Protein 5.8 g/dL (6.4-8.9); eGFR For African Americans > 60 (> 60); eGFR For Non-African Americans > 60 (> 60)
[2018-12-22 23:04] LABS: Troponin I 0.04 ng/mL (< 0.04)
[2018-12-22 23:46] LABS: Lymphocytes # 0.3 K/mcL (0.6-4.6); Monocytes # 0.3 K/mcL (0.0-1.3); Neutrophils # 16.5 K/mcL (1.6-8.9); Platelet Estimate Normal (Normal)
[2018-12-23] MEDS ORDERED: Vancomycin Oral Soln 125 MG/2.5 ML UDC PO STA (00:43)
[2018-12-23] MEDS ORDERED: MetroNIDAZOLE 500 MG/100 ML 500 MG/100 ML BAG IVPB ONE (00:57)
[2018-12-23] MEDS ORDERED: 0.9 % Sodium Chloride 1,000 ML IVC ONE (02:21)
[2018-12-23] MEDS ORDERED: Naloxone 0.4 MG/ML INJ IVP PRN (02:21)
[2018-12-23] MEDS ORDERED: 0.9 % Sodium Chloride 1,000 ML IVC SCH (02:30)
[2018-12-23 03:43] LABS: Basophils % 0.2 %; Eosinophils % 0.1 %; Hematocrit 26.9 % (37.5-50.1); Immature Granulocytes % 0.5 % (0-4); Lymphocytes # 0.4 K/mcL (0.6-4.6); Lymphocytes % 3.2 %; Mean Corpuscular HGB Conc 33.1 g/dL (31.6-35.5); Mean Corpuscular Hemoglobin 31.9 pg (28.0-33.3); Mean Corpuscular Volume 96.4 fL (83.0-100.0); Mean Platelet Volume 9.9 fL (9.4-12.4); Monocytes # 0.4 K/mcL (0.0-1.3); Monocytes % 3.4 %; Neutrophils # 11.4 K/mcL (1.6-8.9); Platelet Count 176 K/mcL (140-400); Red Blood Count 2.79 M/mcL (4.19-5.50); Red Cell Distribution Width 14.6 % (11.5-14.5); Segmented Neutrophils % 92.6 %; White Blood Count 12.3 K/mcL (4.3-11.1)
[2018-12-23 04:05] LABS: Alanine Aminotransferase 16 Units/L (7-52); Albumin 2.6 g/dL (3.5-5.7); Albumin/Globulin Ratio 1.1 (1.1-2.2); Alkaline Phosphatase 50 Units/L (34-104); Aspartate Amino Transferase 13 Units/L (13-39); BUN/Creatinine Ratio 16 (6-26); Bilirubin,Total 0.4 mg/dL (0.3-1.0); Blood Urea Nitrogen 16 mg/dL (8-23); Calcium 7.7 mg/dL (8.6-10.3); Carbon Dioxide 24 mEq/L (23-29); Chloride 107 mEq/L (98-107); Globulin 2.3 g/dL (2.4-3.5); Glucose 111 mg/dL (70-105); Magnesium 1.8 mg/dL (1.6-2.6); Osmolality,Calculated 280 (280-300); Phosphorous 3.8 mg/dL (2.7-4.5); Potassium 4.3 mEq/L (3.5-5.1); Sodium 134 mEq/L (136-145); Total Protein 4.9 g/dL (6.4-8.9); eGFR For African Americans > 60 (> 60); eGFR For Non-African Americans > 60 (> 60)
[2018-12-23 04:06] LABS: INR 1.1; Prothrombin Time 12.3 Seconds (9.4-12.1)
[2018-12-23 04:13] LABS: Hemoglobin 8.9 g/dL (12.9-16.9)
[2018-12-23] MEDS: Ondansetron ODT 4 MG TAB.RAPDIS SL PRN (04:49)
[2018-12-23] MEDS ORDERED: *HR* Heparin 5,000 UNIT/ML VIAL SQ SCH (06:00)
[2018-12-23 06:18] LABS: Hematocrit 29.5 % (37.5-50.1); Hemoglobin 9.4 g/dL (12.9-16.9)
[2018-12-23] MEDS: Pantoprazole 40 MG VIAL IVP SCH ×2 (06:30→17:57)
[2018-12-23] MEDS ORDERED: *HR* Promethazine 25 MG/ML VIAL IVP PRN (07:50)
[2018-12-23] MEDS ORDERED: MetroNIDAZOLE 500 MG/100 ML 500 MG/100 ML BAG IVPB SCH (08:00)
[2018-12-23] MEDS ORDERED: *HR* OxyCODONE Immed Rel 5 MG TABLET GTUBE PRN (08:25)
[2018-12-23] MEDS ORDERED: Fidaxomicin 200 MG TABLET PO SCH (09:00)
[2018-12-23] MEDS: Vancomycin Oral Soln 125 MG/2.5 ML UDC PO SCH ×4 (10:32→20:40)
[2018-12-23 18:39] LABS: Bilirubin,Urine Negative (Negative); Blood,Urine Negative (Negative); Clarity,Urine Cloudy (Clear); Color,Urine Yellow (Yellow); Glucose,Urine (UA) Normal (Normal); Ketones,Urine Negative (Negative); Leukocyte Esterase,Urine Negative (Negative); Nitrite,Urine Negative (Negative); Protein,Urine Negative (Neg-Trace); Urobilinogen,Urine Normal (Normal)
[2018-12-23 18:42] LABS: Bacteria,Urine None Seen per hpf (None-Few); Hyaline Casts,Urine None Seen per lpf (None-Few); Squamous Epithelial Cell,Urine Many per lpf (None-Few)
[2018-12-24] MEDS: Pantoprazole 40 MG VIAL IVP SCH ×2 (06:14→17:34)
[2018-12-24 08:47] LABS: Basophils % 0.3 %; Eosinophils # 0.3 K/mcL (0.0-0.6); Eosinophils % 4.5 %; Hematocrit 29.7 % (37.5-50.1); Hemoglobin 9.6 g/dL (12.9-16.9); Immature Granulocytes % 0.3 % (0-4); Lymphocytes # 1.2 K/mcL (0.6-4.6); Lymphocytes % 17.7 %; Mean Corpuscular HGB Conc 32.3 g/dL (31.6-35.5); Mean Corpuscular Hemoglobin 31.2 pg (28.0-33.3); Mean Corpuscular Volume 96.4 fL (83.0-100.0); Mean Platelet Volume 9.5 fL (9.4-12.4); Monocytes # 0.4 K/mcL (0.0-1.3); Monocytes % 6.8 %; Neutrophils # 4.6 K/mcL (1.6-8.9); Platelet Count 189 K/mcL (140-400); Red Blood Count 3.08 M/mcL (4.19-5.50); Red Cell Distribution Width 14.6 % (11.5-14.5); Segmented Neutrophils % 70.4 %; White Blood Count 6.5 K/mcL (4.3-11.1)
[2018-12-24 09:07] LABS: Alanine Aminotransferase 19 Units/L (7-52); Albumin 3.1 g/dL (3.5-5.7); Albumin/Globulin Ratio 1.1 (1.1-2.2); Alkaline Phosphatase 56 Units/L (34-104); Aspartate Amino Transferase 18 Units/L (13-39); BUN/Creatinine Ratio 11 (6-26); Bilirubin,Total 0.5 mg/dL (0.3-1.0); Blood Urea Nitrogen 9 mg/dL (8-23); Calcium 8.4 mg/dL (8.6-10.3); Carbon Dioxide 22 mEq/L (23-29); Chloride 106 mEq/L (98-107); Globulin 2.7 g/dL (2.4-3.5); Glucose 94 mg/dL (70-105); Osmolality,Calculated 276 (280-300); Potassium 3.9 mEq/L (3.5-5.1); Sodium 134 mEq/L (136-145); Total Protein 5.8 g/dL (6.4-8.9); eGFR For African Americans > 60 (> 60); eGFR For Non-African Americans > 60 (> 60)
[2018-12-24] MEDS: Vancomycin Oral Soln 125 MG/2.5 ML UDC PO SCH ×4 (09:10→20:51)
[2018-12-24] MEDS: Ondansetron ODT 4 MG TAB.RAPDIS SL PRN (17:34)
[2018-12-25 02:09] LABS: Basophils % 0.3 %; Eosinophils # 0.3 K/mcL (0.0-0.6); Eosinophils % 3.9 %; Hematocrit 26.5 % (37.5-50.1); Hemoglobin 8.6 g/dL (12.9-16.9); Immature Granulocytes % 0.4 % (0-4); Lymphocytes # 1.1 K/mcL (0.6-4.6); Lymphocytes % 15.9 %; Mean Corpuscular HGB Conc 32.5 g/dL (31.6-35.5); Mean Corpuscular Hemoglobin 31.6 pg (28.0-33.3); Mean Corpuscular Volume 97.4 fL (83.0-100.0); Mean Platelet Volume 9.7 fL (9.4-12.4); Monocytes # 0.5 K/mcL (0.0-1.3); Monocytes % 7.1 %; Platelet Count 161 K/mcL (140-400); Red Blood Count 2.72 M/mcL (4.19-5.50); Red Cell Distribution Width 14.6 % (11.5-14.5); Segmented Neutrophils % 72.4 %; White Blood Count 6.9 K/mcL (4.3-11.1)
[2018-12-25 03:34] LABS: BUN/Creatinine Ratio 6 (6-26); Blood Urea Nitrogen 5 mg/dL (8-23); Calcium 7.9 mg/dL (8.6-10.3); Carbon Dioxide 27 mEq/L (23-29); Chloride 105 mEq/L (98-107); Glucose 87 mg/dL (70-105); Osmolality,Calculated 277 (280-300); Potassium 3.9 mEq/L (3.5-5.1); Sodium 135 mEq/L (136-145); eGFR For African Americans > 60 (> 60); eGFR For Non-African Americans > 60 (> 60)
[2018-12-25] MEDS: Pantoprazole 40 MG VIAL IVP SCH ×2 (06:12→16:47)
[2018-12-25] MEDS ORDERED: Scopolamine Patch 1.5 MG PATCH.TD72 TD SCH (08:00)
[2018-12-25] MEDS: Vancomycin Oral Soln 125 MG/2.5 ML UDC PO SCH ×4 (09:47→20:02)
[2018-12-25 11:10] LABS: Magnesium 1.8 mg/dL (1.6-2.6)
[2018-12-25 11:30] LABS: Hematocrit 28.9 % (37.5-50.1)
[2018-12-25 11:31] LABS: Hemoglobin 9.3 g/dL (12.9-16.9)
[2018-12-25] MEDS ORDERED: Simethicone 40 MG/0.6 ML MLS PO PRN (12:19)
[2018-12-25] MEDS: Metoclopramide 10 MG/10 ML UD.LIQ GTUBE SCH ×3 (13:10→23:53)
[2018-12-25] MEDS: Ondansetron ODT 4 MG TAB.RAPDIS SL SCH ×4 (13:10→23:53)
[2018-12-25] MEDS: Docusate Oral Soln 100 MG/10 ML UDC GTUBE SCH (20:05)
[2018-12-26 01:59] LABS: Basophils % 0.3 %; Eosinophils # 0.2 K/mcL (0.0-0.6); Eosinophils % 3.4 %; Hematocrit 26.7 % (37.5-50.1); Hemoglobin 8.8 g/dL (12.9-16.9); Immature Granulocytes % 0.3 % (0-4); Lymphocytes # 0.9 K/mcL (0.6-4.6); Lymphocytes % 14.9 %; Mean Corpuscular Volume 97.1 fL (83.0-100.0); Mean Platelet Volume 9.6 fL (9.4-12.4); Monocytes # 0.7 K/mcL (0.0-1.3); Neutrophils # 4.3 K/mcL (1.6-8.9); Platelet Count 190 K/mcL (140-400); Red Blood Count 2.75 M/mcL (4.19-5.50); Red Cell Distribution Width 14.3 % (11.5-14.5); Segmented Neutrophils % 70.1 %; White Blood Count 6.2 K/mcL (4.3-11.1)
[2018-12-26 02:19] LABS: BUN/Creatinine Ratio 5 (6-26); Blood Urea Nitrogen 4 mg/dL (8-23); Calcium 8.2 mg/dL (8.6-10.3); Carbon Dioxide 23 mEq/L (23-29); Chloride 105 mEq/L (98-107); Glucose 94 mg/dL (70-105); Magnesium 1.8 mg/dL (1.6-2.6); Osmolality,Calculated 279 (280-300); Phosphorous 3.6 mg/dL (2.7-4.5); Potassium 3.8 mEq/L (3.5-5.1); Sodium 136 mEq/L (136-145); eGFR For African Americans > 60 (> 60); eGFR For Non-African Americans > 60 (> 60)
[2018-12-26] MEDS: Ondansetron ODT 4 MG TAB.RAPDIS SL SCH ×4 (04:00→17:00)
[2018-12-26] MEDS: Pantoprazole 40 MG VIAL IVP SCH ×2 (05:45→20:31)
[2018-12-26] MEDS: Metoclopramide 10 MG/10 ML UD.LIQ GTUBE SCH ×3 (05:45→18:04)
[2018-12-26] MEDS: Docusate Oral Soln 100 MG/10 ML UDC GTUBE SCH ×2 (09:49→20:11)
[2018-12-26] MEDS: Vancomycin Oral Soln 125 MG/2.5 ML UDC PO SCH ×4 (09:56→20:31)
[2018-12-27] MEDS: Metoclopramide 10 MG/10 ML UD.LIQ GTUBE SCH ×4 (00:48→18:10)
[2018-12-27] MEDS: Ondansetron ODT 4 MG TAB.RAPDIS SL SCH ×7 (00:54→21:50)
[2018-12-27 01:59] LABS: Basophils % 0.4 %; Eosinophils # 0.2 K/mcL (0.0-0.6); Eosinophils % 4.7 %; Hematocrit 26.5 % (37.5-50.1); Hemoglobin 8.9 g/dL (12.9-16.9); Immature Granulocytes % 0.4 % (0-4); Lymphocytes % 20.1 %; Mean Corpuscular HGB Conc 33.6 g/dL (31.6-35.5); Mean Corpuscular Hemoglobin 32.1 pg (28.0-33.3); Mean Corpuscular Volume 95.7 fL (83.0-100.0); Mean Platelet Volume 9.5 fL (9.4-12.4); Monocytes # 0.7 K/mcL (0.0-1.3); Monocytes % 13.5 %; Neutrophils # 3.1 K/mcL (1.6-8.9); Platelet Count 199 K/mcL (140-400); Red Blood Count 2.77 M/mcL (4.19-5.50); Red Cell Distribution Width 14.3 % (11.5-14.5); Segmented Neutrophils % 60.9 %; White Blood Count 5.1 K/mcL (4.3-11.1)
[2018-12-27 02:19] LABS: BUN/Creatinine Ratio 7 (6-26); Blood Urea Nitrogen 5 mg/dL (8-23); Calcium 8.2 mg/dL (8.6-10.3); Carbon Dioxide 25 mEq/L (23-29); Chloride 105 mEq/L (98-107); Glucose 105 mg/dL (70-105); Osmolality,Calculated 280 (280-300); Potassium 3.5 mEq/L (3.5-5.1); Sodium 136 mEq/L (136-145); eGFR For African Americans > 60 (> 60); eGFR For Non-African Americans > 60 (> 60)
[2018-12-27] MEDS: Pantoprazole 40 MG VIAL IVP SCH ×2 (05:26→18:51)
[2018-12-27] MEDS: Docusate Oral Soln 100 MG/10 ML UDC GTUBE SCH ×2 (09:32→21:50)
[2018-12-27] MEDS: Vancomycin Oral Soln 125 MG/2.5 ML UDC PO SCH ×4 (09:32→21:54)
[2018-12-28] MEDS: Ondansetron ODT 4 MG TAB.RAPDIS SL SCH ×2 (00:20→04:14)
[2018-12-28] MEDS: Metoclopramide 10 MG/10 ML UD.LIQ GTUBE SCH ×2 (00:20→04:15)
[2018-12-28 04:38] LABS: Basophils % 0.6 %; Eosinophils # 0.3 K/mcL (0.0-0.6); Eosinophils % 6.2 %; Hematocrit 30.1 % (37.5-50.1); Hemoglobin 9.7 g/dL (12.9-16.9); Immature Granulocytes % 0.6 % (0-4); Lymphocytes % 20.1 %; Mean Corpuscular HGB Conc 32.2 g/dL (31.6-35.5); Mean Corpuscular Hemoglobin 32.2 pg (28.0-33.3); Mean Platelet Volume 9.1 fL (9.4-12.4); Monocytes # 0.7 K/mcL (0.0-1.3); Monocytes % 14.3 %; Neutrophils # 2.9 K/mcL (1.6-8.9); Platelet Count 227 K/mcL (140-400); Red Blood Count 3.01 M/mcL (4.19-5.50); Red Cell Distribution Width 14.8 % (11.5-14.5); Segmented Neutrophils % 58.2 %
[2018-12-28 04:54] LABS: BUN/Creatinine Ratio 12 (6-26); Blood Urea Nitrogen 9 mg/dL (8-23); Calcium 8.5 mg/dL (8.6-10.3); Carbon Dioxide 29 mEq/L (23-29); Chloride 103 mEq/L (98-107); Glucose 104 mg/dL (70-105); Osmolality,Calculated 287 (280-300); Potassium 3.8 mEq/L (3.5-5.1); Sodium 139 mEq/L (136-145); eGFR For African Americans > 60 (> 60); eGFR For Non-African Americans > 60 (> 60)
[2018-12-28] MEDS: Pantoprazole 40 MG VIAL IVP SCH (05:44)
[2018-12-28 06:42] VITALS: BP 119/70
== END 2018-12-28 15:39 | disposition home or self-care (01) | DRG 391 ==
LOC: EMEROOARM 20:46 → 2NENU 12-23 03:33 → SUATTDRO 12-23 03:33 → 2NENU 12-23 03:41
PROVIDERS: ADMIT Internal Medicine; ATTEND Student in an Organized Health Care Education/Training Program

== ENCOUNTER 2019-01-17 07:20 | Inpatient (IN) ==
[~2019-01-17 07:20] MED LIST: *HR* FentaNYL (PF) 100 MCG/2 ML VIAL IVP PRN; *HR* HYDROmorphone (PF) 1 MG/ML SYRINGE IVP PRN; *HR* Meperidine 25 MG/ML SYRINGE IVP PRN; *HR* Midazolam HCl 2 MG/2 ML VIAL IVP PRN; *HR* OxyCODONE Immed Rel 5 MG TABLET PO PRN; *HR* Promethazine 25 MG/ML VIAL IVP PRN; Acetaminophen IV 1,000 MG/100 ML INFUS..BTL IVPB ONE; Famotidine 20 MG/2 ML VIAL IVP ONE; Ondansetron ODT 4 MG TAB.RAPDIS SL ONE; diazePAM 5 MG TABLET PO ONE
[2019-01-17] MEDS ORDERED: CeFAZolin Syr 2,000MG/20 ML 2,000 MG/20 ML SYRINGE IVPB ONE ×2 (08:05→12:30)
[2019-01-17] MEDS ORDERED: Acetaminophen IV 500 MG/50 ML INFUS..BTL IVPB ONE (08:06)
[2019-01-17] MEDS ORDERED: Ringers Solution, Lactated 1,000 ML IVC SCH (08:15)
[2019-01-17] MEDS ORDERED: *HR* Propofol 200 MG/20 ML VIAL IVP ONE (08:20)
[2019-01-17] MEDS ORDERED: Ondansetron 4 MG/2 ML VIAL ONE ×2 (08:20→12:16)
[2019-01-17] MEDS ORDERED: *HR* FentaNYL (PF) 100 MCG/2 ML VIAL ONE ×2 (08:20→13:08)
[2019-01-17] MEDS ORDERED: *HR* Rocuronium Bromide 50 MG/5 ML VIAL ONE ×2 (08:20→12:11)
[2019-01-17] MEDS ORDERED: Dexamethasone 4 MG/ML VIAL ONE ×2 (08:20→12:16)
[2019-01-17] MEDS ORDERED: *HR* Succinylcholine 200 MG/10 ML VIAL IVP ONE (08:20)
[2019-01-17] MEDS ORDERED: Lidocaine -MPF 2% 2 ML VIAL ONE (08:20)
[2019-01-17] MEDS ORDERED: *HR* Phenylephrine 10 MG/ML VIAL ONE (08:21)
[2019-01-17] MEDS ORDERED: Ketorolac 30 MG/ML VIAL ONE (08:21)
[2019-01-17] MEDS ORDERED: Lidocaine HCL 4 ML Topical Solution (Laryng-O-Jet Kit Sterile Pak) TP ONE (08:21)
[2019-01-17] MEDS ORDERED: *HR* PHENYLEPHRINE 1,000 MCG/10 ML SYRINGE IVP ONE ×2 (08:21→13:54)
[2019-01-17] MEDS ORDERED: Heparin 1,000 UNITS/500 mL 500 ML ONE (08:52)
[2019-01-17] MEDS ORDERED: cefOXitin 1,000 MG, 0.9 % Sodium Chloride 1,000 ML IR ONE (09:00)
[2019-01-17] MEDS ORDERED: Lidocaine Jelly 6ml 1 APPL/6 ML JEL.PF.APP ONE (09:06)
[2019-01-17] MEDS ORDERED: *HR* Vasopressin 20 UNIT/ML VIAL ONE (09:23)
[2019-01-17] MEDS ORDERED: Naloxone 0.4 MG/ML INJ IVP PRN (13:53)
[2019-01-17] MEDS ORDERED: Ondansetron 4 MG/2 ML VIAL IVP PRN (13:53)
[2019-01-17] MEDS ORDERED: 0.9 % Sodium Chloride 1,000 ML ONE (13:56)
[2019-01-17] MEDS ORDERED: Albumin Human 5% 25.0 GM/500 ML VIAL ONE (14:28)
[2019-01-17 14:46] LABS: Hematocrit 27.8 % (37.5-50.1); Mean Corpuscular HGB Conc 33.8 g/dL (31.6-35.5); Mean Corpuscular Hemoglobin 32.2 pg (28.0-33.3); Mean Corpuscular Volume 95.2 fL (83.0-100.0); Mean Platelet Volume 8.5 fL (9.4-12.4); Platelet Count 256 K/mcL (140-400); Red Blood Count 2.92 M/mcL (4.19-5.50); White Blood Count 10.7 K/mcL (4.3-11.1)
[2019-01-17] MEDS: 0.9 % Sodium Chloride 1,000 ML IVC SCH ×2 (14:47→21:35)
[2019-01-17 14:49] LABS: Hemoglobin 9.4 g/dL (12.9-16.9)
[2019-01-17 15:07] LABS: BUN/Creatinine Ratio 19 (6-26); Blood Urea Nitrogen 12 mg/dL (8-23); Calcium 7.5 mg/dL (8.6-10.3); Carbon Dioxide 23 mEq/L (23-29); Chloride 106 mEq/L (98-107); Glucose 113 mg/dL (70-105); Magnesium 1.6 mg/dL (1.6-2.6); Osmolality,Calculated 283 (280-300); Phosphorous 3.5 mg/dL (2.7-4.5); Potassium 3.9 mEq/L (3.5-5.1); Sodium 136 mEq/L (136-145); eGFR For African Americans > 60 (> 60); eGFR For Non-African Americans > 60 (> 60)
[2019-01-17] MEDS ORDERED: Morphine Sulfate 2 MG/ML SYRINGE IVP ONE (15:45)
[2019-01-17] MEDS: *HR* Heparin 5,000 UNIT/ML VIAL SQ SCH ×2 (15:56→21:38)
[2019-01-17] MEDS: Ipratropium/Albuterol Neb 3 ML IH SCH ×2 (16:08→20:14)
[2019-01-17] MEDS: Morphine PCA 30 MG/ 30 ML 30 ML PCA.VIAL IVC SCH (16:25)
[2019-01-17] MEDS: Ketorolac 15 MG/ML VIAL IVP SCH ×2 (18:03→23:58)
[2019-01-18] MEDS: Ipratropium/Albuterol Neb 3 ML IH SCH ×6 (00:02→20:33)
[2019-01-18 03:58] LABS: Hematocrit 24.6 % (37.5-50.1); Mean Corpuscular HGB Conc 32.5 g/dL (31.6-35.5); Mean Corpuscular Hemoglobin 31.7 pg (28.0-33.3); Mean Corpuscular Volume 97.6 fL (83.0-100.0); Mean Platelet Volume 8.7 fL (9.4-12.4); Platelet Count 207 K/mcL (140-400); Red Blood Count 2.52 M/mcL (4.19-5.50); Red Cell Distribution Width 14.1 % (11.5-14.5); White Blood Count 10.7 K/mcL (4.3-11.1)
[2019-01-18 04:17] LABS: Alanine Aminotransferase 28 Units/L (7-52); Albumin/Globulin Ratio 1.4 (1.1-2.2); Alkaline Phosphatase 39 Units/L (34-104); Aspartate Amino Transferase 35 Units/L (13-39); BUN/Creatinine Ratio 25 (6-26); Bilirubin,Direct 0.1 mg/dL (0.0-0.2); Bilirubin,Indirect 0.2 mg/dL (0.0-1.0); Bilirubin,Total 0.3 mg/dL (0.3-1.0); Blood Urea Nitrogen 15 mg/dL (8-23); Calcium 7.9 mg/dL (8.6-10.3); Carbon Dioxide 21 mEq/L (23-29); Chloride 109 mEq/L (98-107); Globulin 2.1 g/dL (2.4-3.5); Glucose 130 mg/dL (70-105); Iron < 10 mcg/dL (65-175); Magnesium 2.7 mg/dL (1.6-2.6); Osmolality,Calculated 285 (280-300); Phosphorous 4.5 mg/dL (2.7-4.5); Potassium 4.6 mEq/L (3.5-5.1); Sodium 136 mEq/L (136-145); Total Protein 5.1 g/dL (6.4-8.9); Transferrin 128 mg/dL (203-362); eGFR For African Americans > 60 (> 60); eGFR For Non-African Americans > 60 (> 60)
[2019-01-18] MEDS: Ketorolac 15 MG/ML VIAL IVP SCH ×4 (05:03→23:54)
[2019-01-18] MEDS: 0.9 % Sodium Chloride 1,000 ML IVC SCH ×3 (05:05→21:00)
[2019-01-18] MEDS: *HR* Heparin 5,000 UNIT/ML VIAL SQ SCH ×3 (05:10→21:09)
[2019-01-18] MEDS ORDERED: Iron Sucrose Complex 400 MG in 0.9 % Sodium Chloride 250 ML IVPB ONE (07:38)
[2019-01-18] MEDS: Morphine PCA 30 MG/ 30 ML 30 ML PCA.VIAL IVC SCH (09:49)
[2019-01-19] MEDS: Ipratropium/Albuterol Neb 3 ML IH SCH ×6 (00:52→20:19)
[2019-01-19] MEDS: 0.9 % Sodium Chloride 1,000 ML IVC SCH ×3 (03:59→21:21)
[2019-01-19 04:41] LABS: Hematocrit 23.5 % (37.5-50.1); Hemoglobin 7.8 g/dL (12.9-16.9); Mean Corpuscular HGB Conc 33.2 g/dL (31.6-35.5); Mean Corpuscular Hemoglobin 31.7 pg (28.0-33.3); Mean Corpuscular Volume 95.5 fL (83.0-100.0); Mean Platelet Volume 8.8 fL (9.4-12.4); Platelet Count 231 K/mcL (140-400); Red Blood Count 2.46 M/mcL (4.19-5.50); Red Cell Distribution Width 14.7 % (11.5-14.5); White Blood Count 10.6 K/mcL (4.3-11.1)
[2019-01-19 04:55] LABS: BUN/Creatinine Ratio 26 (6-26); Blood Urea Nitrogen 15 mg/dL (8-23); Calcium 7.8 mg/dL (8.6-10.3); Carbon Dioxide 22 mEq/L (23-29); Chloride 113 mEq/L (98-107); Glucose 91 mg/dL (70-105); Magnesium 2.3 mg/dL (1.6-2.6); Osmolality,Calculated 286 (280-300); Phosphorous 2.2 mg/dL (2.7-4.5); Potassium 4.3 mEq/L (3.5-5.1); Sodium 138 mEq/L (136-145); eGFR For African Americans > 60 (> 60); eGFR For Non-African Americans > 60 (> 60)
[2019-01-19] MEDS: *HR* Heparin 5,000 UNIT/ML VIAL SQ SCH ×3 (06:14→21:22)
[2019-01-19] MEDS: Ketorolac 15 MG/ML VIAL IVP SCH ×4 (06:16→23:24)
[2019-01-19] MEDS ORDERED: Iron Sucrose Complex 400 MG in 0.9 % Sodium Chloride 250 ML IVPB ONE (07:39)
[2019-01-19] MEDS: Morphine PCA 30 MG/ 30 ML 30 ML PCA.VIAL IVC SCH (19:50)
[2019-01-20] MEDS: Ipratropium/Albuterol Neb 3 ML IH SCH ×7 (00:01→23:45)
[2019-01-20 04:32] LABS: Hematocrit 20.5 % (37.5-50.1); Hemoglobin 6.8 g/dL (12.9-16.9); Mean Corpuscular HGB Conc 33.2 g/dL (31.6-35.5); Mean Corpuscular Hemoglobin 32.1 pg (28.0-33.3); Mean Corpuscular Volume 96.7 fL (83.0-100.0); Mean Platelet Volume 8.8 fL (9.4-12.4); Platelet Count 202 K/mcL (140-400); Red Blood Count 2.12 M/mcL (4.19-5.50); Red Cell Distribution Width 14.9 % (11.5-14.5); White Blood Count 7.8 K/mcL (4.3-11.1)
[2019-01-20 04:51] LABS: BUN/Creatinine Ratio 24 (6-26); Blood Urea Nitrogen 12 mg/dL (8-23); Calcium 7.6 mg/dL (8.6-10.3); Carbon Dioxide 21 mEq/L (23-29); Chloride 115 mEq/L (98-107); Glucose 80 mg/dL (70-105); Osmolality,Calculated 291 (280-300); Phosphorous 2.7 mg/dL (2.7-4.5); Potassium 3.7 mEq/L (3.5-5.1); Sodium 141 mEq/L (136-145); eGFR For African Americans > 60 (> 60); eGFR For Non-African Americans > 60 (> 60)
[2019-01-20] MEDS: 0.9 % Sodium Chloride 1,000 ML IVC SCH ×3 (05:40→19:57)
[2019-01-20] MEDS: Ketorolac 15 MG/ML VIAL IVP SCH ×4 (05:41→23:44)
[2019-01-20] MEDS: *HR* Heparin 5,000 UNIT/ML VIAL SQ SCH ×3 (05:44→21:57)
[2019-01-20] MEDS ORDERED: 0.9 % Sodium Chloride 1,000 ML IVC SCH (08:30)
[2019-01-20] MEDS ORDERED: Naloxone 0.4 MG/ML INJ IVP PRN (09:50)
[2019-01-20] MEDS: Morphine PCA 30 MG/ 30 ML 30 ML PCA.VIAL IVC SCH (10:23)
[2019-01-21] MEDS: Ipratropium/Albuterol Neb 3 ML IH SCH ×6 (03:56→23:54)
[2019-01-21 04:56] LABS: Hematocrit 21.1 % (37.5-50.1); Hemoglobin 6.9 g/dL (12.9-16.9); Mean Corpuscular HGB Conc 32.7 g/dL (31.6-35.5); Mean Corpuscular Hemoglobin 31.7 pg (28.0-33.3); Mean Corpuscular Volume 96.8 fL (83.0-100.0); Platelet Count 213 K/mcL (140-400); Red Blood Count 2.18 M/mcL (4.19-5.50); White Blood Count 7.9 K/mcL (4.3-11.1)
[2019-01-21 05:14] LABS: % Iron Saturation 27 % (20-55); BUN/Creatinine Ratio 30 (6-26); Blood Urea Nitrogen 15 mg/dL (8-23); Calcium 7.8 mg/dL (8.6-10.3); Carbon Dioxide 22 mEq/L (23-29); Chloride 115 mEq/L (98-107); Glucose 111 mg/dL (70-105); Iron 40 mcg/dL (65-175); Osmolality,Calculated 302 (280-300); Phosphorous 1.9 mg/dL (2.7-4.5); Potassium 3.5 mEq/L (3.5-5.1); Sodium 145 mEq/L (136-145); Transferrin 104 mg/dL (203-362); eGFR For African Americans > 60 (> 60); eGFR For Non-African Americans > 60 (> 60)
[2019-01-21] MEDS: *HR* Heparin 5,000 UNIT/ML VIAL SQ SCH ×3 (05:37→22:00)
[2019-01-21] MEDS: Ketorolac 15 MG/ML VIAL IVP SCH ×4 (05:42→23:47)
[2019-01-21] MEDS: Morphine PCA 30 MG/ 30 ML 30 ML PCA.VIAL IVC SCH ×2 (10:11→17:32)
[2019-01-21] MEDS ORDERED: Potassium Phosphate 44 MEQ in 0.9 % Sodium Chloride 250 ML IVPB ONE (10:31)
[2019-01-21] MEDS ORDERED: Iron Sucrose Complex 400 MG in 0.9 % Sodium Chloride 250 ML IVPB ONE (10:31)
[2019-01-21] MEDS: 0.9 % Sodium Chloride 1,000 ML IVC SCH (17:40)
[2019-01-22] MEDS: Ipratropium/Albuterol Neb 3 ML IH SCH ×6 (03:59→23:48)
[2019-01-22 04:50] LABS: Hematocrit 21.5 % (37.5-50.1); Hemoglobin 7.1 g/dL (12.9-16.9); Mean Corpuscular Hemoglobin 32.3 pg (28.0-33.3); Mean Corpuscular Volume 97.7 fL (83.0-100.0); Mean Platelet Volume 8.9 fL (9.4-12.4); Platelet Count 218 K/mcL (140-400); Red Cell Distribution Width 15.3 % (11.5-14.5); White Blood Count 8.8 K/mcL (4.3-11.1)
[2019-01-22] MEDS: Ketorolac 15 MG/ML VIAL IVP SCH ×3 (05:11→17:39)
[2019-01-22] MEDS: *HR* Heparin 5,000 UNIT/ML VIAL SQ SCH ×3 (05:12→21:52)
[2019-01-22 05:15] LABS: BUN/Creatinine Ratio 33 (6-26); Blood Urea Nitrogen 15 mg/dL (8-23); Calcium 7.8 mg/dL (8.6-10.3); Carbon Dioxide 23 mEq/L (23-29); Chloride 116 mEq/L (98-107); Glucose 113 mg/dL (70-105); Magnesium 1.9 mg/dL (1.6-2.6); Osmolality,Calculated 306 (280-300); Phosphorous 1.9 mg/dL (2.7-4.5); Potassium 3.6 mEq/L (3.5-5.1); Sodium 147 mEq/L (136-145); eGFR For African Americans > 60 (> 60); eGFR For Non-African Americans > 60 (> 60)
[2019-01-22] MEDS ORDERED: Potassium Phosphate 44 MEQ in 0.9 % Sodium Chloride 250 ML IVPB ONE (08:20)
[2019-01-22] MEDS: D5% in Water 500 ML IVC SCH (09:51)
[2019-01-23] MEDS: *HR* OxyCODONE Oral Soln 5 MG/5 ML UD.LIQ PO PRN ×2 (00:44→19:29)
[2019-01-23 01:54] LABS: Hematocrit 22.5 % (37.5-50.1); Hemoglobin 7.4 g/dL (12.9-16.9); Mean Corpuscular HGB Conc 32.9 g/dL (31.6-35.5); Mean Corpuscular Hemoglobin 33.2 pg (28.0-33.3); Mean Corpuscular Volume 100.9 fL (83.0-100.0); Platelet Count 193 K/mcL (140-400); Red Blood Count 2.23 M/mcL (4.19-5.50); White Blood Count 7.8 K/mcL (4.3-11.1)
[2019-01-23 02:12] LABS: % Iron Saturation 24 % (20-55); Iron 38 mcg/dL (65-175); Transferrin 113 mg/dL (203-362)
[2019-01-23 02:13] LABS: BUN/Creatinine Ratio 38 (6-26); Blood Urea Nitrogen 18 mg/dL (8-23); Calcium 7.8 mg/dL (8.6-10.3); Carbon Dioxide 23 mEq/L (23-29); Chloride 115 mEq/L (98-107); Glucose 116 mg/dL (70-105); Osmolality,Calculated 299 (280-300); Phosphorous 2.5 mg/dL (2.7-4.5); Potassium 3.7 mEq/L (3.5-5.1); Sodium 143 mEq/L (136-145); eGFR For African Americans > 60 (> 60); eGFR For Non-African Americans > 60 (> 60)
[2019-01-23] MEDS: Ipratropium/Albuterol Neb 3 ML IH SCH ×5 (04:01→19:39)
[2019-01-23] MEDS: D5% in Water 500 ML IVC SCH (04:37)
[2019-01-23] MEDS: *HR* Heparin 5,000 UNIT/ML VIAL SQ SCH ×3 (04:37→21:16)
[2019-01-23] MEDS ORDERED: Iron Sucrose Complex 400 MG in 0.9 % Sodium Chloride 250 ML IVPB ONE (09:56)
[2019-01-23] MEDS ORDERED: Potassium Phosphate 44 MEQ in 0.9 % Sodium Chloride 250 ML IVPB ONE (09:56)
[2019-01-24] MEDS: Ipratropium/Albuterol Neb 3 ML IH SCH ×7 (00:40→23:36)
[2019-01-24 01:30] LABS: Hemoglobin 7.2 g/dL (12.9-16.9); Mean Corpuscular HGB Conc 32.7 g/dL (31.6-35.5); Mean Corpuscular Hemoglobin 32.3 pg (28.0-33.3); Mean Corpuscular Volume 98.7 fL (83.0-100.0); Mean Platelet Volume 9.2 fL (9.4-12.4); Platelet Count 219 K/mcL (140-400); Red Blood Count 2.23 M/mcL (4.19-5.50); Red Cell Distribution Width 16.3 % (11.5-14.5); White Blood Count 9.6 K/mcL (4.3-11.1)
[2019-01-24 01:52] LABS: BUN/Creatinine Ratio 35 (6-26); Blood Urea Nitrogen 15 mg/dL (8-23); Calcium 7.7 mg/dL (8.6-10.3); Carbon Dioxide 24 mEq/L (23-29); Chloride 109 mEq/L (98-107); Glucose 102 mg/dL (70-105); Magnesium 1.8 mg/dL (1.6-2.6); Osmolality,Calculated 287 (280-300); Phosphorous 2.4 mg/dL (2.7-4.5); Potassium 4.2 mEq/L (3.5-5.1); Sodium 138 mEq/L (136-145); eGFR For African Americans > 60 (> 60); eGFR For Non-African Americans > 60 (> 60)
[2019-01-24] MEDS: *HR* Heparin 5,000 UNIT/ML VIAL SQ SCH ×3 (05:45→21:38)
[2019-01-24] MEDS: *HR* OxyCODONE Oral Soln 5 MG/5 ML UD.LIQ PO PRN (21:37)
[2019-01-25 00:58] LABS: Hematocrit 23.1 % (37.5-50.1); Hemoglobin 7.5 g/dL (12.9-16.9); Mean Corpuscular HGB Conc 32.5 g/dL (31.6-35.5); Mean Corpuscular Hemoglobin 32.6 pg (28.0-33.3); Mean Corpuscular Volume 100.4 fL (83.0-100.0); Mean Platelet Volume 9.2 fL (9.4-12.4); Platelet Count 217 K/mcL (140-400); Red Cell Distribution Width 17.2 % (11.5-14.5); White Blood Count 9.1 K/mcL (4.3-11.1)
[2019-01-25 01:19] LABS: BUN/Creatinine Ratio 28 (6-26); Blood Urea Nitrogen 14 mg/dL (8-23); Calcium 7.8 mg/dL (8.6-10.3); Carbon Dioxide 26 mEq/L (23-29); Chloride 105 mEq/L (98-107); Glucose 109 mg/dL (70-105); Magnesium 1.8 mg/dL (1.6-2.6); Osmolality,Calculated 283 (280-300); Phosphorous 2.4 mg/dL (2.7-4.5); Sodium 136 mEq/L (136-145); eGFR For African Americans > 60 (> 60); eGFR For Non-African Americans > 60 (> 60)
[2019-01-25] MEDS: Ipratropium/Albuterol Neb 3 ML IH SCH ×5 (03:37→20:39)
[2019-01-25] MEDS: *HR* Heparin 5,000 UNIT/ML VIAL SQ SCH ×3 (05:06→21:15)
[2019-01-25] MEDS ORDERED: Thiamine (B-1) 100 MG in 0.9 % Sodium Chloride 50 ML IVPB ONE (10:15)
[2019-01-25] MEDS ORDERED: Folic Acid 1 MG in 0.9 % Sodium Chloride 50 ML IVPB ONE (10:15)
[2019-01-25] MEDS: *HR* OxyCODONE Oral Soln 5 MG/5 ML UD.LIQ PO PRN (19:22)
[2019-01-25] MEDS: Ondansetron 4 MG/2 ML VIAL IVP PRN (21:39)
[2019-01-25] MEDS ORDERED: Morphine Sulfate 2 MG/ML SYRINGE IVP ONE (22:22)
[2019-01-25] MEDS ORDERED: *HR* Promethazine 25 MG/ML VIAL ONE (22:26)
[2019-01-25] MEDS ORDERED: 0.9 % Sodium Chloride 1,000 ML IVC SCH (22:30)
[2019-01-26] MEDS: Ipratropium/Albuterol Neb 3 ML IH SCH ×6 (00:24→20:04)
[2019-01-26] MEDS: *HR* OxyCODONE Oral Soln 5 MG/5 ML UD.LIQ PO PRN (02:51)
[2019-01-26] MEDS: *HR* Promethazine 25 MG/ML VIAL IVP PRN (04:21)
[2019-01-26] MEDS: *HR* Heparin 5,000 UNIT/ML VIAL SQ SCH ×3 (06:35→21:23)
[2019-01-26] MEDS: Morphine Sulfate 2 MG/ML SYRINGE IVP PRN (08:46)
[2019-01-26] MEDS: Ondansetron 4 MG/2 ML VIAL IVP PRN (09:06)
[2019-01-26] MEDS: 0.9 % Sodium Chloride 1,000 ML IVC SCH ×3 (13:05→21:23)
[2019-01-27] MEDS: Ipratropium/Albuterol Neb 3 ML IH SCH ×7 (01:29→23:13)
[2019-01-27 04:55] LABS: Hematocrit 25.5 % (37.5-50.1); Hemoglobin 8.3 g/dL (12.9-16.9); Mean Corpuscular HGB Conc 32.5 g/dL (31.6-35.5); Mean Corpuscular Hemoglobin 32.9 pg (28.0-33.3); Mean Corpuscular Volume 101.2 fL (83.0-100.0); Mean Platelet Volume 9.1 fL (9.4-12.4); Platelet Count 281 K/mcL (140-400); Red Blood Count 2.52 M/mcL (4.19-5.50); Red Cell Distribution Width 18.5 % (11.5-14.5); White Blood Count 8.9 K/mcL (4.3-11.1)
[2019-01-27 05:20] LABS: BUN/Creatinine Ratio 27 (6-26); Blood Urea Nitrogen 16 mg/dL (8-23); Calcium 7.7 mg/dL (8.6-10.3); Carbon Dioxide 23 mEq/L (23-29); Chloride 105 mEq/L (98-107); Glucose 79 mg/dL (70-105); Magnesium 1.8 mg/dL (1.6-2.6); Osmolality,Calculated 278 (280-300); Potassium 4.4 mEq/L (3.5-5.1); Sodium 134 mEq/L (136-145); eGFR For African Americans > 60 (> 60); eGFR For Non-African Americans > 60 (> 60)
[2019-01-27] MEDS: *HR* Heparin 5,000 UNIT/ML VIAL SQ SCH ×3 (05:45→23:42)
[2019-01-27] MEDS: 0.9 % Sodium Chloride 1,000 ML IVC SCH ×2 (05:46→09:42)
[2019-01-27] MEDS ORDERED: Metoclopramide 10 MG/10 ML UD.LIQ PO PRN (08:40)
[2019-01-27] MEDS: Morphine Sulfate 2 MG/ML SYRINGE IVP PRN ×2 (20:08→23:41)
[2019-01-28] MEDS: Ipratropium/Albuterol Neb 3 ML IH SCH ×6 (03:44→23:52)
[2019-01-28] MEDS: 0.9 % Sodium Chloride 1,000 ML IVC SCH (05:51)
[2019-01-28] MEDS: *HR* Heparin 5,000 UNIT/ML VIAL SQ SCH ×3 (05:52→20:21)
[2019-01-28] MEDS: Morphine Sulfate 2 MG/ML SYRINGE IVP PRN ×2 (09:32→11:47)
[2019-01-28] MEDS: Metoclopramide 10 MG/2 ML VIAL IVP SCH ×2 (13:15→20:21)
[2019-01-29] MEDS: 0.9 % Sodium Chloride 1,000 ML IVC SCH ×3 (01:55→20:50)
[2019-01-29] MEDS: Ipratropium/Albuterol Neb 3 ML IH SCH ×6 (03:49→23:35)
[2019-01-29] MEDS: *HR* Heparin 5,000 UNIT/ML VIAL SQ SCH ×3 (05:15→20:50)
[2019-01-29] MEDS: Metoclopramide 10 MG/2 ML VIAL IVP SCH ×2 (05:15→12:23)
[2019-01-29] MEDS: Morphine Sulfate 2 MG/ML SYRINGE IVP PRN (20:50)
[2019-01-30] MEDS: Ipratropium/Albuterol Neb 3 ML IH SCH ×6 (03:36→23:29)
[2019-01-30] MEDS: *HR* Heparin 5,000 UNIT/ML VIAL SQ SCH ×3 (05:21→23:50)
[2019-01-30 05:42] LABS: Hematocrit 25.3 % (37.5-50.1); Hemoglobin 8.5 g/dL (12.9-16.9); Mean Corpuscular HGB Conc 33.6 g/dL (31.6-35.5); Mean Corpuscular Hemoglobin 33.1 pg (28.0-33.3); Mean Corpuscular Volume 98.4 fL (83.0-100.0); Platelet Count 293 K/mcL (140-400); Red Blood Count 2.57 M/mcL (4.19-5.50); Red Cell Distribution Width 17.2 % (11.5-14.5); White Blood Count 7.9 K/mcL (4.3-11.1)
[2019-01-30 06:03] LABS: BUN/Creatinine Ratio 11 (6-26); Blood Urea Nitrogen 6 mg/dL (8-23); Calcium 7.8 mg/dL (8.6-10.3); Carbon Dioxide 23 mEq/L (23-29); Chloride 102 mEq/L (98-107); Glucose 94 mg/dL (70-105); Magnesium 1.6 mg/dL (1.6-2.6); Osmolality,Calculated 275 (280-300); Phosphorous 1.7 mg/dL (2.7-4.5); Potassium 3.3 mEq/L (3.5-5.1); Sodium 134 mEq/L (136-145); eGFR For African Americans > 60 (> 60); eGFR For Non-African Americans > 60 (> 60)
[2019-01-30] MEDS: 0.9 % Sodium Chloride 1,000 ML IVC SCH (14:35)
[2019-01-30] MEDS: *HR* Promethazine 25 MG/ML VIAL IVP PRN (14:58)
[2019-01-30] MEDS ORDERED: 0.9 % Sodium Chloride 500 ML IVC ONE (16:34)
[2019-01-30] MEDS ORDERED: 0.9 % Sodium Chloride 1,000 ML IVC SCH (16:45)
[2019-01-30 17:16] LABS: ABG Base Excess -3 mEq/L (-2 to 3); ABG HCO3 20 mEq/L (21-27); ABG Oxygen Saturation 99 % (95-98); ABG PCO2 28 mmHg (35-45); ABG PH 7.46 pH Units (7.32-7.45); ABG PO2 116 mmHg (85-104); ABG TCO2 21 mEq/L (20-26)
[2019-01-30 18:08] LABS: Basophils % 0.1 %; Eosinophils # 0.1 K/mcL (0.0-0.6); Eosinophils % 0.8 %; Hematocrit 30.6 % (37.5-50.1); Hemoglobin 10.1 g/dL (12.9-16.9); Immature Granulocytes % 0.3 % (0-4); Lymphocytes # 0.2 K/mcL (0.6-4.6); Lymphocytes % 2.2 %; Mean Corpuscular Hemoglobin 32.6 pg (28.0-33.3); Mean Corpuscular Volume 98.7 fL (83.0-100.0); Mean Platelet Volume 9.3 fL (9.4-12.4); Monocytes # 0.2 K/mcL (0.0-1.3); Neutrophils # 7.3 K/mcL (1.6-8.9); Platelet Count 373 K/mcL (140-400); Red Cell Distribution Width 17.4 % (11.5-14.5); Segmented Neutrophils % 93.6 %; White Blood Count 7.8 K/mcL (4.3-11.1)
[2019-01-30 18:27] LABS: BUN/Creatinine Ratio 10 (6-26); Blood Urea Nitrogen 7 mg/dL (8-23); Calcium 8.2 mg/dL (8.6-10.3); Carbon Dioxide 24 mEq/L (23-29); Chloride 104 mEq/L (98-107); Glucose 117 mg/dL (70-105); Osmolality,Calculated 283 (280-300); Potassium 3.6 mEq/L (3.5-5.1); Sodium 137 mEq/L (136-145); eGFR For African Americans > 60 (> 60); eGFR For Non-African Americans > 60 (> 60)
[2019-01-30] MEDS: Morphine Sulfate 2 MG/ML SYRINGE IVP PRN (18:28)
[2019-01-31] MEDS: Ipratropium/Albuterol Neb 3 ML IH SCH ×6 (03:26→23:26)
[2019-01-31] MEDS: *HR* Heparin 5,000 UNIT/ML VIAL SQ SCH ×3 (05:59→21:02)
[2019-01-31] MEDS ORDERED: Potassium Phosphate 44 MEQ in 0.9 % Sodium Chloride 250 ML IVPB ONE (08:39)
[2019-01-31] MEDS: Ondansetron 4 MG/2 ML VIAL IVP PRN (09:26)
[2019-02-01] MEDS: Morphine Sulfate 2 MG/ML SYRINGE IVP PRN (00:29)
[2019-02-01] MEDS: Ipratropium/Albuterol Neb 3 ML IH SCH ×6 (03:44→23:26)
[2019-02-01] MEDS: *HR* Heparin 5,000 UNIT/ML VIAL SQ SCH ×3 (05:27→21:09)
[2019-02-01] MEDS: Vancomycin Oral Soln 125 MG/2.5 ML UDC PO SCH ×3 (13:50→21:10)
[2019-02-02] MEDS: Ipratropium/Albuterol Neb 3 ML IH SCH ×7 (04:12→23:32)
[2019-02-02] MEDS: *HR* Heparin 5,000 UNIT/ML VIAL SQ SCH ×4 (05:57→20:03)
[2019-02-02] MEDS: Vancomycin Oral Soln 125 MG/2.5 ML UDC PO SCH ×4 (08:17→20:02)
[2019-02-02] MEDS: Ondansetron 4 MG/2 ML VIAL IVP PRN (10:01)
[2019-02-02] MEDS: Morphine Sulfate 2 MG/ML SYRINGE IVP PRN (20:03)
[2019-02-03] MEDS: Ipratropium/Albuterol Neb 3 ML IH SCH ×5 (03:31→19:51)
[2019-02-03] MEDS: Vancomycin Oral Soln 125 MG/2.5 ML UDC PO SCH ×4 (07:15→20:00)
[2019-02-03] MEDS: *HR* Heparin 5,000 UNIT/ML VIAL SQ SCH ×3 (07:15→19:59)
[2019-02-03] MEDS: Ondansetron 4 MG/2 ML VIAL IVP PRN (09:46)
[2019-02-03] MEDS: *HR* Promethazine 25 MG/ML VIAL IVP PRN (10:37)
[2019-02-03 11:40] LABS: Hematocrit 29.2 % (37.5-50.1); Hemoglobin 9.9 g/dL (12.9-16.9); Mean Corpuscular HGB Conc 33.9 g/dL (31.6-35.5); Mean Corpuscular Hemoglobin 32.7 pg (28.0-33.3); Mean Corpuscular Volume 96.4 fL (83.0-100.0); Mean Platelet Volume 8.9 fL (9.4-12.4); Platelet Count 312 K/mcL (140-400); Red Blood Count 3.03 M/mcL (4.19-5.50); Red Cell Distribution Width 17.1 % (11.5-14.5); White Blood Count 6.2 K/mcL (4.3-11.1)
[2019-02-03] MEDS: Morphine Sulfate 2 MG/ML SYRINGE IVP PRN (11:49)
[2019-02-03 12:00] LABS: Alanine Aminotransferase 26 Units/L (7-52); Albumin/Globulin Ratio 1.1 (1.1-2.2); Alkaline Phosphatase 60 Units/L (34-104); Aspartate Amino Transferase 15 Units/L (13-39); BUN/Creatinine Ratio 7 (6-26); Bilirubin,Direct 0.1 mg/dL (0.0-0.2); Bilirubin,Indirect 0.2 mg/dL (0.0-1.0); Bilirubin,Total 0.3 mg/dL (0.3-1.0); Blood Urea Nitrogen 5 mg/dL (8-23); Calcium 8.2 mg/dL (8.6-10.3); Carbon Dioxide 27 mEq/L (23-29); Chloride 100 mEq/L (98-107); Globulin 2.7 g/dL (2.4-3.5); Glucose 94 mg/dL (70-105); Osmolality,Calculated 275 (280-300); Potassium 2.9 mEq/L (3.5-5.1); Sodium 134 mEq/L (136-145); Total Protein 5.7 g/dL (6.4-8.9); eGFR For African Americans > 60 (> 60); eGFR For Non-African Americans > 60 (> 60)
[2019-02-04] MEDS: Ipratropium/Albuterol Neb 3 ML IH SCH ×6 (00:01→19:59)
[2019-02-04] MEDS: Morphine Sulfate 2 MG/ML SYRINGE IVP PRN (00:36)
[2019-02-04] MEDS: *HR* Heparin 5,000 UNIT/ML VIAL SQ SCH ×3 (06:36→20:57)
[2019-02-04] MEDS: Vancomycin Oral Soln 125 MG/2.5 ML UDC PO SCH ×4 (07:50→20:43)
[2019-02-04] MEDS ORDERED: Potassium Chloride 40 MEQ, Lidocaine 1% 2 ML in 0.9 % Sodium Chloride 500 ML IVPB ONE ×2 (08:14→12:00)
[2019-02-05] MEDS: Ipratropium/Albuterol Neb 3 ML IH SCH ×4 (00:25→11:12)
[2019-02-05] MEDS: *HR* Heparin 5,000 UNIT/ML VIAL SQ SCH (06:53)
[2019-02-05] MEDS: Vancomycin Oral Soln 125 MG/2.5 ML UDC PO SCH ×2 (09:00→13:54)
[2019-02-05 10:51] LABS: BUN/Creatinine Ratio 6 (6-26); Blood Urea Nitrogen 4 mg/dL (8-23); Calcium 8.8 mg/dL (8.6-10.3); Carbon Dioxide 25 mEq/L (23-29); Chloride 100 mEq/L (98-107); Glucose 134 mg/dL (70-105); Osmolality,Calculated 275 (280-300); Potassium 3.5 mEq/L (3.5-5.1); Sodium 133 mEq/L (136-145); eGFR For African Americans > 60 (> 60); eGFR For Non-African Americans > 60 (> 60)
[2019-02-05 11:23] VITALS: BP 149/78
[2019-02-05] MEDS ORDERED: Potassium Chloride Elixir 20 MEQ/15 ML UDC GTUBE ONE (13:24)
== END 2019-02-05 14:56 | DRG 326 ==
LOC: SAMDAY 07:20 → ICNU 13:58 → 2NNU 01-22 18:34
PROVIDERS: ADMIT Thoracic Surgery (Cardiothoracic Vascular Surgery); ATTEND Thoracic Surgery (Cardiothoracic Vascular Surgery)